=== PATIENT | male | born 1930 | race Caucasian/White ===

== ENCOUNTER 2018-03-06 18:15 | Inpatient (IN) ==
[2018-03-06] MEDS ORDERED: 0.9 % SODIUM CHLORIDE 1,000 ML IV ONE (18:25)
[2018-03-06 19:32] LABS: Basophils # (Auto) 0 K/mcL (0.0-0.3); Basophils % (Auto) 0.2 % (0.0-2.0); Eosinophils # (Auto) 0 K/mcL (0.0-0.7); Eosinophils % (Auto) 0.5 % (0.0-7.0); Granulocytes % (Auto) 76.8 % (38.0-78.0); Lymphocytes # (Auto) 1.1 K/mcL (1.5-4.8); Lymphocytes % (Auto) 12.4 % (15.5-49.0); Mean Cell Volume 98.8 fL (80.0-100.0); Mean Corpuscular HGB Conc 33.2 g/dL (31.0-36.0); Mean Corpuscular Hemoglobin 32.8 pg (26.0-34.0); Monocytes # (Auto) 0.9 K/mcL (0.1-0.9); Monocytes % (Auto) 10.1 % (1.0-12.0); Platelet Count 193 K/mcL (140-440); Red Cell Distribution Width 13.8 % (11.5-14.5)
[2018-03-06 19:42] LABS: Appearance,Urine CLOUDY; Bacteria,Urine 0 /hpf (0); Bilirubin,Urine NEG (NEG); Calcium Oxalate Crystals,Urine FEW /hpf (0); Color,Urine YELLOW; Glucose,Urine (UA) NEGATIVE (NEG); Leukocyte Esterase,Urine 25 /uL (NEG); Mucus,Urine MANY /hpf (0); Protein,Urine NEG (NEG); Specific Gravity,Urine 1.017 (1.000-1.035); Urine Blood NEG mg/dL (<0.03); Urine Hyaline Cast 3 /lpf (0-2); Urine RBC 2 /hpf (0-1); Urine Squamous Epithelial Cell 0 /hpf (0-4); Urine WBC 5 /hpf (0-4); Urobilinogen,Urine NEG (NEG)
[2018-03-06 19:55] LABS: ALT/SGPT 28 U/l (0-40); Albumin 3.9 gm/dL (3.2-5.2); Albumin/Globulin Ratio 1.6 (1.0-2.3); Alkaline Phosphatase 143 U/L (39-117); Blood Urea Nitrogen 27 mg/dl (8-23)
--- NOTE | 2018-03-06 20:25 | Emergency Department Note ---
Abdominal Pain HPI - General Chief Complaint: Abdominal Pain Stated Complaint: left lower abd pain Time Seen by Provider: 03/06/18 18:20 Source: patient Mode of arrival: ambulatory Limitations: no limitations - History of Present Illness HPI Narrative: 87-year-old male presents with abdominal pain for last week or so. states he just has generally decreased energy and weakness over the last week as well. States he constantly goes poop, a peanut butter consistency a little bit and can go a lot at one time. She also believes he is retaining urine. He is only gone once about 50 mL today. She has been checking his vital signs at home and they have been stable. Patient can give very little history and is poor historian with dementia. The is giving most of the history. She is concerned because this bowel movement issue is not normal for him. He is also been complaining of abdominal pain. No fever chills. No nausea or vomiting. Decreased appetite over the last week. He also has a history of kidney stones and obstruction. - Related Data Home Medications Medication Instructions Recorded Confirmed Ferrous Sulfate [Slow Release Iron] 45 mg PO DAILY 05/25/16 01/09/18 Multivitamin With [place] 3 1 cap PO DAILY 05/25/16 01/09/18 tamsulosin 0.4 mg capsule 0.4 mg PO QDAY 07/06/17 01/09/18 Previous Rx's Medication Instructions Recorded albuterol sulfate HFA 90 1 inh INHALATION Q6HP PRN #18 g 03/21/17 mcg/actuation aerosol inhaler ipratropium-albuterol 0.5 mg-3 3 ml INHALATION Q6H PRN #360 ml 04/10/17 mg(2.5 mg base)/3 mL nebulization soln testosterone cream See Label Instructions TOPICAL 09/21/17 .apply 2 clicks #30 MDD 5mg /0.25mg DC Oxygen #1 12/27/17 sildenafil (antihypertensive) 20 20 mg PO ONCE PRN #20 tab 01/23/18 mg tablet Allergies Allergy/AdvReac Type Severity Reaction Status Date / Time No Known Drug Allergies Allergy Verified 03/06/18 18:19 Review of Systems All systems ED: reviewed and negative except as stated. Abdominal Pain PMH - Past Medical History [facility] Narrative: Medical History (Last Reviewed 01/11/18 @ 11:18 by Kemal Crenshaw DO) Upper respiratory infection (Acute) Asthma exacerbation (Acute) COPD (chronic obstructive pulmonary disease) (Chronic) Hypoxemia (Chronic) Dysphagia (Chronic) Cough (Acute) Osteopenia determined by x-ray (Chronic) Kidney stones (Chronic) Community acquired bacterial pneumonia (Acute) Rib pain on right side (Acute) History of COPD (Acute) Aspiration pneumonia (Acute 05/27/16) Past Surgical History (Last Reviewed 01/11/18 @ 11:18 by Kemal Crenshaw DO) History of hernia surgery (Chronic) Medical history: Reports: asthma, COPD, kidney stones, renal disease, other ( pneumonia. Gallstones. Esophageal stricture. BPH.) Psychiatric history: Reports: no psych history - Social History Smoking status: Never smoker Alcohol use: Reports: None Drug use: Reports: none Physical Exam Limitations: no limitations General appearance: alert (Alert, pleasant, and cooperative but often confused at times an extremely poor historian) Head: atraumatic, normocephalic, normal inspection Eye: Present: normal appearance. Absent: conjunctival injection ENT: mucous membranes moist Chest: Present: normal inspection, symmetric chest wall rise Respiratory: Present: normal lung sounds bilaterally. Absent: respiratory distress, wheezes, accessory muscle use Cardiovascular: Present: regular rate, normal heart sounds Abdominal: Present: soft, tenderness (Diffuse abdominal tenderness, seems to be worse in the left lower quadrant), normal bowel sounds. Absent: distention, mass Back: Absent: CVA tenderness (R), CVA tenderness (L) Psychiatric: Present: normal affect, normal mood Skin: Present: warm, dry, intact, normal color. Absent: rash, cyanosis, diaphoresis, erythema Course Vital Signs Temperature 97.7 F 03/06/18 18:16 Pulse Rate 81 03/06/18 18:16 Respiratory Rate 18 03/06/18 18:16 Blood Pressure 117/72 03/06/18 18:16 Pulse Oximetry (%) 96 03/06/18 18:16 Temperature 97.7 F 03/06/18 18:16 Pulse Rate 81 03/06/18 18:16 Respiratory Rate 18 03/06/18 18:16 Blood Pressure 117/72 03/06/18 18:16 Pulse Oximetry (%) 96 03/06/18 18:16 Abdominal Pain - Lab Data Lab results reviewed: Yes I reviewed the patient's lab results. Result diagrams: 03/06/18 18:45 03/06/18 18:45 Lab Results 03/06/18 03/06/18 03/06/18 Range/Units 18:38 18:45 18:45 WBC 9.2 (4.5-11.0) K/mcL RBC 4.20 L (4.50-5.90) M/mcL Hgb 13.8 (13.5-16.5) g/dL Hct 41.5 (41.0-55.0) % POC Hct (41.0-55.0) % MCV 98.8 (80.0-100.0) fL MCH 32.8 (26.0-34.0) pg MCHC 33.2 (31.0-36.0) g/dL RDW 13.8 (11.5-14.5) % Plt Count 193 (140-440) K/mcL MPV 8.3 (7.4-10.4) fL Gran % 76.8 (38.0-78.0) % Lymph % (Auto) 12.4 L (15.5-49.0) % [place] % (Auto) 10.1 (1.0-12.0) % Eos % (Auto) 0.5 (0.0-7.0) % Baso % (Auto) 0.2 (0.0-2.0) % Gran # 7.1 (1.8-8.0) K/mcL Lymph # (Auto) 1.1 L (1.5-4.8) K/mcL [place] # (Auto) 0.9 (0.1-0.9) K/mcL Eos # (Auto) 0 (0.0-0.7) K/mcL Baso # (Auto) 0 (0.0-0.3) K/mcL VBG Lactic Acid (0.5-2.2) mmol/L POC Sodium (133-145) mmol/L Sodium 137 (133-145) mmol/L POC Potassium (3.3-5.1) mmol/L Potassium 4.2 (3.3-5.1) mmol/L POC Chloride (96-108) mmol/L Chloride 100 (96-108) mmol/L Carbon Dioxide 25 (22-30) mmol/L POC Total CO2 (22-30) mmol/L Anion Gap 12.0 (8-16) POC BUN (8-23) mg/dl BUN 27 H (8-23) mg/dl Creatinine 1.1 (0.7-1.2) mg/dl POC Creatinine (0.7-1.2) mg/dl GFR Calculation 60 Glucose 111 H (70-105) mg/dL POC Glucose (70-105) mg/dL Calcium 8.8 (8.6-10.4) mg/dl POC WB Ioniz Calcium (1.16-1.32) mmol/L Total Bilirubin 0.6 (0.0-1.0) mg/dL AST 25 (0-37) U/l ALT 28 (0-40) U/l Alkaline Phosphatase 143 H (39-117) U/L Total Protein 6.4 (5.9-8.4) gm/dL Albumin 3.9 (3.2-5.2) gm/dL Globulin 2.5 (2.2-3.7) gm/dL Albumin/Globulin Ratio 1.6 (1.0-2.3) Urine Color Yellow Urine Appearance Cloudy Urine pH 5.0 (5.0-9.0) Ur Specific [place] 1.017 (1.000-1.035) Urine Protein Neg (NEG) mg/dL Urine Glucose (UA) Negative (NEG) mg/dL Urine Ketones Neg (NEG) mg/dL Urine Occult Blood Neg (<0.03) mg/dL Urine Nitrate Neg (NEG) Urine Bilirubin Neg (NEG) mg/dL Urine Urobilinogen Neg (NEG) mg/dL Ur Leukocyte Esterase 25 A (NEG) /uL Urine RBC 2 H (0-1) /hpf Urine WBC 5 H (0-4) /hpf Ur Squamous Epith Cells 0 (0-4) /hpf Calcium Oxalate Crystal Few A (0) /hpf Urine Bacteria 0 (0) /hpf Hyaline Casts 3 H (0-2) /lpf Urine Mucus Many A (0) /hpf Ur Culture Indicated? Yes 03/06/18 03/06/18 Range/Units 18:45 19:17 WBC (4.5-11.0) K/mcL RBC (4.50-5.90) M/mcL Hgb (13.5-16.5) g/dL Hct (41.0-55.0) % POC Hct 40.0 L (41.0-55.0) % MCV (80.0-100.0) fL MCH (26.0-34.0) pg MCHC (31.0-36.0) g/dL RDW (11.5-14.5) % Plt Count (140-440) K/mcL MPV (7.4-10.4) fL Gran % (38.0-78.0) % Lymph % (Auto) (15.5-49.0) % [place] % (Auto) (1.0-12.0) % Eos % (Auto) (0.0-7.0) % Baso % (Auto) (0.0-2.0) % Gran # (1.8-8.0) K/mcL Lymph # (Auto) (1.5-4.8) K/mcL [place] # (Auto) (0.1-0.9) K/mcL Eos # (Auto) (0.0-0.7) K/mcL Baso # (Auto) (0.0-0.3) K/mcL VBG Lactic Acid 1.2 (0.5-2.2) mmol/L POC Sodium 136 (133-145) mmol/L Sodium (133-145) mmol/L POC Potassium 4.0 (3.3-5.1) mmol/L Potassium (3.3-5.1) mmol/L POC Chloride 101 (96-108) mmol/L Chloride (96-108) mmol/L Carbon Dioxide (22-30) mmol/L POC Total CO2 26 (22-30) mmol/L Anion Gap (8-16) POC BUN 31 H (8-23) mg/dl BUN (8-23) mg/dl Creatinine (0.7-1.2) mg/dl POC Creatinine 1.1 (0.7-1.2) mg/dl GFR Calculation Glucose (70-105) mg/dL POC Glucose 113 H (70-105) mg/dL Calcium (8.6-10.4) mg/dl POC WB Ioniz Calcium 1.06 L (1.16-1.32) mmol/L Total Bilirubin (0.0-1.0) mg/dL AST (0-37) U/l ALT (0-40) U/l Alkaline Phosphatase (39-117) U/L Total Protein (5.9-8.4) gm/dL Albumin (3.2-5.2) gm/dL Globulin (2.2-3.7) gm/dL Albumin/Globulin Ratio (1.0-2.3) Urine Color Urine Appearance Urine pH (5.0-9.0) Ur Specific [place] (1.000-1.035) Urine Protein (NEG) mg/dL Urine Glucose (UA) (NEG) mg/dL Urine Ketones (NEG) mg/dL Urine Occult Blood (<0.03) mg/dL Urine Nitrate (NEG) Urine Bilirubin (NEG) mg/dL Urine Urobilinogen (NEG) mg/dL Ur Leukocyte Esterase (NEG) /uL Urine RBC (0-1) /hpf Urine WBC (0-4) /hpf Ur Squamous Epith Cells (0-4) /hpf Calcium Oxalate Crystal (0) /hpf Urine Bacteria (0) /hpf Hyaline Casts (0-2) /lpf Urine Mucus (0) /hpf Ur Culture Indicated? - Radiology Data Radiology results reviewed: Yes I reviewed the patient's radiology results. Disposition Pt seen by [facility]/PA only: Yes Clinical Impression: Fecal impaction, Urinary retention Disposition: Home, Self-Care Condition: Fair Instructions: Fecal Impaction (ED), Urinary Retention in Men (ED) Additional Instructions: Increase oral fluids and rest. Follow-up with primary care provider within the next 1-2 days for recheck and to help get established with home health Referrals: Kemal Crenshaw DO [Physician] -
[2018-03-06] MEDS ORDERED: LIDOCAINE JEL 2% 1 TUBE 30GM TOPICAL ONE (21:14)
[2018-03-06] MEDS ORDERED: FLEETS ADULT ENEMA PR ONE (21:57)
[2018-03-06] MEDS ORDERED: PEG 3350/NA SULF,BICARB,CL/KCL 4,000 ML ORAL.SOL PO ONE (23:22)
[2018-03-07] MEDS ORDERED: ONDANSETRON ODT 4 MG TABLET SL ONE (01:08)
--- NOTE | 2018-03-07 05:00 | Cat Scan Report ---
CLINICAL INFORMATION: Urinary retention and pelvic pain COMPARISON: 12/01/2017 chest abdomen and pelvic CT TECHNIQUE: Following enteric contrast, 80 cc of Isovue-300 were injected intravenously, and 60 seconds later, 0.625 mm helical slices were obtained from the mid heart through the subtrochanteric regions. Following reconstruction, 2.5 mm sagittal, coronal and axial reformatted images were processed and reviewed at bone, lung and soft tissue windows. Five minutes later, 0.625 mm helical slices were obtained from the mid heart through the kidneys and viewed at soft tissue windows.The exam was performed using radiation dose optimization techniques including, but not limited to, automated exposure control, adjustment of the mA and/or kV according to patient size and use of iterative reconstruction technique. FINDINGS: The lung bases show minimal scarring or atelectasis in the lower lobes and lingula. There are no effusions. The visualized heart is grossly normal. Images through the abdomen show a 5 mm simple cyst in the subdiaphragmatic right hepatic lobe - no significant hepatic abnormality. The gallbladder and bile ducts are normal: CBD is 5 mm. There are scattered calcifications within the pancreatic neck, body and tail - as previously seen. Findings compatible with chronic inactive pancreatitis. Pancreatic duct is slightly dilated - 3 mm also stable. A few nonobstructing stones the calyces of both kidneys ranging up to three mm mid calyx of the left kidney. This is unchanged. Bilateral simple renal cysts also stable. Both adrenal glands, spleen and aorta are normal in contour and caliber without focal lesion. 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 There is mild poststenotic dilatation. The SMA shows atherosclerotic plaque, but no stenosis. Both renal arteries, RONALDO and iliac arteries contain calcified atherosclerotic plaque, but no stenoses . Images through the pelvis show urinary bladder is mildly distended. The prostate is surgically absent resulting in mild dilatation of the posterior urethra. A very large amount of stool is present within the rectosigmoid region. The remainder of the colon contains only moderate stool. Small bowel and stomach are unremarkable. Small hiatal hernia is again noted. There is no free air, free fluid or adenopathy. Bone windows show acute refracture left lateral 11th rib and old fracture of the left 10th rib. IMPRESSION: 1. Massive stool in the rectosigmoid region which extrinsically compresses the posterior urinary bladder wall - possibly affecting urination function. 2. Small nonobstructing stones in the calyces of both kidneys ranging up to 3 mm. No evidence of obstructing stone. Bilateral renal cysts - stable 3. Scattered calcifications within the pancreatic body and tail compatible with chronic inactive pancreatitis. Mild dilatation of the pancreatic duct also stable 4. 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 Please correlate with post prandial pain 5. Small hiatal hernia stable 6. Acute refracture left lateral 11th rib Interpreted and Authenticated by: Kemal Ornelas 03/07/18
--- NOTE | 2018-03-07 08:53 | Emergency Department Note ---
ED Note Addendum Note Addendum: Nurses worked on this patient through the night with some disimpaction and had a drinker jugular GoLYTELY and still have not completed his passage of stool. He has been here now 14 and half hours and will be admitted to the hospital observation for continued attempts at relieving his impaction and constipation. The patient was doing well this morning is actually hungry and a little bit of breakfast.
--- NOTE | 2018-03-07 10:19 | XRay Report ---
CLINICAL INFORMATION: Cough, COMPARISON: 12/29/2017 FINDINGS: Heart size, mediastinum and pulmonary vessels are normal. Mild patchy left basilar infiltrate is developed. Right diaphragm is mildly elevated. COPD changes noted. IMPRESSION: Mild patchy left basilar infiltrate. COPD Mild elevation right diaphragm Interpreted and Authenticated by: Kemal Ornelas 03/07/18
--- NOTE | 2018-03-07 10:50 | Internal Med History&Physical ---
Medical - H&P: HPI Patient information: Note initiated : 03/07/18 at 10:48 am Service Date, if different from initiated Date: [] Patient: Reginald Gonzales 87 y/o M admitted on 03/07/18 for left lower abd pain. Chief Complaint: [] History of present illness: Mr. Gonzales is a 87 year old Male with multiple medical issues, presents to the ER yesterday evening with complaints of abdominal pain, difficulty in urination and not feeling well. The patient ntoes that he has not been having regular bowel movements, last decent BM was 2 weeks ago, on and off little stool has since come but not the usual amount. He did not endorse any stool incontinence however ED note mentions that the patient has had some stool incontinence. The patient is a very poor history provider. This at bedside help getting some answers. The patient notes abdominal pain has been going on since yesterday, lower abdomen moderate to severe in nature, it is also intermittent. Spasmodic. No aggravating or relieving factors. The patient has history of COPD, chronic aspirations, dysphagia. He denies any history of bowel issues in the past. He has never had any colonoscopy done. The patient in the ED had stable vital signs, unremarkable labs, CT abdomen and pelvis showed very large stool burden in the in the rectosigmoid region, compressing the posterior part of the bladder possibly causing urinary symptoms. The ED physician yesterday started the patient on GoLYTELY and also did manual evacuation. The patient was in the ED for 14 hours, patient did not have a decent bowel movement. The plan was to continue aggressive bowel regimen and see if he is able to pass the stools. He also received fleets enema in the ED. Given that the patient was 50 was done in the ED and had not responded to treatment he was therefore admitted to the hospital for observation The patient denies any headache, has diplopia has been seen by [employer] who has referred him to a neurologist. Intermittent difficulty in swallowing, denies any chest pain or shortness of breath no acute cough but did have cough few days ago. He was treated with antibiotics for same. The patient has no nausea no vomiting, lower abdominal pain as reported urinary symptoms as reported. He denies any acute joint pain skin rashes. The patient visits to be full code Review of systems: Denies headache, dizziness, diplopia present chronic as outpatient follow-up Denies chest pain, palpitations Denies cough or shortness of breath Abdominal pain present, no nausea vomiting.. Medical - H&P: [facility] Medical history: Medical History (Last Reviewed 01/11/18 @ 11:18 by Kemal Crenshaw DO) Upper respiratory infection (Acute) Asthma exacerbation (Acute) COPD (chronic obstructive pulmonary disease) (Chronic) Hypoxemia (Chronic) Dysphagia (Chronic) Cough (Acute) Osteopenia determined by x-ray (Chronic) Kidney stones (Chronic) Community acquired bacterial pneumonia (Acute) Rib pain on right side (Acute) History of COPD (Acute) Aspiration pneumonia (Acute 05/27/16) Surgical history: Past Surgical History (Last Reviewed 01/11/18 @ 11:18 by Kemal Crenshaw DO) History of hernia surgery (Chronic) Family history: reviewed and not pertinent Medical - H&P: Meds Home Medications Medication Instructions Recorded Confirmed Type Ferrous Sulfate [Slow Release Iron] 45 mg PO DAILY 05/25/16 03/07/18 History Multivitamin With [place] 3 1 cap PO DAILY 05/25/16 03/07/18 History albuterol sulfate HFA 90 1 inh INHALATION Q6HP PRN #18 g 03/21/17 03/07/18 Rx mcg/actuation aerosol inhaler ipratropium-albuterol 0.5 mg-3 3 ml INHALATION Q6H PRN #360 ml 04/10/17 Rx mg(2.5 mg base)/3 mL nebulization soln tamsulosin 0.4 mg capsule 0.4 mg PO QDAY 07/06/17 03/07/18 History testosterone cream See Label Instructions TOPICAL 09/21/17 01/09/18 Rx .apply 2 clicks #30 MDD 5mg /0.25mg DC Oxygen #1 12/27/17 01/09/18 Rx sildenafil (antihypertensive) 20 20 mg PO ONCE PRN #20 tab 01/23/18 Rx mg tablet Allergies Allergy/AdvReac Type Severity Reaction Status Date / Time No Known Drug Allergies Allergy Verified 03/06/18 18:19 Medical - H&P: Exam - Constitutional Vitals: Temp Pulse Resp BP Pulse Ox 97.7 F 67 18 152/84 94 03/07/18 09:38 03/07/18 09:38 03/07/18 09:38 03/07/18 09:38 03/07/18 09:38 Exam: Constitutional; Afebrile, cooperative, alert, not in distress. but slow in responding to questions and movements Eyes- No icterus, , No periorbital swelling Ears- Ext ear normal, hearing normal to conversation. Neck- Midline trachea, supple Respiratory system: Air Entry equal on both sides, No crackles or wheezing, no rhonchi. CVS- Rate rhythm regular, S1,S2 heard, no gallop, no rub. Abdomen- Soft nontender abdomen, he is a bit tender to palpation on the lower abdomen, but no guarding or rigidity noted. INFORMATION SYSTEMS CONSULTANT- AOOx3, moving all extremities, no gross focal deficit noted. Medical - H&P: Reslt - Labs CBC & Chem 7: 03/06/18 18:45 03/06/18 18:45 Labs: Short CBC 03/06/18 Range/Units 18:45 WBC 9.2 (4.5-11.0) K/mcL Hgb 13.8 (13.5-16.5) g/dL Hct 41.5 (41.0-55.0) % Plt Count 193 (140-440) K/mcL BMP 03/06/18 18:45 Sodium 137 Potassium 4.2 Chloride 100 Carbon Dioxide 25 BUN 27 H Creatinine 1.1 Glucose 111 H Calcium 8.8 Liver Function 03/06/18 Range/Units 18:45 Total Bilirubin 0.6 (0.0-1.0) mg/dL AST 25 (0-37) U/l ALT 28 (0-40) U/l Alkaline Phosphatase 143 H (39-117) U/L Albumin 3.9 (3.2-5.2) gm/dL Urine 03/06/18 Range/Units 18:38 Urine Color Yellow Urine Appearance Cloudy Urine pH 5.0 (5.0-9.0) Ur Specific [place] 1.017 (1.000-1.035) Urine Protein Neg (NEG) mg/dL Urine Glucose (UA) Negative (NEG) mg/dL Medical - H&P: A/P - Narrative A/P Narrative: A/P Acute constipation Abdominal pain COPD h/o recurrent Aspiration pna Plan Admit as obs Pt had nearly finished his golyotely, enema and digital evacuation done in the ER plan to give milk of molases enema to helf soften the stools cxr shows left lower lobe new possible infiltrate, no clincal symptms, check procalcitonin. resume home meds Gen surgery consult if pt does not respond DVT hep sc Diet NPO for now/ meds ok Full code. Social History - Social History marital status: - Tobacco smoking status: Never smoker - Alcohol alcohol intake frequency: holiday/special occasion only - Substance use substance use type: does not use
[2018-03-07] MEDS ORDERED: ACETAMINOPHEN 650 MG/65 ML BOTTLE IV PRN ×3 (10:54→11:31)
[2018-03-07] MEDS ORDERED: ACETAMINOPHEN 325 MG TABLET PO PRN (11:25)
[2018-03-07] MEDS ORDERED: oxyCODONE HCL 5 MG TABLET PO PRN (11:25)
[2018-03-07] MEDS ORDERED: ONDANSETRON ODT 4 MG TABLET SL PRN (11:25)
[2018-03-07] MEDS: FAMOTIDINE/PF 20 MG/2 ML VIAL IV SCH ×2 (12:02→22:18)
[2018-03-07] MEDS: HEPARIN 5,000 UNIT/ML VIAL SQ SCH ×2 (12:02→22:18)
[2018-03-07] MEDS: IPRATROPIUM/ALBUTEROL 3 ML AMPUL.NEB NEB SCH ×2 (13:38→19:18)
[2018-03-07 15:31] LABS: Basophils # (Auto) 0 K/mcL (0.0-0.3); Basophils % (Auto) 0.1 % (0.0-2.0); Eosinophils # (Auto) 0 K/mcL (0.0-0.7); Eosinophils % (Auto) 0.1 % (0.0-7.0); Granulocytes % (Auto) 81.9 % (38.0-78.0); Lymphocytes # (Auto) 0.7 K/mcL (1.5-4.8); Lymphocytes % (Auto) 7.4 % (15.5-49.0); Mean Cell Volume 99.3 fL (80.0-100.0); Mean Corpuscular Hemoglobin 32.7 pg (26.0-34.0); Monocytes % (Auto) 10.5 % (1.0-12.0); Platelet Count 176 K/mcL (140-440); RBC 4.24 M/mcL (4.50-5.90); Red Cell Distribution Width 13.6 % (11.5-14.5)
[2018-03-07 15:41] LABS: ALT/SGPT 22 U/l (0-40); Albumin 3.6 gm/dL (3.2-5.2); Albumin/Globulin Ratio 1.5 (1.0-2.3); Alkaline Phosphatase 147 U/L (39-117); Bilirubin,Direct < 0.2 mg/dL (0.0-0.3); Blood Urea Nitrogen 21 mg/dl (8-23); Gamma Glutamyl Transpeptidase 28 U/L (8-61)
[2018-03-07] MEDS ORDERED: DEXTROSE 5%-1/2NS W/20MEQ KCL 1,000 ML IV SCH (18:30)
[2018-03-07] MEDS: 0.9 % SODIUM CHLORIDE 10 ML SYRINGE IV SCH ×2 (19:23→22:11)
[2018-03-08] MEDS: IPRATROPIUM/ALBUTEROL 3 ML AMPUL.NEB NEB SCH ×4 (03:37→19:12)
[2018-03-08] MEDS: 0.9 % SODIUM CHLORIDE 10 ML SYRINGE IV SCH ×3 (05:10→20:45)
--- NOTE | 2018-03-08 07:46 | XRay Report ---
CLINICAL INFORMATION: Abdominal pain COMPARISON: Abdomen and pelvic CT 03/06/2018 FINDINGS: The amount of stool in the distal sigmoid mass or rectal region has decreased since CT two days prior. There is moderate residual. The colon and small bowel remain mildly dilated with scattered air-fluid levels on the upright compatible with mild ileus.. No free air, soft tissue mass or organomegaly. IMPRESSION: Mild ileus with a moderate stool in the rectosigmoid region. Stool volume has decreased since the CT two days ago Interpreted and Authenticated by: Kemal Ornelas 03/08/18
[2018-03-08] MEDS: PIPERACILLIN SODIUM/TAZOBACTAM 3.375 GM in DEXTROSE 5% IN WATER 50 ML IV SCH ×3 (09:31→18:26)
[2018-03-08] MEDS: HEPARIN 5,000 UNIT/ML VIAL SQ SCH ×2 (09:37→20:46)
[2018-03-08] MEDS: FAMOTIDINE/PF 20 MG/2 ML VIAL IV SCH ×2 (09:38→20:46)
[2018-03-08] MEDS ORDERED: MAGNESIUM CITRATE 300 ML ORAL.SOL PO ONE (09:48)
--- NOTE | 2018-03-08 11:25 | Internal Med Progress Note ---
Medical - PN: Subj Patient information: Note initiated : 03/08/18 at 11:23 am Service Date, if different from initiated Date: [] Patient: Reginald Gonzales 87 y/o M admitted on 03/08/18 for Left Lower Abd Pain/ Constipation. Chief Complaint: [] Interval history: Mr. Gonzales is a 87 year old Male with multiple medical issues, presents to the ER yesterday evening with complaints of abdominal pain, difficulty in urination and not feeling well. The patient ntoes that he has not been having regular bowel movements, last decent BM was 2 weeks ago, on and off little stool has since come but not the usual amount. He did not endorse any stool incontinence however ED note mentions that the patient has had some stool incontinence. The patient is a very poor history provider. This at bedside help getting some answers. The patient notes abdominal pain has been going on since yesterday, lower abdomen moderate to severe in nature, it is also intermittent. Spasmodic. No aggravating or relieving factors. The patient has history of COPD, chronic aspirations, dysphagia. He denies any history of bowel issues in the past. He has never had any colonoscopy done. The patient in the ED had stable vital signs, unremarkable labs, CT abdomen and pelvis showed very large stool burden in the in the rectosigmoid region, compressing the posterior part of the bladder possibly causing urinary symptoms. The ED physician yesterday started the patient on GoLYTELY and also did manual evacuation. The patient was in the ED for 14 hours, patient did not have a decent bowel movement. The plan was to continue aggressive bowel regimen and see if he is able to pass the stools. He also received fleets enema in the ED. Given that the patient was 50 was done in the ED and had not responded to treatment he was therefore admitted to the hospital for observation The patient denies any headache, has diplopia has been seen by fish butcher who has referred him to a neurologist. Intermittent difficulty in swallowing, denies any chest pain or shortness of breath no acute cough but did have cough few days ago. He was treated with antibiotics for same. The patient has no nausea no vomiting, lower abdominal pain as reported urinary symptoms as reported. He denies any acute joint pain skin rashes. The patient visits to be full code 6/7 Patient seen and examined, overnight has had few liquid bowel movements but no major solid bowel movement. Patient was confused agitated last night I believe he also ripped his IV out. Chest x-ray shows possible pneumonia on the left side, although the pro-calcitonin is negative given his mental status changes we will start him on Zosyn. The patient underwent digital rectal evacuation for stools in the rectal vault today, I believe there is still some stool left in the upper part which was not accessible to digital evacuation. Change the status of the patient from observation to inpatient given possibility of a pneumonia as well as unresolved GI issues which would take more than 48 hours. Keep the patient n.p.o. Plan of care reviewed with the patient's . Patient overall has poor prognosis however the patient's notes that patient has had multiple infections bumped his back from every infection. The patient also has been experiencing some neurological issues like neuropathy, according to the that has some paranoid features. The patient has been referred to a neurologist. Pertinent ROS: Denies headache, dizziness Denies chest pain, palpitations Denies cough or shortness of breath abdominal pain not as severe, no nausea / vomiting. - Constitutional Vitals: Vital Signs Temp Pulse Resp BP Pulse Ox 98.9 F 64 18 121/74 94 03/08/18 08:00 03/08/18 04:00 03/08/18 08:00 03/08/18 08:00 03/08/18 08:00 Period Temp Pulse Resp BP Sys/Eduardo Pulse Ox Last 24 Hr 97.6 F-98.9 F 64-73 14-18 121-167/73-89 94-96 Intake and Output 03/07/18 03/08/18 03/08/18 21:59 05:59 13:59 Intake Total 793 / 793 50 / 50 Output Total 450 / 450 1075 / 1075 Balance -450 / -450 -282 / -282 50 / 50 Intake & Output: Intake & Output 03/07/18 03/08/18 03/08/18 21:59 05:59 13:59 Intake Total 793 / 793 50 / 50 Output Total 450 / 450 1075 / 1075 Balance -450 / -450 -282 / -282 50 / 50 Intake: IV 773 / 773 50 / 50 Dextrose 5%-1/2Ns W/20Meq KCl 1 773 / 773 ,000 ml @ 75 mls/hr IV .[id number] [facility] Rx#:[id number] Zosyn 3.375 gm In Dextrose 5% 50 / 50 in Water 50 ml @ 100 mls/hr IV Q6H [facility] Rx#:[id number] Oral 20 / 20 Output: Urine Catheter Amount 450 / 450 1075 / 1075 Other: Stool Size Copious Copious Moderate Stool Color Black Brown Brown Stool Consistency Loose Liquid Loose # Bowel Movements 1 1 # of times incontinent of 1 1 1 Bowels Exam: Constitutional; Afebrile, cooperative, alert, not in distress. keeps his eyes closed, does not talk much Eyes- No icterus, , No periorbital swelling Ears- Ext ear normal, hearing normal to conversation. Neck- Midline trachea, supple Respiratory system: Air Entry equal on both sides, No crackles or wheezing, no rhonchi. CVS- Rate rhythm regular, S1,S2 heard, no gallop, no rub. Abdomen- Soft nontender abdomen, no organomegaly, no tenderness, no guarding or rigidity, WHEEL PRESSER- AOOx2, moving all extremities, no gross focal deficit noted. Medical - PN: Obj Da - Labs CBC & Chem 7: 03/07/18 13:18 03/07/18 13:18 Labs: Abnormal Lab Results 03/07/18 03/07/18 03/06/18 13:18 13:18 18:45 RBC 4.24 L POC Hct 40.0 L Gran % 81.9 H Lymph % (Auto) 7.4 L Lymph # (Auto) 0.7 L [place] # (Auto) 1.0 H POC BUN 31 H BUN Glucose 107 H POC Glucose 113 H Calcium 8.3 L POC WB Ioniz Calcium 1.06 L Alkaline Phosphatase 147 H Ur Leukocyte Esterase Urine RBC Urine WBC Calcium Oxalate Crystal Hyaline Casts Urine Mucus 03/06/18 03/06/18 03/06/18 18:45 18:45 18:38 RBC 4.20 L POC Hct Gran % Lymph % (Auto) 12.4 L Lymph # (Auto) 1.1 L [place] # (Auto) POC BUN BUN 27 H Glucose 111 H POC Glucose Calcium POC WB Ioniz Calcium Alkaline Phosphatase 143 H Ur Leukocyte Esterase 25 A Urine RBC 2 H Urine WBC 5 H Calcium Oxalate Crystal Few A Hyaline Casts 3 H Urine Mucus Many A Meds: Medications Acetaminophen (Tylenol) 650 mg PO Q6HP PRN PRN Reason: PAIN/FEVER > 101 Albuterol/Ipratropium (Duoneb) 3 ml NEB Q6HRT [facility] Last Admin: 03/08/18 08:58 Dose: Not Given Famotidine (Pepcid) 20 mg IV Q12 [facility] Last Admin: 03/08/18 09:38 Dose: 20 mg Heparin Sodium (Porcine) (Heparin) 5,000 unit SQ Q12 [facility] Last Admin: 03/08/18 09:37 Dose: 5,000 unit Acetaminophen (Ofirmev) 650 mg in 65 mls @ 130 mls/hr IV Q6HP PRN PRN Reason: PAIN/FEVER > 101 Last Admin: 03/07/18 19:36 Dose: 130 mls/hr Piperacillin Sod/Tazobactam (Sod 3.375 gm/ Dextrose) 50 mls @ 100 mls/hr IV Q6H [facility] Last Infusion: 03/08/18 10:01 Dose: Infused Ondansetron HCl (Zofran Odt) 4 mg SL Q6HP PRN PRN Reason: Nausea And Vomiting Oxycodone HCl (Roxicodone) 5 mg PO Q4HP PRN PRN Reason: PAIN LEVEL 3-6 Last Admin: 03/07/18 11:41 Dose: 5 mg Polyethylene Glycol (Miralax) 17 gm PO TID [facility] Sodium Chloride (Saline Flush) 10 ml IV Q8 [facility] Last Admin: 03/08/18 05:10 Dose: Not Given Tamsulosin HCl (Flomax) 0.4 mg PO QDAY [facility] Medical - PN: A/P - Time Spent With Patient Total time spent is greater than 50% in coordination of care (as documented) at patient's floor/unit and/or counseling patient: - Narrative A/P Narrative: A/P Acute constipation Abdominal pain COPD possible aspiration pneumonia Plan change to inpt status Digital rectal evacuation done, today, start on miralax tid 17gms start on iv zosyn for aspiration pneumonitis, no wheezing on exam, duonebs q6hrs for copd. DVT hep sc Diet NPO for now/ meds ok Full code. Medical - PN: Qual - Stroke Symptom Onset Unknown: No - VTE Deep Vein Thrombosis/Pulmonary Embolism Present on Admission: No
[2018-03-08] MEDS: POLYETHYLENE GLYCOL 3350 17 GM PACKET PO SCH ×3 (11:45→20:46)
[2018-03-08] MEDS: TAMSULOSIN 0.4 MG CAPSULE PO SCH (11:45)
[2018-03-09] MEDS: PIPERACILLIN SODIUM/TAZOBACTAM 3.375 GM in DEXTROSE 5% IN WATER 50 ML IV SCH ×3 (00:18→13:06)
[2018-03-09] MEDS: IPRATROPIUM/ALBUTEROL 3 ML AMPUL.NEB NEB SCH ×4 (00:47→18:54)
[2018-03-09] MEDS: 0.9 % SODIUM CHLORIDE 10 ML SYRINGE IV SCH ×3 (06:00→21:14)
--- NOTE | 2018-03-09 07:51 | XRay Report ---
CLINICAL INFORMATION: Constipation COMPARISON: 03/08/2018 FINDINGS: Mild ileus pattern featuring symmetric dilatation of the small and large bowel again noted. Most of the dual has been cleared in the distal sigmoid and rectal region. No free air or soft tissue mass. IMPRESSION: Mild ileus. Near complete interval clearance in rectosigmoid stool Interpreted and Authenticated by: Kemal Ornelas 03/09/18
[2018-03-09] MEDS: TAMSULOSIN 0.4 MG CAPSULE PO SCH (09:58)
[2018-03-09] MEDS: FAMOTIDINE/PF 20 MG/2 ML VIAL IV SCH (09:58)
[2018-03-09] MEDS: HEPARIN 5,000 UNIT/ML VIAL SQ SCH ×2 (09:58→21:14)
[2018-03-09] MEDS: POLYETHYLENE GLYCOL 3350 17 GM PACKET PO SCH ×4 (09:58→21:14)
--- NOTE | 2018-03-09 15:26 | Internal Med Progress Note ---
Medical - PN: Subj Patient information: Note initiated : 03/09/18 at 3:18 pm Service Date, if different from initiated Date: [] Patient: Reginald Gonzales 87 y/o M admitted on 03/08/18 for Left Lower Abd Pain/ Constipation. Chief Complaint: [] Interval history: Mr. Gonzales is a 87 year old Male with multiple medical issues, presents to the ER yesterday evening with complaints of abdominal pain, difficulty in urination and not feeling well. The patient ntoes that he has not been having regular bowel movements, last decent BM was 2 weeks ago, on and off little stool has since come but not the usual amount. He did not endorse any stool incontinence however ED note mentions that the patient has had some stool incontinence. The patient is a very poor history provider. This at bedside help getting some answers. The patient notes abdominal pain has been going on since yesterday, lower abdomen moderate to severe in nature, it is also intermittent. Spasmodic. No aggravating or relieving factors. The patient has history of COPD, chronic aspirations, dysphagia. He denies any history of bowel issues in the past. He has never had any colonoscopy done. The patient in the ED had stable vital signs, unremarkable labs, CT abdomen and pelvis showed very large stool burden in the in the rectosigmoid region, compressing the posterior part of the bladder possibly causing urinary symptoms. The ED physician yesterday started the patient on GoLYTELY and also did manual evacuation. The patient was in the ED for 14 hours, patient did not have a decent bowel movement. The plan was to continue aggressive bowel regimen and see if he is able to pass the stools. He also received fleets enema in the ED. Given that the patient was 50 was done in the ED and had not responded to treatment he was therefore admitted to the hospital for observation The patient denies any headache, has diplopia has been seen by outdoor pursuits instructor who has referred him to a neurologist. Intermittent difficulty in swallowing, denies any chest pain or shortness of breath no acute cough but did have cough few days ago. He was treated with antibiotics for same. The patient has no nausea no vomiting, lower abdominal pain as reported urinary symptoms as reported. He denies any acute joint pain skin rashes. The patient visits to be full code 6/7 Patient seen and examined, overnight has had few liquid bowel movements but no major solid bowel movement. Patient was confused agitated last night I believe he also ripped his IV out. Chest x-ray shows possible pneumonia on the left side, although the pro-calcitonin is negative given his mental status changes we will start him on Zosyn. The patient underwent digital rectal evacuation for stools in the rectal vault today, I believe there is still some stool left in the upper part which was not accessible to digital evacuation. Change the status of the patient from observation to inpatient given possibility of a pneumonia as well as unresolved GI issues which would take more than 48 hours. Keep the patient n.p.o. Plan of care reviewed with the patient's . Patient overall has poor prognosis however the patient's notes that patient has had multiple infections bumped his back from every infection. The patient also has been experiencing some neurological issues like neuropathy, according to the that has some paranoid features. The patient has been referred to a neurologist. 03/09 Pt seen examined doing much better today, awake, and feels better X ray shows improved stool burden and improved ileus Resume oral diet d/c ABX no e/o infection d/c nirmal Continue to work with rehab to see if this helps patient improve his overall condition. Can be d/c home over the weekend or may go to SNF on monday recheck X ray abdo in AM on miralax tid for constipation. Pertinent ROS: Denies headache, dizziness Denies chest pain, palpitations Denies cough or shortness of breath Denies abdominal pain, nausea or vomiting. - Constitutional Vitals: Vital Signs Temp Pulse Resp BP Pulse Ox 97.9 F 88 18 125/79 98 03/09/18 12:00 03/09/18 13:36 03/09/18 13:36 03/09/18 12:00 03/09/18 12:00 Period Temp Pulse Resp BP Sys/Eduardo Pulse Ox Last 24 Hr 97.3 F-98.0 F 66-88 14-18 107-146/65-79 94-98 Intake and Output 03/09/18 03/09/18 03/09/18 05:59 13:59 21:59 Intake Total 50 / 50 50 / 50 Output Total 800 / 800 Balance -750 / -750 50 / 50 Weight 149 lb Patient Weight 03/10/18 05:59 Weight 149 lb Intake & Output: Intake & Output 03/09/18 03/09/18 03/09/18 05:59 13:59 21:59 Intake Total 50 / 50 50 / 50 Output Total 800 / 800 Balance -750 / -750 50 / 50 Weight 149 lb Intake: IV 50 / 50 50 / 50 Zosyn 3.375 gm In Dextrose 5% 50 / 50 50 / 50 in Water 50 ml @ 100 mls/hr IV Q6H [facility] Rx#:[id number] Output: Urine Catheter Amount 800 / 800 Other: Stool Size Small Moderate Stool Color Brown Brown Stool Consistency Liquid Loose # Bowel Movements 1 # of times incontinent of 1 Bowels Exam: Constitutional; Afebrile, cooperative, alert, not in distress. Eyes- No icterus, , No periorbital swelling Ears- Ext ear normal, hearing normal to conversation. Neck- Midline trachea, supple Respiratory system: Air Entry equal on both sides, No crackles or wheezing, no rhonchi. CVS- Rate rhythm regular, S1,S2 heard, no gallop, no rub. Abdomen- Soft nontender abdomen, no organomegaly, no tenderness, no guarding or rigidity, DOCTOR ASSISTANT- AOOx3, moving all extremities, no gross focal deficit noted. Medical - PN: Obj Da - Labs CBC & Chem 7: 03/07/18 13:18 03/07/18 13:18 Labs: Abnormal Lab Results 03/07/18 03/07/18 03/06/18 13:18 13:18 18:45 RBC 4.24 L POC Hct 40.0 L Gran % 81.9 H Lymph % (Auto) 7.4 L Lymph # (Auto) 0.7 L [place] # (Auto) 1.0 H POC BUN 31 H BUN Glucose 107 H POC Glucose 113 H Calcium 8.3 L POC WB Ioniz Calcium 1.06 L Alkaline Phosphatase 147 H Ur Leukocyte Esterase Urine RBC Urine WBC Calcium Oxalate Crystal Hyaline Casts Urine Mucus 03/06/18 03/06/18 03/06/18 18:45 18:45 18:38 RBC 4.20 L POC Hct Gran % Lymph % (Auto) 12.4 L Lymph # (Auto) 1.1 L [place] # (Auto) POC BUN BUN 27 H Glucose 111 H POC Glucose Calcium POC WB Ioniz Calcium Alkaline Phosphatase 143 H Ur Leukocyte Esterase 25 A Urine RBC 2 H Urine WBC 5 H Calcium Oxalate Crystal Few A Hyaline Casts 3 H Urine Mucus Many A Meds: Medications Acetaminophen (Tylenol) 650 mg PO Q6HP PRN PRN Reason: PAIN/FEVER > 101 Albuterol/Ipratropium (Duoneb) 3 ml NEB Q6HRT [facility] Last Admin: 03/09/18 13:35 Dose: 3 ml Famotidine (Pepcid) 20 mg IV Q12 [facility] Last Admin: 03/09/18 09:58 Dose: 20 mg Heparin Sodium (Porcine) (Heparin) 5,000 unit SQ Q12 [facility] Last Admin: 03/09/18 09:58 Dose: 5,000 unit Acetaminophen (Ofirmev) 650 mg in 65 mls @ 130 mls/hr IV Q6HP PRN PRN Reason: PAIN/FEVER > 101 Last Admin: 03/07/18 19:36 Dose: 130 mls/hr Ondansetron HCl (Zofran Odt) 4 mg SL Q6HP PRN PRN Reason: Nausea And Vomiting Oxycodone HCl (Roxicodone) 5 mg PO Q4HP PRN PRN Reason: PAIN LEVEL 3-6 Last Admin: 03/07/18 11:41 Dose: 5 mg Polyethylene Glycol (Miralax) 17 gm PO TID [facility] Last Admin: 03/09/18 10:01 Dose: Not Given Sodium Chloride (Saline Flush) 10 ml IV Q8 [facility] Last Admin: 03/09/18 06:00 Dose: 10 ml Tamsulosin HCl (Flomax) 0.4 mg PO QDAY [facility] Last Admin: 03/09/18 09:58 Dose: 0.4 mg Medical - PN: A/P - Time Spent With Patient Total time spent is greater than 50% in coordination of care (as documented) at patient's floor/unit and/or counseling patient: - Narrative A/P Narrative: A/P Acute constipation Abdominal pain COPD Plan continue to monitor, repeat x ray in AM make sure pt is able to tolerate po diet well, and having good BM no e/o infection, d/c abx X ray shows improvement continue miralax TID continue duonebs q6hr continue rehab. anticipate d/c over weekend to home or DVT hep sc regular diet Full code. Medical - PN: Qual - Stroke Symptom Onset Unknown: No - VTE Deep Vein Thrombosis/Pulmonary Embolism Present on Admission: No
[2018-03-09] MEDS: FAMOTIDINE 20 MG TABLET PO SCH (21:14)
[2018-03-10] MEDS: IPRATROPIUM/ALBUTEROL 3 ML AMPUL.NEB NEB SCH ×4 (02:17→19:21)
[2018-03-10] MEDS: 0.9 % SODIUM CHLORIDE 10 ML SYRINGE IV SCH ×3 (06:09→20:19)
[2018-03-10] MEDS: HEPARIN 5,000 UNIT/ML VIAL SQ SCH ×2 (09:05→20:18)
[2018-03-10] MEDS: TAMSULOSIN 0.4 MG CAPSULE PO SCH (09:05)
[2018-03-10] MEDS: POLYETHYLENE GLYCOL 3350 17 GM PACKET PO SCH ×3 (09:05→20:18)
[2018-03-10] MEDS: FAMOTIDINE 20 MG TABLET PO SCH ×2 (09:05→20:19)
--- NOTE | 2018-03-10 09:35 | XRay Report ---
CLINICAL INFORMATION: Constipation COMPARISON: 03/09/2018 FINDINGS: Mild ileus pattern again noted. Normal amount of stool present within the colon. No free air, soft tissue mass or organomegaly. IMPRESSION: Persistent mild ileus pattern. Normal amount stool in the colon. Interpreted and Authenticated by: Kemal Ornelas 03/10/18
--- NOTE | 2018-03-10 12:00 | Internal Med Progress Note ---
Medical - PN: Subj Patient information: Note initiated : 03/10/18 at 11:59 am Service Date, if different from initiated Date: [] Patient: Reginald Gonzales 87 y/o M admitted on 03/08/18 for Left Lower Abd Pain/ Constipation. Chief Complaint: [] Interval history: Mr. Gonzales is a 87 year old Male with multiple medical issues, presents to the ER yesterday 03/07/18 evening with complaints of abdominal pain, difficulty in urination and not feeling well. The patient denied having regular bowel movements, last decent BM was 2 weeks ago, on and off little stool has since come but not the usual amount. He did not endorse any stool incontinence however ED note mentions that the patient has had some stool incontinence. Also had urinary retention. CT showed massive amounts of obstipated stool and patient underwent manual disimpaction by Dr. Andrew on 03/08/18. Pt feels much better and denies abd pain now. States has voided several time urine today. RN says 3 voids and 1 soft small stool today. Says he can walk without walker. RN says he is getting stronger and ate 100% meal today. - Constitutional Vitals: Vital Signs Temp Pulse Resp BP Pulse Ox 98.6 F 62 16 155/86 95 03/10/18 11:28 03/10/18 07:32 03/10/18 11:28 03/10/18 11:28 03/10/18 11:28 Period Temp Pulse Resp BP Sys/Eduardo Pulse Ox Last 24 Hr 97.7 F-98.6 F 62-88 16-18 96-160/63-92 94-98 Intake and Output 03/09/18 03/10/18 03/10/18 21:59 05:59 13:59 Intake Total 600 / 600 150 / 150 Output Total 1275 / 1275 201 / 201 Balance 599 / 599 -1125 / -1125 -201 / -201 Weight 148 lb Intake & Output: Intake & Output 03/09/18 03/10/18 03/10/18 21:59 05:59 13:59 Intake Total 600 / 600 150 / 150 Output Total 1275 / 1275 201 / 201 Balance 599 / 599 -1125 / -1125 -201 / -201 Weight 148 lb Intake: Oral 600 / 600 150 / 150 Output: Void Amount 1275 / 1275 200 / 200 # of times incontinent of urine Other: Meal Dinner Percent of Meal Consumed 100% Stool Size Small Stool Color Brown Stool Consistency Loose # Voids 1 # Bowel Movements 1 - Respiratory Respiratory exam: Present: normal respiratory exam, CTAB. Absent: rales, wheezes - Cardiovascular Cardiovascular exam: Present: normal rate and rhythm - GI/Abdominal GI/Abdominal exam: Present: normal bowel sounds, soft. Absent: distended, rebound, rigid, tenderness - Extremities Exam Extremities exam: Absent: calf tenderness, pedal edema - Psychiatric Psychiatric exam: Present: normal affect, normal mood Medical - PN: Obj Da - Labs CBC & Chem 7: 03/07/18 13:18 03/07/18 13:18 Labs: Abnormal Lab Results 03/07/18 03/07/18 13:18 13:18 RBC 4.24 L Gran % 81.9 H Lymph % (Auto) 7.4 L Lymph # (Auto) 0.7 L [place] # (Auto) 1.0 H Glucose 107 H Calcium 8.3 L Alkaline Phosphatase 147 H Meds: Medications Acetaminophen (Tylenol) 650 mg PO Q6HP PRN PRN Reason: PAIN/FEVER > 101 Albuterol/Ipratropium (Duoneb) 3 ml NEB Q6HRT [facility] Last Admin: 03/10/18 07:26 Dose: 3 ml Docusate Sodium (Colace) 200 mg PO DAILY [facility] Famotidine (Pepcid) 20 mg PO Q12 [facility] Last Admin: 03/10/18 09:05 Dose: 20 mg Heparin Sodium (Porcine) (Heparin) 5,000 unit SQ Q12 [facility] Last Admin: 03/10/18 09:05 Dose: 5,000 unit Ondansetron HCl (Zofran Odt) 4 mg SL Q6HP PRN PRN Reason: Nausea And Vomiting Polyethylene Glycol (Miralax) 17 gm PO TID [facility] Last Admin: 03/10/18 09:05 Dose: 17 gm Sodium Chloride (Saline Flush) 10 ml IV Q8 [facility] Last Admin: 03/10/18 06:09 Dose: Not Given Tamsulosin HCl (Flomax) 0.4 mg PO QDAY [facility] Last Admin: 03/10/18 09:05 Dose: 0.4 mg Medical - PN: A/P - Time Spent With Patient Total time spent is greater than 50% in coordination of care (as documented) at patient's floor/unit and/or counseling patient: 25 - 35 minutes (1) Fecal impaction Status: Acute Assessment and plan: pt with fecal impaction now cleared cont stool softners and miralax. Once back to baseline ambulatory function will discharge likely tomorrow. Current Visit: Yes (2) Urinary retention Status: Acute Assessment and plan: resolved after stool impaction resolved. Current Visit: Yes - Narrative A/P Narrative: I reviewed initial CXR showing poor inspiratory volume. CT showed no pneumonia. looks like atelectasis as the cause. no further antibiotics as they were stopped yesterday. Medical - PN: Qual - Stroke Symptom Onset Unknown: No - VTE Deep Vein Thrombosis/Pulmonary Embolism Present on Admission: No
[2018-03-11] MEDS: IPRATROPIUM/ALBUTEROL 3 ML AMPUL.NEB NEB SCH ×4 (03:22→18:30)
[2018-03-11] MEDS: 0.9 % SODIUM CHLORIDE 10 ML SYRINGE IV SCH ×3 (06:00→20:25)
[2018-03-11] MEDS: DOCUSATE SODIUM 100 MG CAPSULE PO SCH (10:30)
[2018-03-11] MEDS: TAMSULOSIN 0.4 MG CAPSULE PO SCH (10:31)
[2018-03-11] MEDS: HEPARIN 5,000 UNIT/ML VIAL SQ SCH ×2 (10:31→20:24)
[2018-03-11] MEDS: POLYETHYLENE GLYCOL 3350 17 GM PACKET PO SCH ×3 (10:31→20:24)
[2018-03-11] MEDS: FAMOTIDINE 20 MG TABLET PO SCH ×2 (10:31→20:25)
--- NOTE | 2018-03-11 17:06 | Internal Med Progress Note ---
Medical - PN: Subj Patient information: Note initiated : 03/11/18 at 5:03 pm Service Date, if different from initiated Date: [] Patient: Reginald Gonzales 87 y/o M admitted on 03/08/18 for Left Lower Abd Pain/ Constipation. Chief Complaint: [] Interval history: today pt is accompanied by and another couple friends. He is eating well. Pt had modest stool today. has never had a colonoscopy and is reluctant due to history of epiglottis dysfunction and some concerns a surgeon expressed to him in past. Abdomen no longer hurts. Planning home with home health tomorrow. Pt is eating fruits and vegetables brought in by . They tell me he had diarrhea and treated with meds prior to the ensuing constipation. - Constitutional Vitals: Vital Signs Temp Pulse Resp BP Pulse Ox 97.3 F 67 14 149/88 95 03/11/18 15:29 03/11/18 07:15 03/11/18 15:29 03/11/18 15:29 03/11/18 15:29 Period Temp Pulse Resp BP Sys/Eduardo Pulse Ox Last 24 Hr 97.3 F-98.2 F 67-101 14-20 115-171/48-88 95-96 Intake and Output 03/11/18 03/11/18 03/11/18 05:59 13:59 21:59 Intake Total 400 / 400 370 / 370 590 / 590 Output Total 1650 / 1650 600 / 600 451 / 451 Balance -1250 / -1250 -230 / -230 139 / 139 Intake & Output: Intake & Output 03/11/18 03/11/18 03/11/18 05:59 13:59 21:59 Intake Total 400 / 400 370 / 370 590 / 590 Output Total 1650 / 1650 600 / 600 451 / 451 Balance -1250 / -1250 -230 / -230 139 / 139 Intake: Oral 400 / 400 370 / 370 590 / 590 Output: Void Amount 1650 / 1650 600 / 600 450 / 450 # of times incontinent of urine Other: Meal Breakfast Lunch Percent of Meal Consumed 100% 75% Feeding Ability Assist with Tray Set Up Stool Size Smear Moderate Moderate Stool Color Brown Brown Stool Consistency Loose Soft Soft # Voids 1 # Bowel Movements 1 General appearance: average body habitus, cooperative, no acute distress - Respiratory Respiratory exam: Present: normal respiratory exam, CTAB - Cardiovascular Cardiovascular exam: Present: normal rate and rhythm - GI/Abdominal GI/Abdominal exam: Present: normal bowel sounds, soft. Absent: rigid, tenderness - Extremities Exam Extremities exam: Absent: pedal edema - Psychiatric Psychiatric exam: Present: normal affect, normal mood - Skin Skin exam: Present: dry, warm Medical - PN: Obj Da - Labs CBC & Chem 7: 03/07/18 13:18 03/07/18 13:18 Meds: Medications Acetaminophen (Tylenol) 650 mg PO Q6HP PRN PRN Reason: PAIN/FEVER > 101 Albuterol/Ipratropium (Duoneb) 3 ml NEB Q6HRT [facility] Last Admin: 03/11/18 14:08 Dose: Not Given Docusate Sodium (Colace) 200 mg PO DAILY [facility] Last Admin: 03/11/18 10:30 Dose: 200 mg Famotidine (Pepcid) 20 mg PO Q12 [facility] Last Admin: 03/11/18 10:31 Dose: 20 mg Heparin Sodium (Porcine) (Heparin) 5,000 unit SQ Q12 [facility] Last Admin: 03/11/18 10:31 Dose: 5,000 unit Ondansetron HCl (Zofran Odt) 4 mg SL Q6HP PRN PRN Reason: Nausea And Vomiting Polyethylene Glycol (Miralax) 17 gm PO TID [facility] Last Admin: 03/11/18 16:03 Dose: 17 gm Sodium Chloride (Saline Flush) 10 ml IV Q8 [facility] Last Admin: 03/11/18 16:03 Dose: Not Given Tamsulosin HCl (Flomax) 0.4 mg PO QDAY [facility] Last Admin: 03/11/18 10:31 Dose: 0.4 mg Medical - PN: A/P - Time Spent With Patient Total time spent is greater than 50% in coordination of care (as documented) at patient's floor/unit and/or counseling patient: 25 - 35 minutes (1) Fecal impaction Status: Acute Assessment and plan: pt with fecal impaction now cleared cont stool softners and miralax. Once back to baseline ambulatory function will discharge likely tomorrow. still with some stool fullness on abdomen R side on film yesterday. Passing stool today. Current Visit: Yes (2) Urinary retention Status: Acute Assessment and plan: resolved after stool impaction resolved. Current Visit: Yes Medical - PN: Qual - Stroke Symptom Onset Unknown: No - VTE Deep Vein Thrombosis/Pulmonary Embolism Present on Admission: No
[2018-03-12] MEDS: IPRATROPIUM/ALBUTEROL 3 ML AMPUL.NEB NEB SCH ×2 (01:49→07:19)
[2018-03-12] MEDS: 0.9 % SODIUM CHLORIDE 10 ML SYRINGE IV SCH ×2 (04:51→13:43)
[2018-03-12] MEDS ORDERED: POLYETHYLENE GLYCOL 3350 17 GM PACKET PO PRN (09:26)
[2018-03-12] MEDS: TAMSULOSIN 0.4 MG CAPSULE PO SCH (09:40)
[2018-03-12] MEDS: FAMOTIDINE 20 MG TABLET PO SCH (09:40)
[2018-03-12] MEDS: DOCUSATE SODIUM 100 MG CAPSULE PO SCH (09:41)
[2018-03-12] MEDS: HEPARIN 5,000 UNIT/ML VIAL SQ SCH (09:41)
[2018-03-12] MEDS: POLYETHYLENE GLYCOL 3350 17 GM PACKET PO SCH (09:44)
[2018-03-12] MEDS ORDERED: IPRATROPIUM/ALBUTEROL 3 ML AMPUL.NEB NEB PRN (10:26)
--- NOTE | 2018-03-12 16:50 | Discharge Summary ---
Medical - DS: Prov Patient information: Note initiated : 03/12/18 at 4:45 pm Service Date, if different from initiated Date: [] Patient: Reginald Gonzales 87 y/o M admitted on 03/08/18 for Left Lower Abd Pain/ Constipation. Chief Complaint: [] Date of admission: 03/08/18 07:09 Discharge date: 03/12/18 Primary care physician: Noemi Fuller Admitting clinician: Charlee Andrew Attending physician on admission: Charlee Andrew Consults: 03/07/18 08:50 Consult to Physician [CONS] Stat Comment: Consulting Provider: Charlee Andrew Reason For Exam: Physician to Consult Attending physician on discharge: Claudy Clay Discharging clinician: Claudy Clay Medical - DS: Meds - Discharge Medications Prescriptions: Docusate Sodium [Colace] 200 mg PO DAILY #100 cap Lactobacillus [Culturelle] 1 cap PO BID #100 cap Polyethylene Glycol 3350 [Miralax] 17 gm PO DAILYP PRN #30 packet PRN Reason: Constipation Active and Home Medications: Home Medications Ferrous Sulfate [Slow Release Iron] 45 mg PO DAILY 05/25/16 [History Confirmed 03/07/18 Last Taken Unknown] Multivitamin With Nelson 3 1 cap PO DAILY 05/25/16 [History Confirmed 03/07/18 Last Taken Unknown] albuterol sulfate HFA 90 mcg/actuation aerosol inhaler 1 inh INHALATION Q6HP PRN #18 g 03/21/17 [Rx Confirmed 03/07/18 Last Taken Unknown] ipratropium-albuterol 0.5 mg-3 mg(2.5 mg base)/3 mL nebulization soln 3 ml INHALATION Q6H PRN #360 ml 04/10/17 [Rx Confirmed 03/07/18 Last Taken Unknown] tamsulosin 0.4 mg capsule 0.4 mg PO QDAY 07/06/17 [History Confirmed 03/07/18 Last Taken Unknown] testosterone cream See Label Instructions TOPICAL .apply 2 clicks #30 MDD 5mg / 0.25mg 09/21/17 [Rx Confirmed 01/09/18 Last Taken Unknown] sildenafil (antihypertensive) 20 mg tablet 20 mg PO ONCE PRN #20 tab 01/23/18 [ Rx Last Taken Unknown] Medical - DS: Hosp Hospital course: Mr. Day is a 87 year old M Discharge diagnosis: fecal impaction Secondary discharge diagnosis: obstipation urine retention due to fecal impaction Chronic dysphagia COPD Reason for admission: Fecal Impaction and Urinary Retention Pertinent studies/significant findings: huge stool amount in rectosigmoid colon Complications: none - Time Spent with Patient Total time spent providing and/or coordinating discharge services: Greater than 30 minutes Specific discharge activities: ambulate as much as possible. Increase activity and get stronger. Considier exercises in the swimming pool with life jacket initially for safety Medical - DS: Exam - Constitutional Vitals: Vital Signs Temp Pulse Pulse Pulse Resp BP BP 03/12/18 15:40 98.2 F 16 105/67 03/12/18 12:21 98.3 F 82 18 106/68 03/12/18 08:18 67 16 03/12/18 06:23 98.4 F 16 159/88 03/12/18 04:00 98.1 F 60 16 166/83 03/11/18 23:47 97.8 F 68 16 150/79 03/11/18 20:00 97.4 F 78 18 112/71 03/11/18 18:30 82 18 Pulse Ox 03/12/18 15:40 95 03/12/18 12:21 94 03/12/18 08:18 96 03/12/18 06:23 96 03/12/18 04:00 97 03/11/18 23:47 96 03/11/18 20:00 95 03/11/18 18:30 Intake and Output 03/12/18 03/12/18 03/12/18 05:59 13:59 21:59 Intake Total 425 / 425 600 / 600 240 / 240 Output Total 2099 / 2099 400 / 400 Balance -1675 / -1675 200 / 200 240 / 240 Intake: Oral 425 / 425 600 / 600 240 / 240 Output: Void Amount 2099 / 2100 400 / 400 Other: Stool Size Small Small Stool Color Brown Brown Stool Consistency Soft Loose # Voids 1 1 # Bowel Movements 1 1 General appearance: average body habitus, cooperative, no acute distress - Respiratory Respiratory exam: Present: rhonchi (few scattered rhonchi) - Cardiovascular Cardiovascular exam: Present: normal rate and rhythm - GI/Abdominal GI/Abdominal exam: Present: normal bowel sounds, soft. Absent: rebound, rigid - Extremities Exam Extremities exam: Present: pedal edema (1+) Medical - DS: Data Labs on day of discharge: Labs from last 24 hours 03/06/18 20:20 Stool Norovirus Ag Not detected - Imaging and Cardiology CT scan - abdomen Additional comments: fecal impaction on admission and bladder outlet obstruction due to fecal impaction Medical - DS: A/P - Patient/Caregiver Discharge Instructions Activity: increase activity as tolerated, resume usual activities as tolerated Diet: Regular Diet Additional Instructions: Increase oral fluids and increase activity Follow-up with primary care provider within the next 1-2 days for recheck and get established with home health You have been set up with [facility]. They will be contacting you within a few days. If they haven't contacted you in 48-72 hours, You can give them a call at [phone]. Other Amb Orders: Physical Therapy at Discharge - General Location: Determined By Patient - Problem Maintenance (1) Fecal impaction Status: Suspected Comment: continue docusate stool softner and miralax increase activity. Talk to your physician about referral for colonoscopy (2) Urinary retention Status: Resolved Comment: cont flomax. avoid constipation - Follow up Plan Follow up with: Kemal Crenshaw DO [Physician] - Disposition: Home Health Service Prognosis: Good Rehab Potential: Good Overall status at discharge: patient is progressing back to baseline Medical - DS: Qual - VTE Deep Vein Thrombosis/Pulmonary Embolism Present on Admission: No
[2018-03-12] MEDS ORDERED: LACTOBACILLUS 1 CAPSULE PO SCH (21:00)
== END 2018-03-12 19:46 | disposition home health service (06) | DRG 390 ==
LOC: MEDSUR 18:15 → ED 18:15 → MEDSUR 03-07 09:42
PROVIDERS: ADMIT Internal Medicine; ATTEND Internal Medicine

== ENCOUNTER 2019-10-13 16:32 | Observation (INO) ==
[2019-10-13] MEDS ORDERED: ONDANSETRON 4 MG/2 ML VIAL IV ONE (17:09)
[2019-10-13 17:19] LABS: POC Blood Urea Nitrogen 41 mg/dl (8-23); POC CO2 27 mmol/L (22-30); POC Calcium, Ionized 1.07 mmol/L (1.16-1.32); POC Chloride 104 mmol/L (96-108); POC Glucose, Random 103 mg/dL (70-105); POC Potassium 4.4 mmol/L (3.3-5.1); POC Sodium 138 mmol/L (133-145)
[2019-10-13] MEDS: HYDROmorphone 2 MG/ML VIAL IV PRN ×2 (17:29→17:53)
[2019-10-13 18:10] LABS: Basophils # (Auto) 0.03 K/mcL (0.00-0.30); Basophils % (Auto) 0.2 % (0.0-2.0); Eosinophils # (Auto) 0.01 K/mcL (0.00-0.70); Eosinophils % (Auto) 0.1 % (0.0-7.0); Granulocytes % (Auto) 75.8 % (38.0-78.0); Hematocrit 42.9 % (40.1-51.0); Hemoglobin 13.8 g/dL (13.7-17.5); Lymphocytes # (Auto) 1.08 K/mcL (1.50-4.80); Lymphocytes % (Auto) 8.8 % (15.5-49.0); Mean Cell Volume 102.4 fL (80.0-100.0); Mean Corpuscular HGB Conc 32.2 g/dL (31.0-36.0); Mean Platelet Volume 9.7 fL (7.4-10.4); Monocytes # (Auto) 1.85 K/mcL (0.10-0.90); Monocytes % (Auto) 15.1 % (1.0-12.0); RBC 4.19 M/mcL (4.63-6.08); Red Cell Distribution Width 13.2 % (11.5-14.5); WBC 12.3 K/mcL (4.50-11.00)
[2019-10-13 18:14] LABS: Platelet Count 251 K/mcL (140-440)
[2019-10-13 18:31] LABS: Chloride 102 mmol/L (96-108)
[2019-10-13 18:33] LABS: ALT/SGPT 78 U/l (0-40); AST/SGOT 38 U/l (0-37); Albumin 3.4 gm/dL (3.2-5.2); Alkaline Phosphatase 250 U/L (39-117); Bilirubin,Total 0.4 mg/dL (0.0-1.0); Blood Urea Nitrogen 37 mg/dl (8-23); Calcium 8.9 mg/dl (8.6-10.4); Carbon Dioxide 21 mmol/L (22-30); Globulin 3.3 gm/dL (2.2-3.7); Glomerular Filtration Rate 60; Glucose 99 mg/dL (70-105)
--- NOTE | 2019-10-13 20:14 | Emergency Department Note ---
Neuro HPI - General Chief Complaint: Neuro Symptoms/Deficit Stated Complaint: Back pain Time Seen by Provider: 10/13/19 16:46 Source: patient, EMS Mode of arrival: ambulatory Limitations: no limitations - History of Present Illness HPI Narrative: 89-year-old male presents with back pain. states he is altered LOC. States he has not been diagnosed with dementia however he does have hydrocephalus and a shunt that was placed back in August by Dr. Medina. States that he is technically has not been diagnosed with dementia but she thinks he continues to get worse. She then states that he is worse due to pain medication that they gave him for his back recently and the only thing that appears to be new is Celebrex. She states any kind admit pain medication makes him a little crazy. She then goes on to state that they were here on Monday for an MRI of his back and it did not get done because according to her there was no lifting help an MRI. She states he took his medication that was prescribed prior to the MRI and that because there was not a low enough lifting help to put him on a slider board and move them over they did not do the MRI. Unfortunately MRI is not here and this cannot be confirmed at this time. According to notes he needed further sedation which was not possible and so had to be rescheduled. She is extremely frustrated with this. She states he fell again this morning not all the way to the ground but can hit his back and has an abrasion to his T- spine area from pain is back on the toilet. States she just absolutely cannot care for him at home even with home health. The patient himself does complain of back pain on arrival but has no other complaints. After his stay here on Monday the did mention she wanted him to be admitted back to the alf at [facility]. She was told to discuss this with her primary care provider. She has not been able to get into the [facility] clinic which is her new primary care provider. States her primary care provider who is here, Dr. Crenshaw fired her and she is still very upset about that and does not want to talk about it "because they are very nice people but were told they are too difficult". He has also been in other nursing homes and has been discharged and cannot go back for the same reasons. States she wants him to go back to procedure if they will take him but she doubts they will. She did not elaborate. - Related Data Home Medications: Home Medications Medication Instructions Recorded Confirmed Ferrous Sulfate [Slow Release Iron] 45 mg PO DAILY 05/25/16 07/15/19 Multivitamin With Welsh 3 1 cap PO DAILY 05/25/16 07/15/19 Previous Rx's Medication Instructions Recorded albuterol sulfate 90 mcg/actuation 1 inh INHALATION Q6HP PRN #18 g 03/21/17 aerosol inhaler sildenafil (pulm.hypertension) 20 20 mg PO ONCE PRN #20 tab 01/23/18 mg tablet Acetaminophen [Tylenol] 650 mg PO Q6HP PRN tab 03/12/18 Docusate Sodium [Colace] 200 mg PO DAILY #100 cap 03/12/18 Lactobacillus [Culturelle] 1 cap PO BID #100 cap 03/12/18 Ondansetron [Zofran ODT] 4 mg SL Q6HP PRN tab 03/12/18 Polyethylene Glycol 3350 [Miralax] 17 gm PO DAILYP PRN #30 packet 03/12/18 Tamsulosin [Flomax] 0.4 mg PO QDAY #0 cap 03/12/18 testosterone cream See Rx Instructions TOPICAL .apply 07/25/18 2 clicks #30 MDD 5mg /0.25mg rwxzjqeisefhwzu-ltwttmwergdyfue-AM 10 ml PO Q6H PRN #120 ml 03/01/19 2 mg-30 mg-10 mg/5 mL oral syrup fluticasone propionate 50 2 spray INTRANASAL QDAY #16 g 03/01/19 mcg/actuation nasal spray,suspension prednisone 20 mg tablet 20 mg PO BID #10 tab 03/01/19 Toilet Safety Frame #1 ea 05/03/19 walker See Dose Instructions .ROUTE 05/03/19 .MEDSUPPLY #1 each 4 Wheeled Walker #1 ea 05/09/19 CPAP & Supplies #1 ea 06/18/19 budesonide-formoterol HFA 160 2 puff INHALATION BID #10.2 g 07/15/19 mcg-4.5 mcg/actuation aerosol inhaler tiotropium bromide 1.25 2 puff INHALATION QDAY #4 g 07/15/19 mcg/actuation mist for inhalation Allergies/Adverse Reactions: Allergies Allergy/AdvReac Type Severity Reaction Status Date / Time No Known Drug Allergies Allergy Verified 10/13/19 16:41 Review of Systems All systems ED: reviewed and negative except as stated. Past Medical History - Past Medical History [facility] Narrative: Medical History (Last Reviewed 06/05/19 @ 16:38 by Kemal Crenshaw DO) Solitary lung nodule (Chronic) Dyspnea on exertion (Chronic) Diplopia (Chronic) Upper respiratory infection (Acute) Asthma exacerbation (Acute) COPD (chronic obstructive pulmonary disease) (Chronic) Hypoxemia (Chronic) Dysphagia (Chronic) Cough (Acute) Osteopenia determined by x-ray (Chronic) Kidney stones (Chronic) Community acquired bacterial pneumonia (Acute) Rib pain on right side (Acute) History of COPD (Acute) Aspiration pneumonia (Acute 05/27/16) Past Surgical History (Last Reviewed 06/05/19 @ 16:38 by Kemal Crenshaw DO) History of hernia surgery (Chronic) Medical history: Reports: asthma, COPD, kidney stones, renal disease, other Surgical history ED: Reports: other - Social History smoking status: Never smoker Alcohol use: Reports: None Drug use: Reports: none Physical Exam Limitations: no limitations General appearance: alert (Alert and talkative however obviously confused at times. He does know his in response to her better than anybody.) Head: atraumatic, normocephalic, normal inspection Eye: Present: normal appearance. Absent: conjunctival injection ENT: Present: mucous membranes moist Chest: Present: symmetric chest wall rise Respiratory: Present: other (Diminished in the bases bilaterally otherwise clear throughout). Absent: respiratory distress, rales/crackles, accessory muscle use Cardiovascular: Present: regular rate, normal heart sounds Extremities: Present: normal inspection Back: Present: other (T7-T9 area with a 1 inch x 3 inch very superficial abrasion with no active bleeding. No swelling or ecchymosis. Mildly tender. Cannot reproduce tenderness otherwise with palpation but has significant pain with any movement of T-spine.) Neurological: Present: alert. Absent: oriented X3, motor sensory deficit Skin: Present: warm, dry, normal color Course Course Narrative: After 0.5 mg of Dilaudid patient was very sleepy but still hurting. He did get a second dose. After this he did not seem to have much pain and was very sleepy although arousable. We are able to roll him and examine him better after some pain medication. His labs are unremarkable, head CT is unremarkable with no acute changes. He does have moderate stable hydrocephalus which is normal for him and the shunt as well according to the report that was called to us. Vital signs have remained stable throughout. She states she is absolutely not taking him home and that he will be staying here or we will be placing him somewhere because she cannot care for him. supervisor word processing did come down to speak with the patient to sign an ABN form for possible financial Responsibility due to the fact that he does not meet admission criteria. At 2014 I did speak with the hospitalist, Dr. Hamilton who agrees to accept this patient and asked me to put in some holding orders for this patient. Vital Signs Temperature 97.7 F 10/13/19 16:34 Pulse Rate 79 10/13/19 16:34 Respiratory Rate 20 10/13/19 16:34 Blood Pressure 131/86 10/13/19 16:34 Pulse Oximetry (%) 99 10/13/19 16:34 Temperature 97.7 F 10/13/19 16:34 Pulse Rate 78 10/13/19 19:31 Respiratory Rate 16 10/13/19 20:01 Blood Pressure 142/80 10/13/19 20:01 Pulse Oximetry (%) 94 10/13/19 19:31 Neuro Symptoms/Deficit - Lab Data Lab results reviewed: Yes I reviewed the patient's lab results. Result diagrams: 10/13/19 17:08 10/13/19 17:08 Lab Results 10/13/19 10/13/19 10/13/19 Range/Units 17:08 17:08 17:08 WBC 12.3 H (4.50-11.00) K/mcL RBC 4.19 L (4.63-6.08) M/mcL Hgb 13.8 (13.7-17.5) g/dL Hct 42.9 (40.1-51.0) % POC Hct 40.0 L (41.0-55.0) % MCV 102.4 H (80.0-100.0) fL MCH 32.9 (26.0-34.0) pg MCHC 32.2 (31.0-36.0) g/dL RDW 13.2 (11.5-14.5) % Plt Count 251 (140-440) K/mcL MPV 9.7 (7.4-10.4) fL Gran % 75.8 (38.0-78.0) % Lymph % (Auto) 8.8 L (15.5-49.0) % [place] % (Auto) 15.1 H (1.0-12.0) % Eos % (Auto) 0.1 (0.0-7.0) % Baso % (Auto) 0.2 (0.0-2.0) % Gran # 9.29 H (1.80-8.00) K/mcL Lymph # (Auto) 1.08 L (1.50-4.80) K/mcL [place] # (Auto) 1.85 H (0.10-0.90) K/mcL Eos # (Auto) 0.01 (0.00-0.70) K/mcL Baso # (Auto) 0.03 (0.00-0.30) K/mcL POC Sodium 138 (133-145) mmol/L Sodium 137 (133-145) mmol/L POC Potassium 4.4 (3.3-5.1) mmol/L Potassium 4.4 (3.3-5.1) mmol/L POC Chloride 104 (96-108) mmol/L Chloride 102 (96-108) mmol/L Carbon Dioxide 21 L (22-30) mmol/L POC Total CO2 27 (22-30) mmol/L Anion Gap 14.0 (8-16) POC BUN 41 H (8-23) mg/dl BUN 37 H (8-23) mg/dl Creatinine 1.1 (0.7-1.2) mg/dl POC Creatinine 1.0 (0.7-1.2) mg/dl GFR Calculation 60 Glucose 99 (70-105) mg/dL POC Glucose 103 (70-105) mg/dL Calcium 8.9 (8.6-10.4) mg/dl POC WB Ioniz Calcium 1.07 L (1.16-1.32) mmol/L Total Bilirubin 0.4 (0.0-1.0) mg/dL AST 38 H (0-37) U/l ALT 78 H (0-40) U/l Alkaline Phosphatase 250 H (39-117) U/L Troponin T < 0.01 (0-0.03) ng/ml Total Protein 6.7 (5.9-8.4) gm/dL Albumin 3.4 (3.2-5.2) gm/dL Globulin 3.3 (2.2-3.7) gm/dL Albumin/Globulin Ratio 1.0 (1.0-2.3) - Radiology Data Radiology results reviewed: Yes I reviewed the patient's radiology results. Disposition Pt seen by PEDIATRIC ALLERGIST/PA only: Yes Clinical Impression: Recurrent falls, Back pain, Confusion Disposition: Xfer As Outpt/Obs ([facility]) Condition: Fair Referrals: Regina King ARNP [Primary Care Provider] - Time of Disposition: 20:24
[2019-10-13] MEDS ORDERED: ACETAMINOPHEN 325 MG TABLET PO PRN (20:28)
[2019-10-13] MEDS ORDERED: HYDROmorphone 2 MG/ML VIAL IV PRN (20:28)
[2019-10-13] MEDS ORDERED: ONDANSETRON 4 MG/2 ML VIAL IV PRN (20:28)
--- NOTE | 2019-10-13 20:30 | XRay Report ---
HISTORY: Fell with left rib and back injury FINDINGS: There are contour deformities due to old healed fractures posteriorly in the left sixth seventh and eighth ribs. These are unchanged from 07/16/19. Acute fracture is present laterally in the right seventh rib. Adjacent to this there is a very small pleural effusion and a new band of discoid atelectasis at the right lung base. No pneumothorax is present. The right diaphragm is mild to moderately elevated. This is a chronic finding. The heart size is normal. The aorta is tortuous. The shunt catheter extending across right chest wall from the neck to the abdomen. IMPRESSION: New fracture laterally in the right seventh rib possibly the sixth rib is well Interpreted and Authenticated by: Ramon Mendosa 10/13/19
--- NOTE | 2019-10-13 20:33 | Cat Scan Report ---
History: Altered mental status TECHNIQUE: The brain was imaged without contrast at 2.5 mm intervals. Radiation exposure was limited using dose reduction technology. FINDINGS: There is moderate dilatation of the lateral ventricles with mild dilatation of third and fourth ventricles. A ventricular peritoneal shunt catheter has been inserted through a magdiel hole in the right frontal bone. The catheter extends across the frontal horn right lateral ventricle to the left lateral ventricle. The tip is near the left foramen of Escalante. The catheter is new since a prior brain CT done on 04/11/19. The hydrocephalus has remained stable. There is a small zone of gliosis forming in the brain parenchyma surrounding the catheter is in the frontal lobe. No transependymal reabsorption of CSF is present. Patient has underlying mild to moderate generalized atrophy. There is no evidence of an infarct or hemorrhage. No abnormal extra-axial fluid collection is present. Mild generalized white matter disease is present above the tentorium consistent with ischemia or degeneration. Bone windows show no skull fracture. There is a mucous retention cyst laterally in the left maxillary sinus and mild mucosal thickening along the [place] of a few ethmoid air cells. IMPRESSION: Stable hydrocephalus and well-positioned shunt catheter. No acute abnormality Sunshine Durán was called with the results Interpreted and Authenticated by: Ramon Mendosa 10/13/19
[2019-10-14] MEDS ORDERED: ACETAMINOPHEN 1,000 MG/100 ML BOTTLE IV ONE (02:09)
[2019-10-14] MEDS ORDERED: IPRATROPIUM/ALBUTEROL 3 ML AMPUL.NEB NEB ONE (02:11)
[2019-10-14] MEDS: ACETAMINOPHEN 650 MG/65 ML BOTTLE IV PRN ×3 (02:14→19:01)
[2019-10-14] MEDS: IPRATROPIUM/ALBUTEROL 3 ML AMPUL.NEB NEB PRN ×3 (02:23→18:17)
[2019-10-14] MEDS: HYDROmorphone 2 MG/ML VIAL IV PRN ×3 (07:17→19:48)
--- NOTE | 2019-10-14 07:54 | Internal Med History&Physical ---
Medical - H&P: HPI Patient information: Note initiated : 10/14/19 at 7:53 am Service Date, if different from initiated Date: [] Patient: Reginald Gonzales 89 y/o M admitted on 10/13/19 for Back pain. Chief Complaint: [] Chief complaint: Intractable back pain/falls History of present illness: Mr. Gonzales is a 89 year old M with a history of obstructive hydrocephalus/dementia and COPD who presents to the ER along with his with worsening weakness along with recurrent falls. Patient symptoms are associated with increasing lower back pain which is progressed over the last 2 months. Patient has been evaluated at the pain clinic and has not responded to treatment. He was recommended MRI for evaluation of vertebroplasty which is scheduled at [place] on . However patient is sustained additional couple of falls in the last 48 hours and his is extremely frustrated being unable to take care of him due to advanced age and physical limitation. She brings him to the ER for evaluation and management of pain. Initial work-up was essentially unremarkable except for white count 12.3 and sixth and seventh rib fracture without evidence of pneumo or hemothorax. Due to profoundly debilitated state and inability of family to take care of patient hospital service was consulted for admission. At evaluation patient is unable to provide any history. He suffers from baseline dementia. He is under the effect of 2 doses of Dilaudid and was barely able to open his eyes. Most of the history was obtained from review of medical records/ER physician. Per records no recent fever, headache, nausea, diarrhea or abdominal pain. Review of systems A 10 point review system was performed and is negative except for ones cussed above Medical - H&P: PMH Medical history: Solitary lung nodule (Chronic) Dyspnea on exertion (Chronic) Diplopia (Chronic) Upper respiratory infection (Acute) Asthma exacerbation (Acute) COPD (chronic obstructive pulmonary disease) (Chronic) Hypoxemia (Chronic) Dysphagia (Chronic) Cough (Acute) Osteopenia determined by x-ray (Chronic) Kidney stones (Chronic) Community acquired bacterial pneumonia (Acute) Rib pain on right side (Acute) History of COPD (Acute) Aspiration pneumonia (Acute 05/27/16) Past Surgical History (Last Reviewed 06/05/19 @ 16:38 by Kemal Crenshaw DO) History of hernia surgery (Chronic) Medical history: Reports: asthma, COPD, kidney stones, renal disease, other Surgical history ED: Reports: other - Social History smoking status: Never smoker Alcohol use: Reports: None Drug use: Reports: none Medical - H&P: Meds Home Medications Medication Instructions Recorded Confirmed Type Ferrous Sulfate [Slow Release Iron] 45 mg PO DAILY 05/25/16 10/13/19 History Multivitamin With [place] 3 1 cap PO DAILY 05/25/16 10/13/19 History albuterol sulfate 90 mcg/actuation 1 inh INHALATION Q6HP PRN #18 g 03/21/17 10/13/19 Rx aerosol inhaler Acetaminophen [Tylenol] 650 mg PO Q6HP PRN tab 03/12/18 10/13/19 Rx Docusate Sodium [Colace] 200 mg PO DAILY #100 cap 03/12/18 10/13/19 Rx Lactobacillus [Culturelle] 1 cap PO BID #100 cap 03/12/18 10/13/19 Rx Ondansetron [Zofran ODT] 4 mg SL Q6HP PRN tab 03/12/18 10/13/19 Rx Polyethylene Glycol 3350 [Miralax] 17 gm PO DAILYP PRN #30 packet 03/12/18 10/13/19 Rx Tamsulosin [Flomax] 0.4 mg PO QDAY #0 cap 03/12/18 10/13/19 Rx testosterone cream See Rx Instructions TOPICAL .apply 07/25/18 10/13/19 Rx 2 clicks #30 MDD 5mg /0.25mg fluticasone propionate 50 2 spray INTRANASAL QDAY #16 g 03/01/19 10/13/19 Rx mcg/actuation nasal spray,suspension Toilet Safety Frame #1 ea 05/03/19 07/15/19 Rx walker See Dose Instructions .ROUTE 05/03/19 07/15/19 Rx .MEDSUPPLY #1 each 4 Wheeled Walker #1 ea 05/09/19 07/15/19 Rx CPAP & Supplies #1 ea 06/18/19 07/15/19 Rx budesonide-formoterol HFA 160 2 puff INHALATION BID #10.2 g 07/15/19 10/13/19 Rx mcg-4.5 mcg/actuation aerosol inhaler tiotropium bromide 1.25 2 puff INHALATION QDAY #4 g 07/15/19 10/13/19 Rx mcg/actuation mist for inhalation Allergies Allergy/AdvReac Type Severity Reaction Status Date / Time No Known Drug Allergies Allergy Verified 10/13/19 16:41 Medical - H&P: Exam - Constitutional Vitals: Temp Pulse Resp BP Pulse Ox 98.2 F 76 16 131/68 98 10/14/19 07:40 10/14/19 07:40 10/14/19 07:40 10/14/19 07:40 10/14/19 07:40 Exam: Resting and sedated Nonlabored breathing Head normocephalic Oral cavity dry No ear nose discharge Neck lymphadenopathy S1-S2 regular rhythm ESM grade 1 Diminished breath sounds bases Abdomen soft nontender nondistended Lower extremity rojas bruising bilaterally noted No like cyanosis clubbing or joint swelling or lymphedema Psych sedated but no anxiety agitation Neuro could not performed Medical - H&P: Reslt - Labs CBC & Chem 7: 10/13/19 17:08 10/13/19 17:08 Labs: Short CBC 10/13/19 Range/Units 17:08 WBC 12.3 H (4.50-11.00) K/mcL Hgb 13.8 (13.7-17.5) g/dL Hct 42.9 (40.1-51.0) % Plt Count 251 (140-440) K/mcL BMP 10/13/19 17:08 Sodium 137 Potassium 4.4 Chloride 102 Carbon Dioxide 21 L BUN 37 H Creatinine 1.1 Glucose 99 Calcium 8.9 Cardiac Enzymes 10/13/19 Range/Units 17:08 Troponin T < 0.01 (0-0.03) ng/ml Liver Function 10/13/19 Range/Units 17:08 Total Bilirubin 0.4 (0.0-1.0) mg/dL AST 38 H (0-37) U/l ALT 78 H (0-40) U/l Alkaline Phosphatase 250 H (39-117) U/L Albumin 3.4 (3.2-5.2) gm/dL Medical - H&P: A/P (1) Recurrent falls Current visit: Yes Status: Acute * Recurrent falls due to weakness PT OT/fall precautions * Intractable back pain responded well to opioids. Spine imaging * Advanced dementia/self-care deficits-Case management coordinate transfer to care facility * History of obstructive hydrocephalus status post shunting by Dr. Medina neurosurgery * Sixth and seventh rib fractures no evidence of hemopneumothorax. Continue pain management * History of COPD continue bronchodilators * CHIP * BPH continue tamsulosin * Full code * Prophylaxis heparin Plan * Observation admit * Pain management * Spine imaging * Aggressive PT OT * Case management coordinate transfer to facility * Prior medical condition management as above Medical - H&P: Qual - Stroke Symptom Onset Unknown: No - VTE Deep Vein Thrombosis/Pulmonary Embolism Present on Admission: No
[2019-10-14] MEDS ORDERED: traMADol 50 MG TABLET PO PRN (08:28)
[2019-10-14] MEDS ORDERED: POTASSIUM CHLORIDE 20 MEQ PACKET PO PRN (08:28)
[2019-10-14] MEDS ORDERED: BISACODYL 10 MG SUPP.RECT PR PRN (08:28)
[2019-10-14] MEDS ORDERED: MELATONIN 3 MG TABLET PO PRN (08:28)
[2019-10-14] MEDS ORDERED: HYDROcodone/APAP 5/325MG TABLET PO PRN (08:28)
[2019-10-14] MEDS ORDERED: MAGNESIUM SULFATE 2 GM/50 ML BAG IV PRN (08:28)
[2019-10-14] MEDS ORDERED: POLYETHYLENE GLYCOL 3350 17 GM PACKET PO PRN (08:28)
[2019-10-14] MEDS ORDERED: ACETAMINOPHEN 325 MG TABLET PO PRN (08:28)
[2019-10-14] MEDS ORDERED: ONDANSETRON 4 MG ODT TABLET SL PRN ×2 (08:28→08:29)
[2019-10-14] MEDS ORDERED: ALBUTEROL SULFATE 1 PUFF INHALER INH PRN (08:29)
[2019-10-14] MEDS ORDERED: DOCUSATE SODIUM 100 MG CAPSULE PO SCH (09:00)
[2019-10-14] MEDS ORDERED: LORazepam 2 MG/ML VIAL IV ONE (09:01)
[2019-10-14] MEDS: LACTOBACILLUS 1 CAPSULE PO SCH ×2 (09:24→22:51)
[2019-10-14] MEDS: FOLIC ACID 1 MG TABLET PO SCH (09:24)
[2019-10-14] MEDS: DOCUSATE SODIUM 100 MG CAPSULE PO SCH ×2 (09:24→22:51)
[2019-10-14] MEDS: FLUTICASONE PROPIONATE SPRAY.NAS NS SCH (09:24)
[2019-10-14] MEDS: TAMSULOSIN 0.4 MG CAPSULE PO SCH (09:24)
[2019-10-14] MEDS: Budesonide/Formoterol Fumarate [Symbicort] 160-4.5 mcg Inhaler INH SCH ×2 (09:25→22:51)
[2019-10-14] MEDS: MULTIVIT,THER IRON,CA,FA & MIN 1 TABLET PO SCH (09:25)
[2019-10-14] MEDS: CYANOCOBALAMIN (VITAMIN B-12) 500 MCG TABLET PO SCH ×2 (09:25→22:51)
[2019-10-14] MEDS: HEPARIN 5,000 UNIT/ML VIAL SQ SCH ×2 (09:25→22:51)
[2019-10-14] MEDS: THIAMINE 100 MG TABLET PO SCH (09:26)
[2019-10-14] MEDS ORDERED: 0.9 % SODIUM CHLORIDE 1,000 ML IV SCH (12:15)
[2019-10-14] MEDS: 0.9 % SODIUM CHLORIDE 10 ML SYRINGE IV SCH ×2 (13:28→22:51)
--- NOTE | 2019-10-14 15:37 | Internal Med Progress Note ---
Medical - PN: Subj Patient information: Note initiated : 10/14/19 at 3:35 pm Service Date, if different from initiated Date: [] Patient: Reginald Gonzales 89 y/o M admitted on 10/13/19 for Back pain. Chief Complaint: [] Interval history: Mr. Gonzales is a 89 year old M with a history of obstructive hydrocephalus/dementia and COPD who presents to the ER along with his with worsening weakness along with recurrent falls. Patient symptoms are associated with increasing lower back pain which is progressed over the last 2 months. Patient has been evaluated at the pain clinic and has not responded to treatment. He was recommended MRI for evaluation of vertebroplasty which is scheduled at [place] on . However patient is sustained additional couple of falls in the last 48 hours and his is extremely frustrated being unable to take care of him due to advanced age and physical limitation. She brings him to the ER for evaluation and management of pain. Initial work-up was essentially unremarkable except for white count 12.3 and sixth and seventh rib fracture without evidence of pneumo or hemothorax. Due to profoundly debilitated state and inability of family to take care of patient hospital service was consulted for admission. At evaluation patient is unable to provide any history. He suffers from baseline dementia. He is under the effect of 2 doses of Dilaudid and was barely able to open his eyes. Most of the history was obtained from review of medical records/ER physician. Per records no recent fever, headache, nausea, diarrhea or abdominal pain. 10/14-patient currently on opioids. extremely concerned about persistent pain however patient does not seem to be in discomfort and received only 2 doses of opioids since last night. Transitioning to oral opioids. ST [facility] today. MRI scheduled at [facility] on . Attempt physical therapy today. - Constitutional Vitals: Vital Signs Temp Pulse Resp BP Pulse Ox 98.2 F 78 18 117/58 94 10/14/19 12:00 10/14/19 12:00 10/14/19 12:00 10/14/19 12:10/14/19 12:00 Period Temp Pulse Resp BP Sys/Eduardo Pulse Ox Last 24 Hr 97.7 F-98.8 F 74-88 11-20 117-159/58-108 89-99 Intake and Output 10/14/19 10/14/19 10/14/19 05:59 13:59 21:59 Intake Total 65 Output Total 201 Balance -136 Weight 150 lb Intake & Output: Intake & Output 10/14/19 10/14/19 10/14/19 05:59 13:59 21:59 Intake Total 65 Output Total 201 Balance -136 Weight 150 lb Intake: IV 65 Oral 0 Output: Urine Catheter Amount 75 Void Amount 125 # of times incontinent of urine 1 Other: Urine Appearance Clear Clear Straight Clear Urine Color Pale Straw Straight Straw Urine Odor Normal Straight Normal # Voids 1 General appearance: no acute distress Exam: Resting comfortably Nonlabored breathing No anxiety Intermittently awake Medical - PN: Obj Da - Labs CBC & Chem 7: 10/13/19 17:08 10/13/19 17:08 Labs: Abnormal Lab Results 10/13/19 10/13/19 17:08 17:08 WBC 12.3 H RBC 4.19 L POC Hct 40.0 L MCV 102.4 H Lymph % (Auto) 8.8 L Sharkey % (Auto) 15.1 H Gran # 9.29 H Lymph # (Auto) 1.08 L Sharkey # (Auto) 1.85 H Carbon Dioxide 21 L POC BUN 41 H BUN 37 H POC WB Ioniz Calcium 1.07 L AST 38 H ALT 78 H Alkaline Phosphatase 250 H Meds: Medications Acetaminophen (Tylenol) 650 mg PO Q4-6HP PRN; Protocol PRN Reason: Per Pain Protocol/Fever > 101 Hydrocodone Bitart/Acetaminophen ([place] 5/325mg) 0 tab PO Q4HP PRN; Protocol PRN Reason: Per Pain Protocol Albuterol Sulfate (Ventolin) 1 puff INH Q6HP PRN PRN Reason: Dyspnea Albuterol/Ipratropium (Duoneb) 3 ml NEB Q4HP PRN PRN Reason: Shortness Of Breath Last Admin: 10/14/19 10:28 Dose: 3 ml Documented by: Bisacodyl (Dulcolax) 10 mg TN Q2-3DAYS PRN PRN Reason: Constipation Cyanocobalamin (Vitamin B-12) 1,000 mcg PO BID [facility] Stop: 10/18/19 21:01 Last Admin: 10/14/19 09:25 Dose: Not Given Documented by: Docusate Sodium (Colace) 100 mg PO BID [facility] Last Admin: 10/14/19 09:24 Dose: Not Given Documented by: Ferrous Sulfate (Ferrous Sulfate) 325 mg PO QAC [facility] Fluticasone Propionate (Flonase) 2 spray NS QDAY [facility] Last Admin: 10/14/19 09:24 Dose: Not Given Documented by: Folic Acid (Folic Acid) 1 mg PO DAILY [facility] Last Admin: 10/14/19 09:24 Dose: Not Given Documented by: Heparin Sodium (Porcine) (Heparin) 5,000 unit SQ Q12 [facility] Last Admin: 10/14/19 09:25 Dose: 5,000 unit Documented by: Hydromorphone HCl (Dilaudid) 0 mg IV Q4HP PRN; Protocol PRN Reason: Per Pain Protocol Last Admin: 10/14/19 12:32 Dose: 0.5 ml Documented by: Acetaminophen (Ofirmev) 650 mg in 65 mls @ 130 mls/hr IV Q6HP PRN; Protocol PRN Reason: PAIN/FEVER > 101 Last Admin: 10/14/19 09:19 Dose: 130 mls/hr Documented by: Magnesium Sulfate (Magnesium Sulfate) 2 gm in 50 mls @ 50 mls/hr IV UD PRN PRN Reason: MG = or < 1.7 Sodium Chloride (Sodium Chloride 0.9%) 1,000 mls @ 75 mls/hr IV .[id number] [facility] Stop: 10/15/19 01:34 Last Admin: 10/14/19 12:33 Dose: 75 mls/hr Documented by: Iron Carb/Multivit/[place]/Folic Acid (Multivitamin W/Minerals) 1 tab PO DAILY [facility] Last Admin: 10/14/19 09:25 Dose: Not Given Documented by: Lactobacillus Rhamnosus (Culturelle) 1 cap PO BID [facility] Last Admin: 10/14/19 09:24 Dose: Not Given Documented by: Melatonin (Melatonin 3mg Tablet) 3 mg PO HSP PRN PRN Reason: Insomnia Ondansetron HCl (Zofran) 4 mg IV Q4-6HP PRN PRN Reason: Nausea And Vomiting Ondansetron HCl (Zofran Odt) 4 mg SL Q4-6HP PRN; Protocol PRN Reason: Nausea And Vomiting Budesonide/Formoterol Fumarate [Symbicort] 160-4.5 Mcg Inhaler 2 dose INH BID [facility] Last Admin: 10/14/19 09:25 Dose: Not Given Documented by: Tiotropium [place] [ Spiriva Respimat] Inhaler 2 dose INH QDAY [facility] Last Admin: 10/14/19 09:25 Dose: Not Given Documented by: Polyethylene Glycol (Miralax) 17 gm PO DAILYP PRN PRN Reason: Constipation Potassium Chloride (Klor-Con) 40 meq PO DAILYP PRN PRN Reason: K+ < 3.5 Senna/Docusate Sodium (Senna Plus Tablet) 1 tab PO [facility] Sodium Chloride (Saline Flush) 10 ml IV Q8 [facility] Last Admin: 10/14/19 13:28 Dose: Not Given Documented by: Tamsulosin HCl (Flomax) 0.4 mg PO QDAY [facility] Last Admin: 10/14/19 09:24 Dose: Not Given Documented by: Thiamine HCl (Vitamin B1) 100 mg PO DAILY [facility] Last Admin: 10/14/19 09:26 Dose: Not Given Documented by: Tramadol HCl (Ultram) 50 mg PO Q4-6HP PRN; Protocol PRN Reason: Per Pain Protocol Medical - PN: A/P - Time Spent With Patient Total time spent is greater than 50% in coordination of care (as documented) at patient's floor/unit and/or counseling patient: 25 - 35 minutes (Time spent on care coordination/discussion with physicians and goals of care in excess of 65 minutes) (1) Recurrent falls Status: Acute Assessment and plan: * Recurrent falls due to weakness PT OT/fall precautions * Intractable back pain responded well to opioids. Not amenable to MRI due to [employer]ACH[employer] shunt requiring turned off . Will undergo MRI at [place] on . CT spine today * Advanced dementia/self-care deficits-Case management coordinating SNF transfer * History of obstructive hydrocephalus status post [employer]ACH[employer] shunting by Dr. Medina neurosurgery * Sixth and seventh rib fractures no evidence of hemopneumothorax. Ongoing pain management * History of COPD continue bronchodilators * CHIP * BPH continue tamsulosin * Full code * Prophylaxis heparin Plan * Transition to oral pain medications * CT spine * Continue PT OT/nutrition support * Case management coordinate transfer to facility * Prior medical condition management as above Current Visit: Yes Medical - PN: Qual - Stroke Symptom Onset Unknown: No - VTE Deep Vein Thrombosis/Pulmonary Embolism Present on Admission: No
--- NOTE | 2019-10-14 18:26 | Cat Scan Report ---
CLINICAL INFORMATION: Back pain COMPARISON: Axial, sagittal and coronal reformatted images of lumbar spine from abdomen and pelvic CT 1.5 years ago 03/06/2018 TECHNIQUE: 0.625 mm helical slices were obtained from the mid T12 through mid S2 vertebral bodies. Following reconstruction, 2.5 mm coronal, sagittal, and axial reformations (angle to the disc spaces) were processed. Exam was reviewed at bone and soft tissue windows.The exam was performed using radiation dose optimization techniques including, but not limited to, automated exposure control, adjustment of the mA and/or kV according to patient size and use of iterative reconstruction technique. FINDINGS: Mild chronic leftward curve of lower thoracic and upper lumbar spine with mild chronic right lateral T11-T12 and minimal chronic left L1, L2 and L3 compression fracture unchanged. There is no acute fracture. Soft tissues are normal. At T11-T12, mild broad calcified disc spur complex results in mild thecal sac effacement and mild right IV foraminal narrowing. At T12-L1, mild broad disc spur complex with left-sided asymmetry results in moderate bilateral IV foraminal narrowing At L1-2, moderate broad disc protrusion and facet arthropathy result in mild bilateral IV foraminal narrowing. At L2-3, moderate broad disc protrusion facet arthropathy ligament flavum hypertrophy results in moderate central canal, moderate left and moderate right IV foraminal narrowing. At L3-4, large broad disc protrusion ligamenta flavum hypertrophy results in severe central canal and left lateral recess IV foraminal narrowing. At L4-5, moderate broad disc protrusion with left-sided asymmetry facet arthropathy result in moderate left and mild right IV foraminal narrowing. Mild central canal stenosis At L5-S1 mild broad disc spur complex results in mild bilateral IV foraminal narrowing IMPRESSION: 1. Minimal chronic compression fractures of the T11-L3 vertebral bodies are unchanged. No acute fracture. 2. Multilevel degenerative change Interpreted and Authenticated by: Kemal Ornelas 10/14/19
[2019-10-14] MEDS: SENNOSIDES/DOCUSATE SODIUM 1 TAB TABLET PO SCH (22:51)
[2019-10-14] MEDS ORDERED: OLANZapine 10 MG VIAL IM SCH (23:15)
[2019-10-14] MEDS ORDERED: OLANZapine 10 MG VIAL IM ONE (23:20)
[2019-10-15] MEDS: HYDROmorphone 2 MG/ML VIAL IV PRN ×2 (00:03→07:50)
--- NOTE | 2019-10-15 04:36 | Cat Scan Report ---
CLINICAL INFORMATION: Trauma back pain evaluate for fracture COMPARISON: Thoracic plain films 09/27/2019 and 07/16/2019. TECHNIQUE: 0.625 mm helical slices were obtained from the mid T7 through the L2 vertebral bodies. Following reconstruction, 2.5 mm coronal, sagittal, and axial reformations (angle to the disc spaces) were processed. Exam was reviewed at bone and soft tissue windows.The exam was performed using radiation dose optimization techniques including, but not limited to, automated exposure control, adjustment of the mA and/or kV according to patient size and use of iterative reconstruction technique. FINDINGS: Multiple osteoporotic compression fractures again noted: Mild and, moderate T4 and T5, mild T6, T7 and T8, severe T9, minimal T10, mild T11 and T12. The T9 compression fracture has lost additional vertebral height since the comparison plain films suggesting acute on chronic fracture. There is approximately 80% loss of disc height. A 9 mm island in the anterior T2 vertebral body is chronic. All the fractures are anatomically aligned and there is no fracture extension to the posterior elements to suggest instability. The thoracic cord is normal in contour and homogeneous without focal lesion. Paraspinous soft tissues are significant for small bilateral pleural effusion and mild patchy airspace disease in both posterior lower lobes likely atelectasis. At T8-9 and T9-10 mild broad disc protrusion minimally impinging the thecal sac. At T9-10, there is moderate IV foraminal narrowing with mild impingement of the exiting T9 nerve roots. At T10-11 mild broad disc protrusion results in moderate right IV foraminal narrowing possibly exiting right T10 nerve root. At T11-T12 moderate broad disc spur complex results in mild central canal and moderate right IV foraminal narrowing. IMPRESSION: 1. Multiple chronic osteoporotic compression fracture - most severe at T9 . All fractures are anatomically aligned without posterior element extension to suggest instability. If precise acuity information is required because the patient is a vertebroplasty candidate, suggest thoracic MRI 2. Multilevel degenerative disc disease Interpreted and Authenticated by: Kemal Ornelas 10/15/19
[2019-10-15] MEDS: 0.9 % SODIUM CHLORIDE 10 ML SYRINGE IV SCH ×3 (05:21→23:07)
[2019-10-15 07:11] LABS: ALT/SGPT 53 U/l (0-40); AST/SGOT 25 U/l (0-37); Albumin 3.3 gm/dL (3.2-5.2); Albumin/Globulin Ratio 1.2 (1.0-2.3); Alkaline Phosphatase 247 U/L (39-117); Bilirubin,Direct < 0.2 mg/dL (0.0-0.3); Bilirubin,Total 0.5 mg/dL (0.0-1.0); Blood Urea Nitrogen 28 mg/dl (8-23); Calcium 8.3 mg/dl (8.6-10.4); Carbon Dioxide 28 mmol/L (22-30); Chloride 101 mmol/L (96-108); Globulin 2.7 gm/dL (2.2-3.7); Glomerular Filtration Rate 80; Glucose 72 mg/dL (70-105); Lactate Dehydrogenase 241 U/L (94-250); Phosphorous 3.1 mg/dL (2.7-4.5); Triglycerides 48 mg/dl (<150); Uric Acid 3.8 mg/dL (2.5-8.0)
[2019-10-15 07:14] LABS: Hematocrit 38.8 % (40.1-51.0); Hemoglobin 12.3 g/dL (13.7-17.5); Mean Cell Volume 103.2 fL (80.0-100.0); Mean Corpuscular HGB Conc 31.7 g/dL (31.0-36.0); Mean Platelet Volume 9.7 fL (7.4-10.4); Platelet Count 245 K/mcL (140-440); RBC 3.76 M/mcL (4.63-6.08); WBC 9.3 K/mcL (4.50-11.00)
[2019-10-15] MEDS: FOLIC ACID 1 MG TABLET PO SCH (09:16)
[2019-10-15] MEDS: LACTOBACILLUS 1 CAPSULE PO SCH ×2 (09:16→23:06)
[2019-10-15] MEDS: TAMSULOSIN 0.4 MG CAPSULE PO SCH (09:16)
[2019-10-15] MEDS: MULTIVIT,THER IRON,CA,FA & MIN 1 TABLET PO SCH (09:16)
[2019-10-15] MEDS: DOCUSATE SODIUM 100 MG CAPSULE PO SCH ×2 (09:16→23:07)
[2019-10-15] MEDS: FERROUS SULFATE 325 MG TABLET PO SCH (09:16)
[2019-10-15] MEDS: HEPARIN 5,000 UNIT/ML VIAL SQ SCH ×2 (09:16→23:05)
[2019-10-15] MEDS: FLUTICASONE PROPIONATE SPRAY.NAS NS SCH (09:16)
[2019-10-15] MEDS: Budesonide/Formoterol Fumarate [Symbicort] 160-4.5 mcg Inhaler INH SCH ×2 (09:17→23:07)
[2019-10-15 09:28] LABS: Anisocytosis 1+ (NONE SEEN); Eosinophils % (Manual) 1 % (0-7); Lymphocytes % 17 % (15-49); Macrocytosis 1+ (NONE SEEN); Monocytes % (Manual) 9 % (1-12); Platelet Estimate NORMAL (NORMAL); RBC Morphology ABNORM (NORMAL); Segmented Neutrophils % 73 % (38-78)
[2019-10-15] MEDS: CYANOCOBALAMIN (VITAMIN B-12) 500 MCG TABLET PO SCH ×2 (10:33→23:06)
[2019-10-15] MEDS: THIAMINE 100 MG TABLET PO SCH (10:33)
[2019-10-15] MEDS: ACETAMINOPHEN 650 MG/65 ML BOTTLE IV PRN (11:04)
--- NOTE | 2019-10-15 12:05 | XRay Report ---
CLINICAL INFORMATION: sob COMPARISON: 10/13/2019 FINDINGS: Mild cardiomegaly is unchanged. Thoracic aorta is mildly tortuous. Mediastinum and pulmonary vessels are otherwise normal. There is minor bibasilar atelectasis. No effusion. The SPIRITUAL MINISTER shunt catheter overlies the right neck and chest. IMPRESSION: Mild cardiomegaly and minor bibasilar atelectasis Interpreted and Authenticated by: Kemal Ornelas 10/15/19
--- NOTE | 2019-10-15 14:59 | Internal Med Progress Note ---
Medical - PN: Subj Patient information: Note initiated : 10/15/19 at 2:54 pm Service Date, if different from initiated Date: [] Patient: Reginald Gonzales 89 y/o M admitted on 10/13/19 for Back pain. Chief Complaint: [] Interval history: Mr. Gonzales is a 89 year old M with a history of obstructive hydrocephalus/dementia and COPD who presents to the ER along with his with worsening weakness along with recurrent falls. Patient symptoms are associated with increasing lower back pain which is progressed over the last 2 months. Patient has been evaluated at the pain clinic and has not responded to treatment. He was recommended MRI for evaluation of vertebroplasty which is scheduled at [facility] on . However patient is sustained additional couple of falls in the last 48 hours and his is extremely frustrated being unable to take care of him due to advanced age and physical limitation. She brings him to the ER for evaluation and management of pain. Initial work-up was essentially unremarkable except for white count 12.3 and sixth and seventh rib fracture without evidence of pneumo or hemothorax. Due to profoundly debilitated state and inability of family to take care of patient hospital service was consulted for admission. At evaluation patient is unable to provide any history. He suffers from baseline dementia. He is under the effect of 2 doses of Dilaudid and was barely able to open his eyes. Most of the history was obtained from review of medical records/ER physician. Per records no recent fever, headache, nausea, diarrhea or abdominal pain. 10/14-patient currently on opioids. extremely concerned about persistent pain however patient does not seem to be in discomfort and received only 2 doses of opioids since last night. Transitioning to oral opioids. ST eval today. MRI scheduled at [facility] on . Attempt physical therapy today. 10/15-patient remains intermittently confused, on oral and IV Tylenol/opioids as needed. Case discussed with neurosurgeon about changing mental status and 's concerns about BP shunt failure. However neurosurgeon of the opinion that mental status change is not secondary to shunt issue. CT no evidence of worsening hydrocephalus. Neurosurgery recommended outpatient clinic follow-up on . CT spine no evidence of acute fractures except for chronic vertebral fracture. Ongoing nutrition support/PT OT. worried about fecal impaction. Start enemas. Discussed in depth about deteriorating status and progression of dementia and future goals of care. considering options of comfort care and indicated her wish to transfer Reginald to advanced care alf. Caregiver at bedside. - Constitutional Vitals: Vital Signs Temp Pulse Resp BP Pulse Ox 98.8 F 103 H 22 132/78 91 10/15/19 12:00 10/15/19 12:00 10/15/19 12:00 10/15/19 12:00 10/15/19 12:00 Period Temp Pulse Resp BP Sys/Eduardo Pulse Ox Last 24 Hr 97.8 F-98.8 F 70-103 18-24 126-182/69-91 91-99 Intake and Output 10/15/19 10/15/19 10/15/19 05:59 13:59 21:59 Intake Total 0 Output Total 1 Balance 0 -1 Intake & Output: Intake & Output 10/15/19 10/15/19 10/15/19 05:59 13:59 21:59 Intake Total 0 Output Total 1 Balance 0 -1 Intake: Oral 0 Output: # of times incontinent of urine 1 Other: Meal Breakfast Percent of Meal Consumed 0% Feeding Ability Total Assistance # Voids 1 # Bowel Movements 0 General appearance: no acute distress Exam: Occasionally opens eyes to verbal commands Resting comfortably Nonlabored breathing No anxiety no lymphedema Medical - PN: Obj Da - Labs CBC & Chem 7: 10/15/19 05:28 10/15/19 05:28 Labs: Abnormal Lab Results 10/15/19 10/15/19 10/13/19 05:28 05:28 17:08 WBC RBC 3.76 L Hgb 12.3 L Hct 38.8 L POC Hct 40.0 L MCV 103.2 H Lymph % (Auto) Bureau % (Auto) Gran # Lymph # (Auto) Bureau # (Auto) RBC Morphology Abnorm A Anisocytosis 1+ A Macrocytosis 1+ A Carbon Dioxide 21 L POC BUN 41 H BUN 28 H 37 H Calcium 8.3 L POC WB Ioniz Calcium 1.07 L AST 38 H ALT 53 H 78 H Alkaline Phosphatase 247 H 250 H 10/13/19 17:08 WBC 12.3 H RBC 4.19 L Hgb Hct POC Hct MCV 102.4 H Lymph % (Auto) 8.8 L Bureau % (Auto) 15.1 H Gran # 9.29 H Lymph # (Auto) 1.08 L Bureau # (Auto) 1.85 H RBC Morphology Anisocytosis Macrocytosis Carbon Dioxide POC BUN BUN Calcium POC WB Ioniz Calcium AST ALT Alkaline Phosphatase Meds: Medications Acetaminophen (Tylenol) 650 mg PO Q4-6HP PRN; Protocol PRN Reason: Per Pain Protocol/Fever > 101 Hydrocodone Bitart/Acetaminophen ([place] 5/325mg) 0 tab PO Q4HP PRN; Protocol PRN Reason: Per Pain Protocol Albuterol Sulfate (Ventolin) 1 puff INH Q6HP PRN PRN Reason: Dyspnea Albuterol/Ipratropium (Duoneb) 3 ml NEB Q4HP PRN PRN Reason: Shortness Of Breath Last Admin: 10/14/19 18:17 Dose: 3 ml Documented by: Bisacodyl (Dulcolax) 10 mg [place] Q2-3DAYS PRN PRN Reason: Constipation Last Admin: 10/15/19 11:04 Dose: 10 mg Documented by: Cyanocobalamin (Vitamin B-12) 1,000 mcg PO BID [facility] Stop: 10/18/19 21:01 Last Admin: 10/15/19 10:33 Dose: Not Given Documented by: Docusate Sodium (Colace) 100 mg PO BID [facility] Last Admin: 10/15/19 09:16 Dose: Not Given Documented by: Ferrous Sulfate (Ferrous Sulfate) 325 mg PO [facility] Last Admin: 10/15/19 09:16 Dose: Not Given Documented by: Fluticasone Propionate (Flonase) 2 spray NS QDAY [facility] Last Admin: 10/15/19 09:16 Dose: Not Given Documented by: Folic Acid (Folic Acid) 1 mg PO DAILY [facility] Last Admin: 10/15/19 09:16 Dose: Not Given Documented by: Heparin Sodium (Porcine) (Heparin) 5,000 unit SQ Q12 [facility] Last Admin: 10/15/19 09:16 Dose: 5,000 unit Documented by: Acetaminophen (Ofirmev) 650 mg in 65 mls @ 130 mls/hr IV Q6HP PRN; Protocol PRN Reason: PAIN/FEVER > 101 Last Admin: 10/15/19 11:04 Dose: 130 mls/hr Documented by: Magnesium Sulfate (Magnesium Sulfate) 2 gm in 50 mls @ 50 mls/hr IV UD PRN PRN Reason: MG = or < 1.7 Iron Carb/Multivit/[place]/Folic Acid (Multivitamin W/Minerals) 1 tab PO DAILY [facility] Last Admin: 10/15/19 09:16 Dose: Not Given Documented by: Lactobacillus Rhamnosus (Culturelle) 1 cap PO BID [facility] Last Admin: 10/15/19 09:16 Dose: Not Given Documented by: Melatonin (Melatonin 3mg Tablet) 3 mg PO HSP PRN PRN Reason: Insomnia Ondansetron HCl (Zofran) 4 mg IV Q4-6HP PRN PRN Reason: Nausea And Vomiting Ondansetron HCl (Zofran Odt) 4 mg SL Q4-6HP PRN; Protocol PRN Reason: Nausea And Vomiting Budesonide/Formoterol Fumarate [Symbicort] 160-4.5 Mcg Inhaler 2 dose INH BID [facility] Last Admin: 10/15/19 09:17 Dose: Not Given Documented by: Tiotropium [place] [ Spiriva Respimat] Inhaler 2 dose INH QDAY [facility] Last Admin: 10/15/19 09:17 Dose: Not Given Documented by: Polyethylene Glycol (Miralax) 17 gm PO DAILYP PRN PRN Reason: Constipation Potassium Chloride (Klor-Con) 40 meq PO DAILYP PRN PRN Reason: K+ < 3.5 Senna/Docusate Sodium (Senna Plus Tablet) 1 tab PO HS [facility] Last Admin: 10/14/19 22:51 Dose: Not Given Documented by: Sodium Chloride (Saline Flush) 10 ml IV Q8 [facility] Last Admin: 10/15/19 05:21 Dose: 10 ml Documented by: Tamsulosin HCl (Flomax) 0.4 mg PO QDAY [facility] Last Admin: 10/15/19 09:16 Dose: Not Given Documented by: Thiamine HCl (Vitamin B1) 100 mg PO DAILY [facility] Last Admin: 10/15/19 10:33 Dose: Not Given Documented by: Tramadol HCl (Ultram) 50 mg PO Q4-6HP PRN; Protocol PRN Reason: Per Pain Protocol Medical - PN: A/P - Time Spent With Patient Total time spent is greater than 50% in coordination of care (as documented) at patient's floor/unit and/or counseling patient: 25 - 35 minutes (1) Recurrent falls Status: Acute Assessment and plan: * Change in mental status, normal head CT/biochemical profile. No evidence of infection. Avoid sedative-hypnotics/opioids. Continue monitoring. Per neurosurgery not a DISCHARGE DOOR OPERATOR shunt issue and would like to follow-up with patient in his clinic on * Recurrent falls due to weakness , continue fall precautions, patient remains lethargic and hence not amenable to physical therapy at this time * Intractable back pain responded well to opioids. CT spine no evidence of acute fracture except for chronic multiple vertebral fractures. * Advanced dementia/self-care deficits-Case management exploring options for transfer to SNF * History of obstructive hydrocephalus status post DISCHARGE DOOR OPERATOR shunting by Dr. Medina neurosurgery. No evidence of recurrent hydrocephalus on head CT * Sixth and seventh rib fractures no evidence of hemopneumothorax. Ongoing pain management * History of COPD continue bronchodilators * CHIP * BPH continue tamsulosin * Full code * Prophylaxis heparin Plan * Continue oral pain medications * Enema/fecal disimpaction * Continue PT OT/nutrition support * Discharge planning per case management * Prior medical condition management as above * Nutrition support Current Visit: Yes Medical - PN: Qual - Stroke Symptom Onset Unknown: No - VTE Deep Vein Thrombosis/Pulmonary Embolism Present on Admission: No
[2019-10-15 16:14] LABS: Appearance,Urine CLEAR; Bilirubin,Urine NEG (NEG); Color,Urine YELLOW; Culture Indicated,Urine NO; Glucose,Urine (UA) NEGATIVE (NEG); Ketones,Urine 20 mg/dL (NEG); Leukocyte Esterase,Urine NEG /uL (NEG); Nitrate,Urine NEG (NEG); Protein,Urine NEG (NEG); Urine Blood NEG mg/dL (<0.03); Urobilinogen,Urine NEG (NEG)
[2019-10-15] MEDS: 0.9 % SODIUM CHLORIDE 1,000 ML IV SCH (16:43)
[2019-10-15] MEDS: IPRATROPIUM/ALBUTEROL 3 ML AMPUL.NEB NEB PRN (19:34)
[2019-10-15] MEDS: LACTULOSE 20 GM/30 ML ORAL.SOL PO SCH (23:05)
[2019-10-15] MEDS: POLYETHYLENE GLYCOL 3350 17 GM PACKET PO PRN (23:05)
[2019-10-15] MEDS: SENNOSIDES/DOCUSATE SODIUM 1 TAB TABLET PO SCH (23:07)
--- NOTE | 2019-10-16 02:48 | XRay Report ---
CLINICAL INFORMATION: No bm for 5 days COMPARISON: 05/26/2019 FINDINGS: There is large amount of stool impacted within the distal sigmoid and rectum. There is only moderate stool seen in the descending colon. Stomach and small/ large bowel remain normal caliber. No free air, soft tissue mass or organomegaly. The MANAGER PATIENT shunt catheter overlies the right upper quadrant IMPRESSION: Moderate impacted rectal stool Interpreted and Authenticated by: Kemal Ornelas 10/16/19
[2019-10-16] MEDS: ACETAMINOPHEN 650 MG/65 ML BOTTLE IV PRN ×2 (03:26→15:30)
[2019-10-16] MEDS: 0.9 % SODIUM CHLORIDE 10 ML SYRINGE IV SCH ×3 (04:45→21:02)
[2019-10-16] MEDS: FERROUS SULFATE 325 MG TABLET PO SCH (07:31)
[2019-10-16 07:49] LABS: Hemoglobin 13.6 g/dL (13.7-17.5); Mean Corpuscular HGB Conc 32.4 g/dL (31.0-36.0); Mean Platelet Volume 9.8 fL (7.4-10.4); Platelet Count 244 K/mcL (140-440); RBC 4.16 M/mcL (4.63-6.08); Red Cell Distribution Width 12.8 % (11.5-14.5); WBC 13.4 K/mcL (4.50-11.00)
[2019-10-16 08:22] LABS: Lymphocytes % 7 % (15-49); Macrocytosis 1+ (NONE SEEN); Monocytes % (Manual) 14 % (1-12); Platelet Estimate NORMAL (NORMAL); RBC Morphology ABNORM (NORMAL); Segmented Neutrophils % 79 % (38-78)
[2019-10-16 08:26] LABS: ALT/SGPT 45 U/l (0-40); AST/SGOT 27 U/l (0-37); Albumin 2.8 gm/dL (3.2-5.2); Albumin/Globulin Ratio 0.9 (1.0-2.3); Alkaline Phosphatase 253 U/L (39-117); Bilirubin,Direct 0.2 mg/dL (0.0-0.3); Bilirubin,Total 0.7 mg/dL (0.0-1.0); Calcium 8.5 mg/dl (8.6-10.4); Carbon Dioxide 24 mmol/L (22-30); Chloride 102 mmol/L (96-108); Globulin 3.2 gm/dL (2.2-3.7); Glomerular Filtration Rate 80; Glucose 107 mg/dL (70-105); Lactate Dehydrogenase 346 U/L (94-250); Phosphorous 3.1 mg/dL (2.7-4.5); Triglycerides 43 mg/dl (<150); Uric Acid 4.2 mg/dL (2.5-8.0)
[2019-10-16 08:27] LABS: Blood Urea Nitrogen 34 mg/dl (8-23)
[2019-10-16] MEDS: HEPARIN 5,000 UNIT/ML VIAL SQ SCH ×3 (08:47→21:01)
[2019-10-16] MEDS: CYANOCOBALAMIN (VITAMIN B-12) 500 MCG TABLET PO SCH ×3 (08:47→21:02)
[2019-10-16] MEDS: LACTULOSE 20 GM/30 ML ORAL.SOL PO SCH ×6 (08:47→21:00)
[2019-10-16] MEDS: MULTIVIT,THER IRON,CA,FA & MIN 1 TABLET PO SCH (08:48)
[2019-10-16] MEDS: THIAMINE 100 MG TABLET PO SCH (08:48)
[2019-10-16] MEDS: FOLIC ACID 1 MG TABLET PO SCH (08:48)
[2019-10-16] MEDS: FLUTICASONE PROPIONATE SPRAY.NAS NS SCH (08:48)
[2019-10-16] MEDS: TAMSULOSIN 0.4 MG CAPSULE PO SCH (08:48)
[2019-10-16] MEDS: Budesonide/Formoterol Fumarate [Symbicort] 160-4.5 mcg Inhaler INH SCH ×2 (08:48→21:01)
[2019-10-16] MEDS: LACTOBACILLUS 1 CAPSULE PO SCH ×4 (08:48→21:01)
[2019-10-16] MEDS: DOCUSATE SODIUM 100 MG CAPSULE PO SCH ×3 (08:48→21:01)
[2019-10-16] MEDS: IPRATROPIUM/ALBUTEROL 3 ML AMPUL.NEB NEB PRN ×2 (09:49→19:51)
[2019-10-16] MEDS: 0.9 % SODIUM CHLORIDE 1,000 ML IV SCH (14:43)
[2019-10-16] MEDS: SENNOSIDES/DOCUSATE SODIUM 1 TAB TABLET PO SCH ×2 (18:50→21:02)
[2019-10-16] MEDS: POLYETHYLENE GLYCOL 3350 17 GM PACKET PO PRN (18:50)
--- NOTE | 2019-10-16 19:27 | Internal Med Progress Note ---
Medical - PN: Subj Patient information: Note initiated : 10/16/19 at 7:25 pm Service Date, if different from initiated Date: [] Patient: Reginald Gonzales 89 y/o M admitted on 10/13/19 for Back pain. Chief Complaint: [] Interval history: Mr. Gonzales is a 89 year old M with a history of obstructive hydrocephalus/dementia and COPD who presents to the ER along with his with worsening weakness along with recurrent falls. Patient symptoms are associated with increasing lower back pain which is progressed over the last 2 months. Patient has been evaluated at the pain clinic and has not responded to treatment. He was recommended MRI for evaluation of vertebroplasty which is scheduled at [facility] on . However patient is sustained additional couple of falls in the last 48 hours and his is extremely frustrated being unable to take care of him due to advanced age and physical limitation. She brings him to the ER for evaluation and management of pain. Initial work-up was essentially unremarkable except for white count 12.3 and sixth and seventh rib fracture without evidence of pneumo or hemothorax. Due to profoundly debilitated state and inability of family to take care of patient hospital service was consulted for admission. At evaluation patient is unable to provide any history. He suffers from baseline dementia. He is under the effect of 2 doses of Dilaudid and was barely able to open his eyes. Most of the history was obtained from review of medical records/ER physician. Per records no recent fever, headache, nausea, diarrhea or abdominal pain. 10/14-patient currently on opioids. extremely concerned about persistent pain however patient does not seem to be in discomfort and received only 2 doses of opioids since last night. Transitioning to oral opioids. ST eval today. MRI scheduled at [facility] on . Attempt physical therapy today. 10/15-patient remains intermittently confused, on oral and IV Tylenol/opioids as needed. Case discussed with neurosurgeon about changing mental status and 's concerns about BP shunt failure. However neurosurgeon of the opinion that mental status change is not secondary to shunt issue. CT no evidence of worsening hydrocephalus. Neurosurgery recommended outpatient clinic follow-up on . CT spine no evidence of acute fractures except for chronic vertebral fracture. Ongoing nutrition support/PT OT. worried about fecal impaction. Start enemas. Discussed in depth about deteriorating status and progression of dementia and future goals of care. considering options of comfort care and indicated her wish to transfer Reginald to advanced care long-term. Caregiver at bedside. 10/16-white count 13.4, more lucid alert responding to commands and tolerating diet. Ongoing PT OT. Possible discharge in 24 hours. at bedside. Discussed treatment plan and along with discharge plan in 24 hours with home health - Constitutional Vitals: Vital Signs Temp Pulse Resp BP Pulse Ox 98.3 F 78 18 109/61 98 10/16/19 15:46 10/16/19 15:46 10/16/19 15:46 10/16/19 15:46 10/16/19 15:46 Period Temp Pulse Resp BP Sys/Eduardo Pulse Ox Last 24 Hr 97.9 F-98.6 F 78-115 16-24 108-133/61-80 94-100 Intake and Output 10/16/19 10/16/19 10/16/19 05:59 13:59 21:59 Intake Total 0 165 165 Output Total 201 Balance 0 165 -36 Weight 146 lb 14.4 oz 146 lb 14.4 oz Patient Weight 10/17/19 05:59 Weight 146 lb 14.4 oz Intake & Output: Intake & Output 10/16/19 10/16/19 10/16/19 05:59 13:59 21:59 Intake Total 0 165 165 Output Total 201 Balance 0 165 -36 Weight 146 lb 14.4 oz 146 lb 14.4 oz Intake: IV 65 65 Oral 0 100 100 Output: Urine Catheter Amount 200 # of times incontinent of urine 1 Other: Percent of Meal Consumed 25% Feeding Ability Needs Supervision Needs Supervision Urine Color Dark Yellow Urine Odor Normal # Voids 1 General appearance: no acute distress Exam: Alert and respond to commands Nonlabored breathing No lymphedema No anxiety Medical - PN: Obj Da - Labs CBC & Chem 7: 10/16/19 06:38 10/16/19 06:38 Labs: Abnormal Lab Results 10/16/19 10/16/19 10/15/19 06:38 06:38 15:15 WBC 13.4 H RBC 4.16 L Hgb 13.6 L Hct MCV 101.0 H Seg Neutrophils % 79 H Lymphocytes % 7 L Monocytes % (Manual) 14 H RBC Morphology Abnorm A Anisocytosis Macrocytosis 1+ A BUN 34 H Glucose 107 H Calcium 8.5 L ALT 45 H Alkaline Phosphatase 253 H Lactate Dehydrogenase 346 H Albumin 2.8 L Albumin/Globulin Ratio 0.9 L Urine Ketones 20 A 10/15/19 10/15/19 05:28 05:28 WBC RBC 3.76 L Hgb 12.3 L Hct 38.8 L MCV 103.2 H Seg Neutrophils % Lymphocytes % Monocytes % (Manual) RBC Morphology Abnorm A Anisocytosis 1+ A Macrocytosis 1+ A BUN 28 H Glucose Calcium 8.3 L ALT 53 H Alkaline Phosphatase 247 H Lactate Dehydrogenase Albumin Albumin/Globulin Ratio Urine Ketones Meds: Medications Acetaminophen (Tylenol) 650 mg PO Q4-6HP PRN; Protocol PRN Reason: Per Pain Protocol/Fever > 101 Hydrocodone Bitart/Acetaminophen ([place] 5/325mg) 0 tab PO Q4HP PRN; Protocol PRN Reason: Per Pain Protocol Albuterol Sulfate (Ventolin) 1 puff INH Q6HP PRN PRN Reason: Dyspnea Albuterol/Ipratropium (Duoneb) 3 ml NEB Q4HP PRN PRN Reason: Shortness Of Breath Last Admin: 10/16/19 09:49 Dose: 3 ml Documented by: Bisacodyl (Dulcolax) 10 mg [place] Q2-3DAYS PRN PRN Reason: Constipation Last Admin: 10/15/19 11:04 Dose: 10 mg Documented by: Cyanocobalamin (Vitamin B-12) 1,000 mcg PO BID [facility] Stop: 10/18/19 21:01 Last Admin: 10/16/19 18:50 Dose: 1,000 mcg Documented by: Docusate Sodium (Colace) 100 mg PO BID [facility] Last Admin: 10/16/19 18:51 Dose: 100 mg Documented by: Ferrous Sulfate (Ferrous Sulfate) 325 mg PO [facility] Last Admin: 10/16/19 07:31 Dose: Not Given Documented by: Fluticasone Propionate (Flonase) 2 spray NS QDAY [facility] Last Admin: 10/16/19 08:48 Dose: Not Given Documented by: Folic Acid (Folic Acid) 1 mg PO DAILY [facility] Last Admin: 10/16/19 08:48 Dose: 1 mg Documented by: Heparin Sodium (Porcine) (Heparin) 5,000 unit SQ Q12 [facility] Last Admin: 10/16/19 18:49 Dose: 5,000 unit Documented by: Acetaminophen (Ofirmev) 650 mg in 65 mls @ 130 mls/hr IV Q6HP PRN; Protocol PRN Reason: PAIN/FEVER > 101 Last Infusion: 10/16/19 16:34 Dose: Infused Documented by: Magnesium Sulfate (Magnesium Sulfate) 2 gm in 50 mls @ 50 mls/hr IV UD PRN PRN Reason: MG = or < 1.7 Sodium Chloride (Sodium Chloride 0.9%) 1,000 mls @ 35 mls/hr IV .Q24H [facility] Last Admin: 10/16/19 14:43 Dose: Not Given Documented by: Iron Carb/Multivit/[place]/Folic Acid (Multivitamin W/Minerals) 1 tab PO DAILY [facility] Last Admin: 10/16/19 08:48 Dose: 1 tab Documented by: Lactobacillus Rhamnosus (Culturelle) 1 cap PO BID [facility] Last Admin: 10/16/19 18:51 Dose: 1 cap Documented by: Lactulose (Cephulac) 30 gm PO QID [facility] Last Admin: 10/16/19 17:10 Dose: 30 gm Documented by: Melatonin (Melatonin 3mg Tablet) 3 mg PO HSP PRN PRN Reason: Insomnia Ondansetron HCl (Zofran) 4 mg IV Q4-6HP PRN PRN Reason: Nausea And Vomiting Ondansetron HCl (Zofran Odt) 4 mg SL Q4-6HP PRN; Protocol PRN Reason: Nausea And Vomiting Budesonide/Formoterol Fumarate [Symbicort] 160-4.5 Mcg Inhaler 2 dose INH BID [facility] Last Admin: 10/16/19 08:48 Dose: Not Given Documented by: Tiotropium [place] [ Spiriva Respimat] Inhaler 2 dose INH QDAY [facility] Last Admin: 10/16/19 08:48 Dose: Not Given Documented by: Polyethylene Glycol (Miralax) 17 gm PO DAILYP PRN PRN Reason: Constipation Last Admin: 10/16/19 18:50 Dose: 17 gm Documented by: Potassium Chloride (Klor-Con) 40 meq PO DAILYP PRN PRN Reason: K+ < 3.5 Senna/Docusate Sodium (Senna Plus Tablet) 1 tab PO HS [facility] Last Admin: 10/16/19 18:50 Dose: 1 tab Documented by: Sodium Chloride (Saline Flush) 10 ml IV Q8 [facility] Last Admin: 10/16/19 13:19 Dose: Not Given Documented by: Tamsulosin HCl (Flomax) 0.4 mg PO QDAY [facility] Last Admin: 10/16/19 08:48 Dose: 0.4 mg Documented by: Thiamine HCl (Vitamin B1) 100 mg PO DAILY [facility] Last Admin: 10/16/19 08:48 Dose: 100 mg Documented by: Tramadol HCl (Ultram) 50 mg PO Q4-6HP PRN; Protocol PRN Reason: Per Pain Protocol Last Admin: 10/15/19 16:42 Dose: 50 mg Documented by: Medical - PN: A/P - Time Spent With Patient Total time spent is greater than 50% in coordination of care (as documented) at patient's floor/unit and/or counseling patient: 25 - 35 minutes (1) Recurrent falls Status: Acute Assessment and plan: * Acute change in mental status, clinically improving and close to baseline normal head CT/biochemical profile. No evidence of infection. Avoid sedative-hypnotics/opioids. Plan to discharge tomorrow with outpatient follow-up with neurosurgery clinic on * Recurrent falls due to weakness , continue fall precautions, plan to discharge home with home health services. * Intractable back pain responded well to opioids. CT spine no evidence of acute fracture except for chronic multiple vertebral fractures. Continue as needed Tylenol/tramadol * Advanced dementia/self-care deficits-will discharge home with home health services * History of obstructive hydrocephalus status post MASTER CONTROL SUPERVISOR shunting by Dr. Medina neurosurgery. No evidence of recurrent hydrocephalus on head CT. Follow-up outpatient * Sixth and seventh rib fractures no evidence of hemopneumothorax. Ongoing pain management * History of COPD continue bronchodilators * CHIP * BPH continue tamsulosin * Full code * Prophylaxis heparin Plan * Continue oral pain medications * Possible discharge in 24 hours * Continue PT OT/nutrition support * Prior medical condition management as above Current Visit: Yes Medical - PN: Qual - Stroke Symptom Onset Unknown: No - VTE Deep Vein Thrombosis/Pulmonary Embolism Present on Admission: No
[2019-10-17] MEDS: 0.9 % SODIUM CHLORIDE 10 ML SYRINGE IV SCH (04:12)
--- NOTE | 2019-10-17 07:51 | Discharge Summary ---
Medical - DS: Prov Patient information: Note initiated : 10/17/19 at 7:48 am Service Date, if different from initiated Date: [] Patient: Reginald Gonzales 89 y/o M admitted on 10/13/19 for Back pain. Chief Complaint: [] Date of admission: 10/13/19 21:42 Discharge date: 10/17/19 Primary care physician: Regina King Consults: 10/14/19 08:15 Consult to Physician [CONS] Routine Comment: Consulting Provider: Ferdinand Hamilton Reason For Exam: Physician to Consult Medical - DS: Meds - Discharge Medications Prescriptions: traMADol [Ultram] 50 mg PO Q4-6HP PRN #20 tab PRN Reason: Per Pain Protocol Prescription Printed Active and Home Medications: Home Medications Ferrous Sulfate [Slow Release Iron] 45 mg PO DAILY 05/25/16 [History Confirmed 10/13/19 Last Taken 10/13/19 12:00] Multivitamin With [place] 3 1 cap PO DAILY 05/25/16 [History Confirmed 10/13/19 Last Taken 10/13/19 12:00] albuterol sulfate 90 mcg/actuation aerosol inhaler 1 inh INHALATION Q6HP PRN #18 g 03/21/17 [Rx Confirmed 10/13/19 Last Taken 10/13/19 04:00] Acetaminophen [Tylenol] 650 mg PO Q6HP PRN tab 03/12/18 [Rx Confirmed 10/13/19 Last Taken 10/13/19 14:00] Docusate Sodium [Colace] 200 mg PO DAILY #100 cap 03/12/18 [Rx Confirmed 10/13/19 Last Taken 10/08/19 08:00] Lactobacillus [Culturelle] 1 cap PO BID #100 cap 03/12/18 [Rx Confirmed 10/13/19 Last Taken 10/08/19 08:00] Ondansetron [Zofran ODT] 4 mg SL Q6HP PRN tab 03/12/18 [Rx Confirmed 10/13/19 Last Taken 10/08/19 08:00] Polyethylene Glycol 3350 [Miralax] 17 gm PO DAILYP PRN #30 packet 03/12/18 [Rx Confirmed 10/13/19 Last Taken 10/08/19 08:00] Tamsulosin [Flomax] 0.4 mg PO QDAY #0 cap 03/12/18 [Rx Confirmed 10/13/19 Last Taken 10/08/19 08:00] testosterone cream See Rx Instructions TOPICAL .apply 2 clicks #30 MDD 5mg /0.25mg 07/25/18 [Rx Confirmed 10/13/19 Last Taken 10/11/19 10:00] fluticasone propionate 50 mcg/actuation nasal spray,suspension 2 spray INTRANASAL QDAY #16 g 03/01/19 [Rx Confirmed 10/13/19 Last Taken 10/10/19 10:00] budesonide-formoterol HFA 160 mcg-4.5 mcg/actuation aerosol inhaler 2 puff INHALATION BID #10.2 g 07/15/19 [Rx Confirmed 10/13/19 Last Taken 10/08/19 17:00] tiotropium bromide 1.25 mcg/actuation mist for inhalation 2 puff INHALATION QDAY #4 g 07/15/19 [Rx Confirmed 10/13/19 Last Taken 10/13/19 03:00] Lactulose [Cephulac] 30 gm PO QID oral.emerald 10/17/19 [Rx Last Taken Unknown] Sennosides/Docusate Sodium [Senna Plus Tablet] 1 tab PO HS tablet 10/17/19 [Rx Last Taken Unknown] traMADol [Ultram] 50 mg PO Q4-6HP PRN #20 tablet 10/17/19 [Rx Last Taken Unknown] Medical - DS: Hosp Hospital Course: Discharge diagnosis * Acute change in mental status, clinically resolved now at baseline . Extensive evaluation unremarkable including head CT/biochemical profile. No evidence of infection. Avoid sedative-hypnotics/opioids. Discharging with advised to follow-up with neurosurgery clinic today for BP shunt evaluation * Recurrent falls due to weakness , continue fall precautions,discharge home with home health services. Neurosurgery follow-up for BP shunt evaluation * Intractable back pain responded well to opioids. CT spine no evidence of acute fracture except for chronic multiple vertebral fractures. Continue as needed Tylenol/tramadol. Follow-up outpatient with pain clinic * Advanced dementia/self-care deficits-continue home health services * History of obstructive hydrocephalus status post CHILD STUDY TEAM DIRECTOR shunting by Dr. Medina neurosurgery. No evidence of recurrent hydrocephalus on head CT. Follow-up outpatient * Sixth and seventh rib fractures no evidence of hemopneumothorax. Continue incentive spirometer use/as needed pain control * History of COPD continue bronchodilators * CHIP * BPH continue tamsulosin Brief hospital course Mr. Gonzales is a 89 year old M with a history of obstructive hydrocephalus/dementia and COPD who presents to the ER along with his with worsening weakness along with recurrent falls. Patient symptoms are associated with increasing lower back pain which is progressed over the last 2 months. Patient has been evaluated at the pain clinic and has not responded to treatment. He was recommended MRI for evaluation of vertebroplasty which is scheduled at [facility] on . However patient is sustained additional couple of falls in the last 48 hours and his is extremely frustrated being unable to take care of him due to advanced age and physical limitation. She brings him to the ER for evaluation and management of pain. Initial work-up was essentially unremarkable except for white count 12.3 and sixth and seventh rib fracture without evidence of pneumo or hemothorax. Due to profoundly debilitated state and inability of family to take care of patient hospital service was consulted for admission. At evaluation patient is unable to provide any history. He suffers from baseline dementia. He is under the effect of 2 doses of Dilaudid and was barely able to open his eyes. Most of the history was obtained from review of medical records/ER physician. Per records no recent fever, headache, nausea, diarrhea or abdominal pain. 10/14-patient currently on opioids. extremely concerned about persistent pain however patient does not seem to be in discomfort and received only 2 doses of opioids since last night. Transitioning to oral opioids. ST ev today. MRI scheduled at [facility] on . Attempt physical therapy today. 10/15-patient remains intermittently confused, on oral and IV Tylenol/opioids as needed. Case discussed with neurosurgeon about changing mental status and 's concerns about BP shunt failure. However neurosurgeon of the opinion that mental status change is not secondary to shunt issue. CT no evidence of worsening hydrocephalus. Neurosurgery recommended outpatient clinic follow-up on . CT spine no evidence of acute fractures except for chronic vertebral fracture. Ongoing nutrition support/PT OT. worried about fecal impaction. Start enemas. Discussed in depth about deteriorating status and progression of dementia and future goals of care. considering options of comfort care and indicated her wish to transfer Reginald to [facility]. Caregiver at bedside. 10/16-white count 13.4, more lucid alert responding to commands and tolerating diet. Ongoing PT OT. Possible discharge in 24 hours. at bedside. Discussed treatment plan and along with discharge plan in 24 hours with home health 10/17-patient doing well. No overnight events. No concerns per staff. Discharging with home health services. Recommend following up with pain clinic for chronic back pain from vertebral fracture/neurosurgery for CHILD STUDY TEAM DIRECTOR shunt evaluation. Discharge instructions as below Discharge diagnosis: . - Time Spent with Patient Total time spent providing and/or coordinating discharge services: Greater than 30 minutes Medical - DS: Exam - Constitutional Vitals: Vital Signs Temp Pulse Pulse Resp BP BP Pulse Ox 10/17/19 02:25 98.2 F 83 20 143/80 95 10/16/19 23:22 97.9 F 87 18 125/71 95 10/16/19 19:57 82 12 10/16/19 19:53 98.3 F 88 20 118/76 93 10/16/19 15:46 98.3 F 78 18 109/61 98 10/16/19 11:51 97.9 F 92 H 16 108/71 96 10/16/19 09:49 84 20 10/16/19 08:00 98.2 F 104 H 16 119/74 98 Intake and Output 10/16/19 10/17/19 10/17/19 21:59 05:59 13:59 Intake Total 285 120 Output Total 201 925 Balance 84 -805 Intake: IV 65 Oral 220 120 Output: Urine Catheter Amount 200 Void Amount 925 # of times incontinent of urine 1 Other: Meal Lunch Percent of Meal Consumed 75% Feeding Ability Assist with Tray Set Up Urine Color Dark Yellow Dark Yellow Urine Odor Normal Weight 152 lb Medical - DS: Data Labs on day of discharge: Labs from last 24 hours 10/17/19 10/17/19 10/16/19 06:34 06:34 06:38 WBC Pending RBC Pending Hgb Pending Hct Pending MCV Pending MCH Pending MCHC Pending RDW Pending Plt Count Pending MPV Pending Total Counted Pending Seg Neutrophils % Band Neutrophils % Not Reportable Lymphocytes % Monocytes % (Manual) Platelet Estimate Pending RBC Morphology Pending Macrocytosis Sodium Pending 138 Potassium Pending 4.2 Chloride Pending 102 Carbon Dioxide Pending 24 Anion Gap Pending 12.0 BUN Pending 34 H Creatinine Pending 0.8 GFR Calculation Pending 80 Glucose Pending 107 H Uric Acid Pending 4.2 Calcium Pending 8.5 L Phosphorus Pending 3.1 Magnesium Pending 2.1 Total Bilirubin Pending 0.7 Direct Bilirubin Pending 0.2 GGT Pending 47 AST Pending 27 ALT Pending 45 H Alkaline Phosphatase Pending 253 H Lactate Dehydrogenase Pending 346 H Total Protein Pending 6.0 Albumin Pending 2.8 L Globulin Pending 3.2 Albumin/Globulin Ratio Pending 0.9 L Triglycerides Pending 43 10/16/19 06:38 WBC 13.4 H RBC 4.16 L Hgb 13.6 L Hct 42.0 MCV 101.0 H MCH 32.7 MCHC 32.4 RDW 12.8 Plt Count 244 MPV 9.8 Total Counted 100 Seg Neutrophils % 79 H Band Neutrophils % Lymphocytes % 7 L Monocytes % (Manual) 14 H Platelet Estimate Normal RBC Morphology Abnorm A Macrocytosis 1+ A Sodium Potassium Chloride Carbon Dioxide Anion Gap BUN Creatinine GFR Calculation Glucose Uric Acid Calcium Phosphorus Magnesium Total Bilirubin Direct Bilirubin GGT AST ALT Alkaline Phosphatase Lactate Dehydrogenase Total Protein Albumin Globulin Albumin/Globulin Ratio Triglycerides Medical - DS: A/P - Patient/Caregiver Discharge Instructions Activity: as per physical therapy, increase activity as tolerated Diet: Regular Diet Prescriptions: traMADol [Ultram] 50 mg PO Q4-6HP PRN #20 tab PRN Reason: Per Pain Protocol Prescription Printed - Problem Maintenance (1) Recurrent falls Status: Acute - Follow up Plan Follow up with: Regina King ARNP [Primary Care Provider] - Disposition: Home, Self-Care Prognosis: Fair Rehab Potential: Fair I certify that the patient requires SNF services: No Overall status at discharge: patient is progressing back to baseline Medical - DS: Qual - VTE Deep Vein Thrombosis/Pulmonary Embolism Present on Admission: No
[2019-10-17] MEDS: CYANOCOBALAMIN (VITAMIN B-12) 500 MCG TABLET PO SCH (08:14)
[2019-10-17] MEDS: MULTIVIT,THER IRON,CA,FA & MIN 1 TABLET PO SCH (08:14)
[2019-10-17] MEDS: LACTOBACILLUS 1 CAPSULE PO SCH (08:14)
[2019-10-17] MEDS: THIAMINE 100 MG TABLET PO SCH (08:14)
[2019-10-17] MEDS: HEPARIN 5,000 UNIT/ML VIAL SQ SCH (08:14)
[2019-10-17] MEDS: FLUTICASONE PROPIONATE SPRAY.NAS NS SCH (08:15)
[2019-10-17] MEDS: FOLIC ACID 1 MG TABLET PO SCH (08:15)
[2019-10-17] MEDS: FERROUS SULFATE 325 MG TABLET PO SCH (08:15)
[2019-10-17] MEDS: LACTULOSE 20 GM/30 ML ORAL.SOL PO SCH (08:15)
[2019-10-17] MEDS: Budesonide/Formoterol Fumarate [Symbicort] 160-4.5 mcg Inhaler INH SCH (08:15)
[2019-10-17] MEDS: TAMSULOSIN 0.4 MG CAPSULE PO SCH (08:15)
[2019-10-17] MEDS: DOCUSATE SODIUM 100 MG CAPSULE PO SCH (08:15)
[2019-10-17 10:07] LABS: Hematocrit 40.2 % (40.1-51.0); Mean Corpuscular HGB Conc 32.3 g/dL (31.0-36.0); Mean Platelet Volume 10.1 fL (7.4-10.4); Platelet Count 234 K/mcL (140-440); RBC 3.98 M/mcL (4.63-6.08); Red Cell Distribution Width 12.7 % (11.5-14.5); WBC 11.9 K/mcL (4.50-11.00)
[2019-10-17 10:33] LABS: ALT/SGPT 48 U/l (0-40); AST/SGOT 31 U/l (0-37); Albumin 3.1 gm/dL (3.2-5.2); Alkaline Phosphatase 254 U/L (39-117); Bilirubin,Total 0.6 mg/dL (0.0-1.0); Blood Urea Nitrogen 33 mg/dl (8-23); Calcium 8.7 mg/dl (8.6-10.4); Carbon Dioxide 24 mmol/L (22-30); Chloride 104 mmol/L (96-108); Glomerular Filtration Rate 80; Glucose 105 mg/dL (70-105); Lactate Dehydrogenase 298 U/L (94-250); Triglycerides 66 mg/dl (<150); Uric Acid 3.6 mg/dL (2.5-8.0)
[2019-10-17 10:45] LABS: Bilirubin,Direct < 0.2 mg/dL (0.0-0.3); Phosphorous 2.4 mg/dL (2.7-4.5)
[2019-10-17 11:17] LABS: Anisocytosis 1+ (NONE SEEN); Lymphocytes % 11 % (15-49); Macrocytosis 1+ (NONE SEEN); Monocytes % (Manual) 11 % (1-12); Platelet Estimate NORMAL (NORMAL); RBC Morphology ABNORM (NORMAL); Segmented Neutrophils % 78 % (38-78)
== END 2019-10-17 10:55 | disposition home or self-care (01) ==
LOC: ED 16:32 → MEDSUR 16:32
PROVIDERS: ADMIT Internal Medicine; ATTEND Internal Medicine

== ENCOUNTER 2019-10-19 18:20 | Observation (INO) ==
[2019-10-19] MEDS ORDERED: 0.9 % SODIUM CHLORIDE 1,000 ML IV ONE (18:56)
--- NOTE | 2019-10-19 19:05 | Emergency Department Note ---
Weakness HPI - General Chief complaint: Weakness Stated complaint: Generalized weakness Time Seen by Provider: 10/19/19 18:40 Source: EMS, other Mode of arrival: EMS Limitations: altered mental status - History of Present Illness HPI Narrative: Patient is an 89-year-old male who comes into the emergency Department today by EMS. His reports that he has had increased generalized weakness, and she is having a hard time lifting him at home as he is requiring more assistance at home. They do have a caregiver that comes in the home currently. His provides care for him at other times. He was seen at [facility] [address] of the brain without contrast showed no acute intracranial pathology. Two-view chest x-ray was normal chest x-ray. Patient was discharged home and was set up to arrange an MRI to be done yesterday of his back. The reports that this was going to require general anesthesia , so that he could tolerate the MRI. Apparently this was not set up for the patient to have this done, and they had to reschedule this MRI for next week. He is urinating and his reports that he is able to urinate into a urinal. He has not had any loss of bowel or bladder. His reports that he has had the back pain, and is waiting for the MRI to see about possible surgery. He has had back pain and is taking hydrocodone and tramadol. His reports that he is tired and a little bit confused, but apparently he is at his baseline mental status and function. He has had a infrequent cough. She has not noticed any fevers. He reports left hip pain today. His reports that he fell several months ago. He has not had any recent falls. - Related Data Home Medications Medication Instructions Recorded Confirmed Ferrous Sulfate [Slow Release Iron] 45 mg PO DAILY 05/25/16 10/20/19 Multivitamin With [place] 3 1 cap PO DAILY 05/25/16 10/20/19 Previous Rx's Medication Instructions Recorded albuterol sulfate 90 mcg/actuation 1 inh INHALATION Q6HP PRN #18 g 03/21/17 aerosol inhaler Acetaminophen [Tylenol] 650 mg PO Q6HP PRN tab 03/12/18 Docusate Sodium [Colace] 200 mg PO DAILY #100 cap 03/12/18 Lactobacillus [Culturelle] 1 cap PO BID #100 cap 03/12/18 Ondansetron [Zofran ODT] 4 mg SL Q6HP PRN tab 03/12/18 Polyethylene Glycol 3350 [Miralax] 17 gm PO DAILYP PRN #30 packet 03/12/18 Tamsulosin [Flomax] 0.4 mg PO QDAY #0 cap 03/12/18 testosterone cream See Rx Instructions TOPICAL .apply 07/25/18 2 clicks #30 MDD 5mg /0.25mg fluticasone propionate 50 2 spray INTRANASAL QDAY #16 g 03/01/19 mcg/actuation nasal spray,suspension budesonide-formoterol HFA 160 2 puff INHALATION BID #10.2 g 07/15/19 mcg-4.5 mcg/actuation aerosol inhaler tiotropium bromide 1.25 2 puff INHALATION QDAY #4 g 07/15/19 mcg/actuation mist for inhalation Lactulose [Cephulac] 30 gm PO QID oral.emerald 10/17/19 Sennosides/Docusate Sodium [Senna 1 tab PO HS tab 10/17/19 Plus Tablet] traMADol [Ultram] 50 mg PO Q4-6HP PRN #20 tab 10/17/19 Allergies Allergy/AdvReac Type Severity Reaction Status Date / Time No Known Drug Allergies Allergy Verified 10/19/19 18:31 Review of Systems Constitutional: Denies: fever, chills Eyes: Denies: vision change ENT ED: Denies: ear pain, throat pain Cardiovascular: Denies: chest pain, palpitations, dyspnea on exertion Respiratory: Reports: as per HPI, cough. Denies: shortness of breath, wheezes, phlegm Gastrointestinal: Denies: abdominal pain, nausea, vomiting Genitourinary: Denies: dysuria, frequency Musculoskeletal: Denies: back pain, joint swelling Integumentary: Denies: rash, lesions Neurological: Reports: as per HPI, weakness. Denies: headache, numbness, paresthesias Endocrine: Denies: fatigue, heat or cold intolerance Hematological/Lymphatic: Denies: easy bleeding, easy bruising Past Medical History - Past Medical History Medical history: Reports: asthma, COPD, kidney stones, renal disease, other Surgical history ED: Reports: other - Social History smoking status: Never smoker Alcohol use: Reports: None Drug use: Reports: none Physical Exam Limitations: altered mental status General appearance: alert, in no apparent distress, sleepy Head: atraumatic, normocephalic, normal inspection Eye: Present: normal appearance, PERRL, EOMI. Absent: scleral icterus, conjunctival injection ENT: Present: mucous membranes dry Neck: Present: normal inspection, full ROM. Absent: lymphadenopathy Chest: Present: normal inspection, symmetric chest wall rise Respiratory: Present: other (Lung sounds clear to auscultate with diminished bases bilaterally.). Absent: respiratory distress, accessory muscle use Cardiovascular: Present: regular rate, normal rhythm. Absent: systolic murmur, diastolic murmur Abdominal: Present: soft, normal bowel sounds. Absent: distention, tenderness Extremities: Present: full ROM, normal capillary refill, pedal edema (1+), pretibial edema (1+). Absent: tenderness, calf tenderness Back: Present: tenderness (lumbar and thoracic spine) Patient oriented to: Present: person Speech: Present: fluid speech Cranial nerves: EOM function (II, III, IV, ): Normal, facial sensation (V): Normal, facial palsy (VII): Normal, gag reflex (IX): Normal, spinal accessory function (XI): Normal, tongue deviation (XII): Normal Motor strength - LUE: 4/5 Motor strength - RUE: 4/5 Motor strength - LLE: 4/5 Motor strength - RLE: 4/5 Sensory exam upper extremity: Normal: light touch Sensory exam lower extremity: Normal: light touch Coma Scale Eye Opening: Spontaneous Coma Scale Motor Response: Obeys Commands Coma Scale Verbal Response: Confused Coma Scale Total: 14 Skin: Present: warm, dry, normal color Course - Reevaluation(s) Time: 22:00 (malt house loader, Reyna RODAS and administration of hospital is here at the bedside discussing with the patient's that she may be liable for payment upon admission to [facility].) Time: 22:25 (Spoke with Dr. Marlow this evening who will agree to place the patient into observation at [facility]. ) Vital Signs Temperature 98.2 F 10/19/19 18:21 Pulse Rate 69 10/19/19 18:21 Respiratory Rate 16 10/19/19 18:21 Blood Pressure 152/95 10/19/19 18:21 Pulse Oximetry (%) 94 10/19/19 18:21 Temperature 99.3 F H 01/19/20 06:14 Pulse Rate 78 10/20/19 08:19 Respiratory Rate 16 10/20/19 08:19 Blood Pressure 138/85 10/20/19 06:14 Pulse Oximetry (%) 93 10/20/19 08:14 Weakness - MDM Narrative Medical decision making narrative: Left hip x-ray was taken today for further evaluation of the patient's left hip pain. This shows mild degenerative changes. Chest x-ray today shows mild bibasilar atelectasis. No sign of pneumonia. Labs are rather unremarkable. ALT mildly elevated at 49. This is not a new finding. Patient does have back pain which is chronic. He did receive 1 dose of tramadol here in the emergency department for pain. His pain has been controlled. Patient has weakness with ground-level falls home in the past. Patient's today reports that she is unable to care for him at home. She is refusing to take him home today. I did speak with malt house loader, Priya RODAS today about the situation of family unwilling to take him home as they feel are unable to care for him. supervisor water softener service did contact Hospital administration who came in [facility] and they had discussed with the patient and family about hospitalization for observation and to try to coordinate placement at a care facility. Patient will be admitted observation for case management to coordinate transfer to assisted care facility. Patient would benefit from physical therapy and occupational therapy. He also will receive pain management, and would recommend to avoid sedated/hypnotic opioids as he has a history of having medication- induced delirium. Spoke with hospitalist, Dr. Marlow and patient will be admitted for observation with plan of discharge was able to care facility. - Lab Data Lab results reviewed: Yes I reviewed the patient's lab results. Result diagrams: 10/19/19 18:48 10/19/19 18:48 Lab Results 10/19/19 10/19/19 10/19/19 Range/Units 18:48 18:48 18:48 WBC 7.8 (4.50-11.00) K/mcL RBC 4.20 L (4.63-6.08) M/mcL Hgb 13.6 L (13.7-17.5) g/dL Hct 42.9 (40.1-51.0) % MCV 102.1 H (80.0-100.0) fL MCH 32.4 (26.0-34.0) pg MCHC 31.7 (31.0-36.0) g/dL RDW 12.9 (11.5-14.5) % Plt Count 266 (140-440) K/mcL MPV 9.7 (7.4-10.4) fL Gran % 73.5 (38.0-78.0) % Lymph % (Auto) 14.5 L (15.5-49.0) % Powell % (Auto) 10.8 (1.0-12.0) % Eos % (Auto) 0.9 (0.0-7.0) % Baso % (Auto) 0.3 (0.0-2.0) % Gran # 5.75 (1.80-8.00) K/mcL Lymph # (Auto) 1.13 L (1.50-4.80) K/mcL Powell # (Auto) 0.84 (0.10-0.90) K/mcL Eos # (Auto) 0.07 (0.00-0.70) K/mcL Baso # (Auto) 0.02 (0.00-0.30) K/mcL VBG Lactic Acid 1.4 (0.5-2.0) mmol/L Sodium 139 (133-145) mmol/L Potassium 3.8 (3.3-5.1) mmol/L Chloride 100 (96-108) mmol/L Carbon Dioxide 26 (22-30) mmol/L Anion Gap 13.0 (8-16) BUN 40 H (8-23) mg/dl Creatinine 0.9 (0.7-1.2) mg/dl GFR Calculation 76 Glucose 85 (70-105) mg/dL Calcium 9.0 (8.6-10.4) mg/dl Total Bilirubin 0.3 (0.0-1.0) mg/dL AST 34 (0-37) U/l ALT 49 H (0-40) U/l Alkaline Phosphatase 288 H (39-117) U/L Total Protein 6.4 (5.9-8.4) gm/dL Albumin 3.2 (3.2-5.2) gm/dL Globulin 3.2 (2.2-3.7) gm/dL Albumin/Globulin Ratio 1.0 (1.0-2.3) Urine Color Urine Appearance Urine pH (5.0-9.0) Ur Specific [place] (1.000-1.035) Urine Protein (NEG) mg/dL Urine Glucose (UA) (NEG) mg/dL Urine Ketones (NEG) mg/dL Urine Occult Blood (<0.03) mg/dL Urine Nitrate (NEG) Urine Bilirubin (NEG) mg/dL Urine Urobilinogen (NEG) mg/dL Ur Leukocyte Esterase (NEG) /uL Ur Culture Indicated? 10/19/19 Range/Units 19:19 WBC (4.50-11.00) K/mcL RBC (4.63-6.08) M/mcL Hgb (13.7-17.5) g/dL Hct (40.1-51.0) % MCV (80.0-100.0) fL MCH (26.0-34.0) pg MCHC (31.0-36.0) g/dL RDW (11.5-14.5) % Plt Count (140-440) K/mcL MPV (7.4-10.4) fL Gran % (38.0-78.0) % Lymph % (Auto) (15.5-49.0) % [place] % (Auto) (1.0-12.0) % Eos % (Auto) (0.0-7.0) % Baso % (Auto) (0.0-2.0) % Gran # (1.80-8.00) K/mcL Lymph # (Auto) (1.50-4.80) K/mcL [place] # (Auto) (0.10-0.90) K/mcL Eos # (Auto) (0.00-0.70) K/mcL Baso # (Auto) (0.00-0.30) K/mcL VBG Lactic Acid (0.5-2.0) mmol/L Sodium (133-145) mmol/L Potassium (3.3-5.1) mmol/L Chloride (96-108) mmol/L Carbon Dioxide (22-30) mmol/L Anion Gap (8-16) BUN (8-23) mg/dl Creatinine (0.7-1.2) mg/dl GFR Calculation Glucose (70-105) mg/dL Calcium (8.6-10.4) mg/dl Total Bilirubin (0.0-1.0) mg/dL AST (0-37) U/l ALT (0-40) U/l Alkaline Phosphatase (39-117) U/L Total Protein (5.9-8.4) gm/dL Albumin (3.2-5.2) gm/dL Globulin (2.2-3.7) gm/dL Albumin/Globulin Ratio (1.0-2.3) Urine Color Yellow Urine Appearance Clear Urine pH 6.0 (5.0-9.0) Ur Specific [place] 1.019 (1.000-1.035) Urine Protein Neg (NEG) mg/dL Urine Glucose (UA) Negative (NEG) mg/dL Urine Ketones Neg (NEG) mg/dL Urine Occult Blood Neg (<0.03) mg/dL Urine Nitrate Neg (NEG) Urine Bilirubin Neg (NEG) mg/dL Urine Urobilinogen 2.0 A (NEG) mg/dL Ur Leukocyte Esterase Neg (NEG) /uL Ur Culture Indicated? No Disposition Pt seen by DIETARY AIDE TEACHER/PA only: No Clinical Impression: Back pain, Generalized weakness Disposition: Xfer As Outpt/Obs ([facility]) Condition: Fair
[2019-10-19] MEDS ORDERED: IPRATROPIUM/ALBUTEROL 3 ML AMPUL.NEB NEB ONE (19:30)
[2019-10-19 19:41] LABS: Basophils # (Auto) 0.02 K/mcL (0.00-0.30); Basophils % (Auto) 0.3 % (0.0-2.0); Eosinophils # (Auto) 0.07 K/mcL (0.00-0.70); Eosinophils % (Auto) 0.9 % (0.0-7.0); Granulocytes % (Auto) 73.5 % (38.0-78.0); Hematocrit 42.9 % (40.1-51.0); Hemoglobin 13.6 g/dL (13.7-17.5); Lymphocytes # (Auto) 1.13 K/mcL (1.50-4.80); Lymphocytes % (Auto) 14.5 % (15.5-49.0); Mean Cell Volume 102.1 fL (80.0-100.0); Mean Corpuscular HGB Conc 31.7 g/dL (31.0-36.0); Mean Platelet Volume 9.7 fL (7.4-10.4); Monocytes # (Auto) 0.84 K/mcL (0.10-0.90); Monocytes % (Auto) 10.8 % (1.0-12.0); Platelet Count 266 K/mcL (140-440); Red Cell Distribution Width 12.9 % (11.5-14.5); WBC 7.8 K/mcL (4.50-11.00)
[2019-10-19 19:58] LABS: ALT/SGPT 49 U/l (0-40); AST/SGOT 34 U/l (0-37); Albumin 3.2 gm/dL (3.2-5.2); Alkaline Phosphatase 288 U/L (39-117); Bilirubin,Total 0.3 mg/dL (0.0-1.0); Blood Urea Nitrogen 40 mg/dl (8-23); Carbon Dioxide 26 mmol/L (22-30); Chloride 100 mmol/L (96-108); Globulin 3.2 gm/dL (2.2-3.7); Glomerular Filtration Rate 76; Glucose 85 mg/dL (70-105)
[2019-10-19] MEDS ORDERED: traMADol 50 MG TABLET PO ONE (20:06)
[2019-10-19 20:08] LABS: Appearance,Urine CLEAR; Bilirubin,Urine NEG (NEG); Color,Urine YELLOW; Culture Indicated,Urine NO; Glucose,Urine (UA) NEGATIVE (NEG); Ketones,Urine NEG (NEG); Leukocyte Esterase,Urine NEG /uL (NEG); Nitrate,Urine NEG (NEG); Protein,Urine NEG (NEG); Specific Gravity,Urine 1.019 (1.000-1.035); Urine Blood NEG mg/dL (<0.03)
[2019-10-20] MEDS: IPRATROPIUM/ALBUTEROL 3 ML AMPUL.NEB NEB PRN ×4 (02:51→21:27)
[2019-10-20] MEDS: BUDESONIDE 0.5 MG/2 ML AMPUL.NEB NEB SCH ×3 (02:51→21:27)
[2019-10-20] MEDS ORDERED: IPRATROPIUM/ALBUTEROL 3 ML AMPUL.NEB NEB ONE (04:04)
[2019-10-20] MEDS ORDERED: BUDESONIDE 0.5 MG/2 ML AMPUL.NEB NEB ONE (04:04)
[2019-10-20] MEDS: ACETAMINOPHEN 325 MG TABLET PO PRN (06:12)
--- NOTE | 2019-10-20 07:38 | XRay Report ---
CLINICAL INFORMATION: cough COMPARISON: 10/15/2019 FINDINGS: Mild cardiomegaly unchanged. Mild ectasia of thoracic aorta also stable. The remaining mediastinum and pulmonary vasculature are unremarkable. There is mild bibasilar atelectasis. IMPRESSION: Mild bibasilar atelectasis Interpreted and Authenticated by: Kemal Ornelas 10/20/19
--- NOTE | 2019-10-20 07:39 | XRay Report ---
CLINICAL INFORMATION: Trauma COMPARISON: 08/21/2017 FINDINGS: Mild degenerative changes both SI and hip joints stable. There is no fracture or other osseous abnormality. Soft tissues normal. IMPRESSION: Mild degeneration. Interpreted and Authenticated by: Kemal Ornelas 10/20/19
--- NOTE | 2019-10-20 08:41 | Internal Med History&Physical ---
Medical - H&P: [facility] Patient information: Note initiated : 10/19/19 at 23:37 pm Service Date, if different from initiated Date: [] Patient: Reginald Gonzales 89 y/o M admitted on 10/19/19 for Generalized weakness. Chief Complaint: [] Chief complaint: Weakness and inability of family to take care of patient History of present illness: Mr. 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 Patient's family has not been able to take care of him however during previous hospitalization patient did not meet inpatient acuity and hence was not able to transfer to assisted or penitentiary home. Patient was discharged on the Shortly thereafter patient's brought him to the ER due to inability to provide care due to 's physical limitation and severe weakness and lack of functionality requiring need for skilled care services. Evaluation in the ER was unremarkable except for evidence of mild dehydration. Patient was also rashmi luated [place] [address] normal [address] head. also expressed concern about his worsening back pain. Following evaluation patient was due to be discharged however was not agreeable to taking him back home and subsequently hospitalist service was consulted for admission until a safe discharge plan could be available During my evaluation patient is sitting on chair. Is alert and respond to commands. Denies active distress. Eating himself. Does endorse to backache. not available for further history. Patient denies headache, fever, dysuria or diarrhea. Review of systems A 10 point review system was performed and is negative except for one discussed above Medical - H&P: PMH Medical history: Solitary lung nodule (Chronic) Dyspnea on exertion (Chronic) Diplopia (Chronic) Multilevel vertebral fracture involving T4-L3 Upper respiratory infection (Acute) Asthma exacerbation (Acute) COPD (chronic obstructive pulmonary disease) (Chronic) Hypoxemia (Chronic) Dysphagia (Chronic) Cough (Acute) Osteopenia determined by x-ray (Chronic) Kidney stones (Chronic) Community acquired bacterial pneumonia (Acute) Rib pain on right side (Acute) History of COPD (Acute) Aspiration pneumonia (Acute 05/27/16) Past Surgical History (Last Reviewed 06/05/19 @ 16:38 by Kemal Crenshaw DO) History of hernia surgery (Chronic) Medical history: Reports: asthma, COPD, kidney stones, renal disease, other Surgical history ED: Reports: other - Social History smoking status: Never smoker Alcohol use: Reports: None Drug use: Reports: none Medical - H&P: Meds Home Medications Medication Instructions Recorded Confirmed Type Ferrous Sulfate [Slow Release Iron] 45 mg PO DAILY 05/25/16 10/20/19 History Multivitamin With [place] 3 1 cap PO DAILY 05/25/16 10/20/19 History albuterol sulfate 90 mcg/actuation 1 inh INHALATION Q6HP PRN #18 g 03/21/17 10/20/19 Rx aerosol inhaler Acetaminophen [Tylenol] 650 mg PO Q6HP PRN tab 03/12/18 10/20/19 Rx Docusate Sodium [Colace] 200 mg PO DAILY #100 cap 03/12/18 10/20/19 Rx Lactobacillus [Culturelle] 1 cap PO BID #100 cap 03/12/18 10/20/19 Rx Ondansetron [Zofran ODT] 4 mg SL Q6HP PRN tab 03/12/18 10/20/19 Rx Polyethylene Glycol 3350 [Miralax] 17 gm PO DAILYP PRN #30 packet 03/12/18 10/20/19 Rx Tamsulosin [Flomax] 0.4 mg PO QDAY #0 cap 03/12/18 10/20/19 Rx testosterone cream See Rx Instructions TOPICAL .apply 07/25/18 10/20/19 Rx 2 clicks #30 MDD 5mg /0.25mg fluticasone propionate 50 2 spray INTRANASAL QDAY #16 g 03/01/19 10/20/19 Rx mcg/actuation nasal spray,suspension budesonide-formoterol HFA 160 2 puff INHALATION BID #10.2 g 07/15/19 10/20/19 Rx mcg-4.5 mcg/actuation aerosol inhaler tiotropium bromide 1.25 2 puff INHALATION QDAY #4 g 07/15/19 10/20/19 Rx mcg/actuation mist for inhalation Lactulose [Cephulac] 30 gm PO QID oral.emerald 10/17/19 10/20/19 Rx Sennosides/Docusate Sodium [Senna 1 tab PO HS tab 10/17/19 10/20/19 Rx Plus Tablet] traMADol [Ultram] 50 mg PO Q4-6HP PRN #20 tab 10/17/19 10/20/19 Rx Allergies Allergy/AdvReac Type Severity Reaction Status Date / Time No Known Drug Allergies Allergy Verified 10/19/19 18:31 Medical - H&P: Exam - Constitutional Vitals: Temp Pulse Resp BP Pulse Ox 99.3 F H 78 16 138/85 93 10/20/19 06:14 10/20/19 08:19 10/20/19 08:19 10/20/19 06:14 10/20/19 08:14 General appearance: no acute distress Exam: Head normocephalic Oral cavity dry No ear nose discharge Neck no lymphadenopathy Eye movement symmetrical Sitting on chair S1-S2 regular rhythm ESM grade 1 Diminished breath sounds bases Abdomen soft nontender nondistended Lower extremity rojas bruising but no cyanosis clubbing or joint swelling or lymphedema Psych alert and respond to commands, cooperative Neuro moving all 4 extremities Medical - H&P: Reslt - Labs CBC & Chem 7: 10/19/19 18:48 10/19/19 18:48 Labs: Short CBC 10/19/19 Range/Units 18:48 WBC 7.8 (4.50-11.00) K/mcL Hgb 13.6 L (13.7-17.5) g/dL Hct 42.9 (40.1-51.0) % Plt Count 266 (140-440) K/mcL BMP 10/19/19 18:48 Sodium 139 Potassium 3.8 Chloride 100 Carbon Dioxide 26 BUN 40 H Creatinine 0.9 Glucose 85 Calcium 9.0 Liver Function 10/19/19 Range/Units 18:48 Total Bilirubin 0.3 (0.0-1.0) mg/dL AST 34 (0-37) U/l ALT 49 H (0-40) U/l Alkaline Phosphatase 288 H (39-117) U/L Albumin 3.2 (3.2-5.2) gm/dL Urine 10/19/19 Range/Units 19:19 Urine Color Yellow Urine Appearance Clear Urine pH 6.0 (5.0-9.0) Ur Specific [place] 1.019 (1.000-1.035) Urine Protein Neg (NEG) mg/dL Urine Glucose (UA) Negative (NEG) mg/dL Medical - H&P: A/P (1) Weakness Current visit: Yes Status: Acute * Severe weakness with ground-level falls-observation admit. Initiate aggressive gait and safety training/PT OT/ care facility placement as family unable to take care of patient * History of advanced dementia with intermittent delirium. Avoid sedative- hypnotics/opioids. Case management to coordinate transfer to assisted care facility. Currently at baseline * Back pain secondary to chronic vertebral fracture T4-L3, continue Tylenol/tramadol/local analgesics. * Advanced dementia/self-care deficits-at baseline * History of obstructive hydrocephalus status post FISHING FLO[employer] ASSEMBLER shunting by Dr. Medina neurosurgery. Shunt functioning * Recent sixth and seventh rib fractures -continue pain management/incentive spirometer use * History of COPD continue bronchodilators * CHIP stable * BPH restart tamsulosin * Full code * Prophylaxis heparin Plan * Observation admit * Gait safety eval/PT OT * Pain management * Discharge coordination to facility * Nutrition support * Prior medical condition management as above Medical - H&P: Qual - Stroke Symptom Onset Unknown: No - VTE Deep Vein Thrombosis/Pulmonary Embolism Present on Admission: No
[2019-10-20] MEDS ORDERED: BISACODYL 10 MG SUPP.RECT PR PRN (08:47)
[2019-10-20] MEDS ORDERED: traMADol 50 MG TABLET PO PRN (08:47)
[2019-10-20] MEDS ORDERED: POTASSIUM CHLORIDE 20 MEQ PACKET PO PRN (08:47)
[2019-10-20] MEDS ORDERED: HYDROcodone/APAP 5/325MG TABLET PO PRN (08:47)
[2019-10-20] MEDS ORDERED: ONDANSETRON 4 MG ODT TABLET SL PRN ×2 (08:47→10:18)
[2019-10-20] MEDS ORDERED: ACETAMINOPHEN 650 MG/65 ML BOTTLE IV PRN (08:47)
[2019-10-20] MEDS ORDERED: METOPROLOL TARTRATE 5 MG/5 ML VIAL IV PRN (08:47)
[2019-10-20] MEDS ORDERED: hydrALAZINE 20 MG/ML VIAL IV PRN (08:47)
[2019-10-20] MEDS ORDERED: POLYETHYLENE GLYCOL 3350 17 GM PACKET PO PRN (08:47)
[2019-10-20] MEDS ORDERED: ONDANSETRON 4 MG/2 ML VIAL IV PRN (08:47)
[2019-10-20] MEDS ORDERED: MELATONIN 3 MG TABLET PO PRN (08:47)
[2019-10-20] MEDS ORDERED: MAGNESIUM SULFATE 2 GM/50 ML BAG IV PRN (08:47)
[2019-10-20] MEDS ORDERED: ACETAMINOPHEN 325 MG TABLET PO PRN (08:47)
[2019-10-20] MEDS ORDERED: ALBUTEROL SULFATE 1 PUFF INHALER INH PRN (10:18)
--- NOTE | 2019-10-20 10:18 | Internal Med Progress Note ---
Medical - PN: Subj Patient information: Note initiated : 10/20/19 at 10:15 am Service Date, if different from initiated Date: [] Patient: Reginald Gonzales 89 y/o M admitted on 10/19/19 for Generalized weakness. Chief Complaint: [] Interval history: Mr. 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 Patient's family has not been able to take care of him however during previous hospitalization patient did not meet inpatient acuity and hence was not able to transfer to assisted or detention home. Patient was discharged on the Shortly thereafter patient's brought him to the ER due to inability to provide care due to 's physical limitation and severe weakness and lack of functionality requiring need for skilled care services. Evaluation in the ER was unremarkable except for evidence of mild dehydration. Patient was also evaluated [place] [address] normal [address] head. also expressed concern about his worsening back pain. Following evaluation patient was due to be discharged however was not agreeable to taking him back home and subsequently hospitalist service was consulted for admission until a safe discharge plan could be available During my evaluation patient is sitting on chair. Is alert and respond to commands. Denies active distress. Eating himself. Does endorse to backache. not available for further history. Patient denies headache, fever, dysuria or diarrhea. 10/20-doing well. No overnight events. No concerns per staff. No family bedside. Await case management coordination for facility transfer. - Constitutional Vitals: Vital Signs Temp Pulse Resp BP Pulse Ox 99.3 F H 78 16 138/85 93 10/20/19 06:14 10/20/19 08:19 10/20/19 08:19 10/20/19 06:14 10/20/19 08:14 Period Temp Pulse Resp BP Sys/Eduardo Pulse Ox Last 24 Hr 98.2 F-99.3 F 67-78 14-23 122-174/71-95 91-98 Intake and Output 10/19/19 10/20/19 10/20/19 21:59 05:59 13:59 Intake Total 1000 Output Total 450 Balance 1000 -450 Weight 156 lb 154 lb 3.2 oz Intake & Output: Intake & Output 10/19/19 10/20/19 10/20/19 21:59 05:59 13:59 Intake Total 1000 Output Total 450 Balance 1000 -450 Weight 156 lb 154 lb 3.2 oz Intake: IV 1000 Sodium Chloride 0.9% 1,000 ml @ 1000 Wide Open IV [facility] Rx#: [id number] Output: Void Amount 450 Other: Urine Appearance Clear Clear Urine Color Bright Yellow Bright Yellow Urine Odor Normal Normal Stool Size Moderate # Voids 1 General appearance: no acute distress Exam: Sitting on chair eating breakfast No anxiety Nonlabored breathing Medical - PN: Obj Da - Labs CBC & Chem 7: 10/19/19 18:48 10/19/19 18:48 Labs: Abnormal Lab Results 10/19/19 10/19/19 10/19/19 19:19 18:48 18:48 RBC 4.20 L Hgb 13.6 L MCV 102.1 H Lymph % (Auto) 14.5 L Lymph # (Auto) 1.13 L BUN 40 H ALT 49 H Alkaline Phosphatase 288 H Urine Urobilinogen 2.0 A Meds: Medications Acetaminophen (Tylenol) 650 mg PO Q6HP PRN PRN Reason: PAIN/FEVER > 101 Last Admin: 10/20/19 06:12 Dose: 650 mg Documented by: Acetaminophen (Tylenol) 650 mg PO Q4-6HP PRN; Protocol PRN Reason: Per Pain Protocol/Fever > 101 Hydrocodone Bitart/Acetaminophen ([place] 5/325mg) 0 tab PO Q4HP PRN; Protocol PRN Reason: Per Pain Protocol Albuterol/Ipratropium (Duoneb) 3 ml NEB Q4HP PRN PRN Reason: Shortness Of Breath Last Admin: 10/20/19 08:12 Dose: 3 ml Documented by: Bisacodyl (Dulcolax) 10 mg MD Q2-3DAYS PRN PRN Reason: Constipation Budesonide (Pulmicort) 0.5 mg NEB Q12 [facility] Last Admin: 10/20/19 08:13 Dose: Not Given Documented by: Cyanocobalamin (Vitamin B-12) 1,000 mcg PO BID [facility] Stop: 10/24/19 21:01 Docusate Sodium (Colace) 100 mg PO BID [facility] Folic Acid (Folic Acid) 1 mg PO DAILY [facility] Heparin Sodium (Porcine) (Heparin) 5,000 unit SQ Q12 [facility] Hydralazine HCl (Apresoline) 10 mg IV Q4-6HP PRN PRN Reason: Hypertension Sodium Chloride (Sodium Chloride 0.9%) 1,000 mls @ 35 mls/hr IV .Q24H [facility] Stop: 10/23/19 22:41 Acetaminophen (Ofirmev) 650 mg in 65 mls @ 130 mls/hr IV Q6HP PRN; Protocol PRN Reason: Per Pain Protocol/Fever > 101 Magnesium Sulfate (Magnesium Sulfate) 2 gm in 50 mls @ 50 mls/hr IV UD PRN PRN Reason: MG = or < 1.7 Iron Carb/Multivit/Proof Tester/Folic Acid (Multivitamin W/Minerals) 1 tab PO DAILY [facility] Melatonin (Melatonin 3mg Tablet) 3 mg PO HSP PRN PRN Reason: Insomnia Metoprolol Tartrate (Lopressor) 5 mg IV Q5M PRN PRN Reason: Heart Rate > 140 bpm Ondansetron HCl (Zofran Odt) 4 mg SL Q4-6HP PRN; Protocol PRN Reason: Nausea And Vomiting Ondansetron HCl (Zofran) 4 mg IV Q4-6HP PRN; Protocol PRN Reason: Nausea And Vomiting Polyethylene Glycol (Miralax) 17 gm PO DAILYP PRN PRN Reason: Constipation Potassium Chloride (Klor-Con) 40 meq PO DAILYP PRN PRN Reason: K+ < 3.5 Senna/Docusate Sodium (Senna Plus Tablet) 1 tab PO HS [facility] Sodium Chloride (Saline Flush) 10 ml IV Q8 [facility] Thiamine HCl (Vitamin B1) 100 mg PO DAILY [facility] Tramadol HCl (Ultram) 50 mg PO Q4-6HP PRN; Protocol PRN Reason: Per Pain Protocol Medical - PN: A/P - Time Spent With Patient Total time spent is greater than 50% in coordination of care (as documented) at patient's floor/unit and/or counseling patient: (1) Weakness Status: Acute Assessment and plan: * Severe weakness with ground-level falls-continue gait and safety training/PT OT/ care facility placement as family unable to take care of patient * History of advanced dementia -at baseline, continue delirium watch. * Back pain secondary to chronic vertebral fracture T4-L3, continue Tylenol/tramadol/local analgesics. 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 Medina neurosurgery. Shunt functioning * Recent sixth and seventh rib fractures secondary to fall- pain management/incentive spirometer use * History of COPD continue bronchodilators * CHIP stable * BPH continue tamsulosin * Full code * Prophylaxis heparin Plan * PT OT * Pain management * Discharge coordination to facility * Nutrition support * Prior medical condition management as above Current Visit: Yes Medical - PN: Qual - Stroke Symptom Onset Unknown: No - VTE Deep Vein Thrombosis/Pulmonary Embolism Present on Admission: No
[2019-10-20] MEDS: HEPARIN 5,000 UNIT/ML VIAL SQ SCH ×2 (12:11→21:44)
[2019-10-20] MEDS: LACTULOSE 20 GM/30 ML ORAL.SOL PO SCH ×3 (12:11→21:43)
[2019-10-20] MEDS: CYANOCOBALAMIN (VITAMIN B-12) 500 MCG TABLET PO SCH ×2 (12:12→21:44)
[2019-10-20] MEDS: THIAMINE 100 MG TABLET PO SCH (12:12)
[2019-10-20] MEDS: MULTIVIT,THER IRON,CA,FA & MIN 1 TABLET PO SCH (12:12)
[2019-10-20] MEDS: FOLIC ACID 1 MG TABLET PO SCH (12:13)
[2019-10-20] MEDS: DOCUSATE SODIUM 100 MG CAPSULE PO SCH ×2 (12:46→21:44)
[2019-10-20] MEDS: 0.9 % SODIUM CHLORIDE 1,000 ML IV SCH (13:08)
[2019-10-20] MEDS: 0.9 % SODIUM CHLORIDE 10 ML SYRINGE IV SCH ×2 (14:52→21:44)
[2019-10-20] MEDS: SENNOSIDES/DOCUSATE SODIUM 1 TAB TABLET PO SCH (21:44)
[2019-10-20] MEDS: LACTOBACILLUS 1 CAPSULE PO SCH (21:44)
[2019-10-20] MEDS: Budesonide/Formoterol Fumarate [Symbicort] 160-4.5 mcg Inhaler INH SCH (21:44)
[2019-10-21] MEDS: IPRATROPIUM/ALBUTEROL 3 ML AMPUL.NEB NEB PRN ×3 (02:21→20:23)
[2019-10-21] MEDS: 0.9 % SODIUM CHLORIDE 10 ML SYRINGE IV SCH ×3 (05:13→20:31)
[2019-10-21] MEDS: ACETAMINOPHEN 325 MG TABLET PO PRN ×2 (05:53→19:40)
[2019-10-21 07:15] LABS: Hematocrit 36.2 % (40.1-51.0); Hemoglobin 11.9 g/dL (13.7-17.5); Mean Corpuscular HGB Conc 32.9 g/dL (31.0-36.0); Mean Platelet Volume 9.5 fL (7.4-10.4); Platelet Count 254 K/mcL (140-440); RBC 3.62 M/mcL (4.63-6.08); Red Cell Distribution Width 12.7 % (11.5-14.5); WBC 11.6 K/mcL (4.50-11.00)
[2019-10-21 07:44] LABS: ALT/SGPT 64 U/l (0-40); AST/SGOT 44 U/l (0-37); Albumin/Globulin Ratio 1.1 (1.0-2.3); Alkaline Phosphatase 295 U/L (39-117); Bilirubin,Direct < 0.2 mg/dL (0.0-0.3); Bilirubin,Total 0.5 mg/dL (0.0-1.0); Calcium 8.3 mg/dl (8.6-10.4); Carbon Dioxide 25 mmol/L (22-30); Chloride 100 mmol/L (96-108); Globulin 2.7 gm/dL (2.2-3.7); Glomerular Filtration Rate 76; Glucose 99 mg/dL (70-105); Lactate Dehydrogenase 253 U/L (94-250); Triglycerides 64 mg/dl (<150)
[2019-10-21 07:48] LABS: Blood Urea Nitrogen 26 mg/dl (8-23); Phosphorous 2.9 mg/dL (2.7-4.5)
[2019-10-21] MEDS: LACTOBACILLUS 1 CAPSULE PO SCH ×2 (08:24→20:19)
[2019-10-21] MEDS: FOLIC ACID 1 MG TABLET PO SCH (08:24)
[2019-10-21] MEDS: TAMSULOSIN 0.4 MG CAPSULE PO SCH (08:24)
[2019-10-21] MEDS: LACTULOSE 20 GM/30 ML ORAL.SOL PO SCH ×5 (08:24→20:20)
[2019-10-21] MEDS: CYANOCOBALAMIN (VITAMIN B-12) 500 MCG TABLET PO SCH ×2 (08:24→20:19)
[2019-10-21] MEDS: THIAMINE 100 MG TABLET PO SCH (08:24)
[2019-10-21] MEDS: DOCUSATE SODIUM 100 MG CAPSULE PO SCH ×2 (08:24→20:19)
[2019-10-21] MEDS: HEPARIN 5,000 UNIT/ML VIAL SQ SCH ×2 (08:24→20:18)
[2019-10-21] MEDS: MULTIVIT,THER IRON,CA,FA & MIN 1 TABLET PO SCH (08:24)
[2019-10-21] MEDS ORDERED: DOCUSATE SODIUM 100 MG CAPSULE PO SCH (09:00)
[2019-10-21] MEDS: BUDESONIDE 0.5 MG/2 ML AMPUL.NEB NEB SCH ×2 (09:24→20:23)
[2019-10-21] MEDS: FLUTICASONE PROPIONATE SPRAY.NAS NS SCH (09:30)
[2019-10-21] MEDS: 0.9 % SODIUM CHLORIDE 1,000 ML IV SCH ×2 (09:31→15:01)
[2019-10-21] MEDS: Budesonide/Formoterol Fumarate [Symbicort] 160-4.5 mcg Inhaler INH SCH ×2 (09:31→20:19)
[2019-10-21 11:21] LABS: Eosinophils % (Manual) 1 % (0-7); Lymphocytes % 7 % (15-49); Macrocytosis 1+ (NONE SEEN); Monocytes % (Manual) 15 % (1-12); Platelet Estimate NORMAL (NORMAL); RBC Morphology ABNORM (NORMAL); Segmented Neutrophils % 77 % (38-78)
[2019-10-21] MEDS ORDERED: METHYL SALICYLATE TOPICAL PRN (12:38)
[2019-10-21] MEDS ORDERED: MENTHOL TOPICAL PRN (12:38)
[2019-10-21] MEDS: LIDOCAINE PATCH TOPICAL SCH (12:59)
[2019-10-21] MEDS: SENNOSIDES/DOCUSATE SODIUM 1 TAB TABLET PO SCH (20:19)
[2019-10-22] MEDS: ACETAMINOPHEN 325 MG TABLET PO PRN (01:52)
[2019-10-22] MEDS: IPRATROPIUM/ALBUTEROL 3 ML AMPUL.NEB NEB PRN ×3 (02:05→15:22)
[2019-10-22] MEDS: 0.9 % SODIUM CHLORIDE 10 ML SYRINGE IV SCH ×2 (04:03→13:24)
[2019-10-22 06:47] LABS: Hematocrit 36.5 % (40.1-51.0); Hemoglobin 11.8 g/dL (13.7-17.5); Mean Corpuscular HGB Conc 32.3 g/dL (31.0-36.0); Mean Platelet Volume 9.5 fL (7.4-10.4); Platelet Count 251 K/mcL (140-440); RBC 3.65 M/mcL (4.63-6.08); Red Cell Distribution Width 12.7 % (11.5-14.5); WBC 9.4 K/mcL (4.50-11.00)
[2019-10-22 07:22] LABS: Bilirubin,Direct < 0.2 mg/dL (0.0-0.3); Chloride 105 mmol/L (96-108)
[2019-10-22 07:23] LABS: ALT/SGPT 54 U/l (0-40); AST/SGOT 32 U/l (0-37); Albumin 2.6 gm/dL (3.2-5.2); Albumin/Globulin Ratio 0.9 (1.0-2.3); Alkaline Phosphatase 291 U/L (39-117); Bilirubin,Total 0.5 mg/dL (0.0-1.0); Blood Urea Nitrogen 22 mg/dl (8-23); Calcium 8.2 mg/dl (8.6-10.4); Carbon Dioxide 24 mmol/L (22-30); Glomerular Filtration Rate 84; Glucose 100 mg/dL (70-105); Lactate Dehydrogenase 247 U/L (94-250); Phosphorous 2.8 mg/dL (2.7-4.5); Triglycerides 51 mg/dl (<150)
[2019-10-22] MEDS: LACTULOSE 20 GM/30 ML ORAL.SOL PO SCH ×2 (08:48→13:18)
[2019-10-22] MEDS: HEPARIN 5,000 UNIT/ML VIAL SQ SCH (08:48)
[2019-10-22] MEDS: CYANOCOBALAMIN (VITAMIN B-12) 500 MCG TABLET PO SCH (08:49)
[2019-10-22] MEDS: TAMSULOSIN 0.4 MG CAPSULE PO SCH (08:50)
[2019-10-22] MEDS: LACTOBACILLUS 1 CAPSULE PO SCH (08:50)
[2019-10-22] MEDS: FOLIC ACID 1 MG TABLET PO SCH (08:50)
[2019-10-22] MEDS: DOCUSATE SODIUM 100 MG CAPSULE PO SCH (08:50)
[2019-10-22] MEDS: MULTIVIT,THER IRON,CA,FA & MIN 1 TABLET PO SCH (08:50)
[2019-10-22] MEDS: 0.9 % SODIUM CHLORIDE 1,000 ML IV SCH (08:50)
[2019-10-22] MEDS: THIAMINE 100 MG TABLET PO SCH (08:50)
[2019-10-22] MEDS: LIDOCAINE PATCH TOPICAL SCH (08:50)
[2019-10-22] MEDS: FLUTICASONE PROPIONATE SPRAY.NAS NS SCH (08:51)
[2019-10-22] MEDS: Budesonide/Formoterol Fumarate [Symbicort] 160-4.5 mcg Inhaler INH SCH (08:51)
[2019-10-22 08:59] LABS: Lymphocytes % 13 % (15-49); Monocytes % (Manual) 12 % (1-12); Platelet Estimate NORMAL (NORMAL); RBC Morphology NORMAL (NORMAL); Segmented Neutrophils % 75 % (38-78)
--- NOTE | 2019-10-22 09:24 | Internal Med Progress Note ---
Medical - PN: Subj Patient information: Note initiated : 10/21/19 at 9:21 am Service Date, if different from initiated Date: [] Patient: Reginald Gonzales 89 y/o M admitted on 10/19/19 for Generalized weakness. Chief Complaint: [] Interval history: Mr. 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 Patient's family has not been able to take care of him however during previous hospitalization patient did not meet inpatient acuity and hence was not able to transfer to assisted or [facility] home. Patient was discharged on the Shortly thereafter patient's brought him to the ER due to inability to provide care due to 's physical limitation and severe weakness and lack of functionality requiring need for skilled care services. Evaluation in the ER was unremarkable except for evidence of mild dehydration. Patient was also evaluated [place] 2 days ago with normal CT head. also expressed concern about his worsening back pain. Following evaluation patient was due to be discharged however was not agreeable to taking him back home and subsequently hospitalist service was consulted for admission until a safe discharge plan could be available During my evaluation patient is sitting on chair. Is alert and respond to c ommands. Denies active distress. Eating himself. Does endorse to backache. not available for further history. Patient denies headache, fever, dysuria or diarrhea. 10/20-doing well. No overnight events. No concerns per staff. No family bedside. Await case management coordination for facility transfer. 10/21-patient doing well. Ambulating with assistance and tolerating diet. No anxiety or agitation. Intermittent back pain. Stable. No family at bedside. Anticipate SNF transfer being coordinated by case management. - Constitutional Vitals: Vital Signs Temp Pulse Resp BP Pulse Ox 98.8 F 80 18 137/78 97 10/22/19 07:28 10/22/19 07:28 10/22/19 08:00 10/22/19 07:28 10/22/19 08:00 Period Temp Pulse Resp BP Sys/Eduardo Pulse Ox Last 24 Hr 97.7 F-98.8 F 69-87 16-22 122-151/68-86 93-97 Intake and Output 10/21/19 10/22/1920 21:59 05:59 13:59 Intake Total 1306 540 Output Total 1450 450 Balance -144 90 Weight 145 lb 8 oz Intake & Output: Intake & Output 10/21/19 10/22/19 10/22/19 21:59 05:59 13:59 Intake Total 1306 540 Output Total 1450 450 Balance -144 90 Weight 145 lb 8 oz Intake: IV 906 Sodium Chloride 0.9% 1,000 ml @ 906 35 mls/hr IV .Q24H [facility] Rx#: [id number] Oral 400 540 Output: Void Amount 1450 450 Other: Meal Lunch Nourishment/Supplement Percent of Meal Consumed 50% 100% Feeding Ability Needs Supervision Independent Urine Appearance Clear Urine Color Bright Yellow Urine Odor Normal Stool Size Smear Stool Color Brown Stool Consistency Soft General appearance: no acute distress Exam: Alert and respond to commands nonlabored breathing No anxiety Sitting on chair Medical - PN: Obj Da - Labs CBC & Chem 7: 10/22/19 05:35 10/22/19 05:35 Labs: Abnormal Lab Results 10/22/19 10/22/19 10/21/19 05:35 05:35 05:28 WBC RBC 3.65 L Hgb 11.8 L Hct 36.5 L MCV Lymph % (Auto) Lymph # (Auto) Lymphocytes % 13 L Monocytes % (Manual) RBC Morphology Macrocytosis BUN 26 H Calcium 8.2 L 8.3 L AST 44 H ALT 54 H 64 H Alkaline Phosphatase 291 H 295 H Lactate Dehydrogenase 253 H Total Protein 5.6 L 5.7 L Albumin 2.6 L 3.0 L Albumin/Globulin Ratio 0.9 L Urine Urobilinogen 10/21/19 10/19/19 10/19/19 05:28 19:19 18:48 WBC 11.6 H RBC 3.62 L Hgb 11.9 L Hct 36.2 L MCV Lymph % (Auto) Lymph # (Auto) Lymphocytes % 7 L Monocytes % (Manual) 15 H RBC Morphology Abnorm A Macrocytosis 1+ A BUN 40 H Calcium AST ALT 49 H Alkaline Phosphatase 288 H Lactate Dehydrogenase Total Protein Albumin Albumin/Globulin Ratio Urine Urobilinogen 2.0 A 10/19/19 18:48 WBC RBC 4.20 L Hgb 13.6 L Hct MCV 102.1 H Lymph % (Auto) 14.5 L Lymph # (Auto) 1.13 L Lymphocytes % Monocytes % (Manual) RBC Morphology Macrocytosis BUN Calcium AST ALT Alkaline Phosphatase Lactate Dehydrogenase Total Protein Albumin Albumin/Globulin Ratio Urine Urobilinogen Meds: Medications Acetaminophen (Tylenol) 650 mg PO Q4-6HP PRN; Protocol PRN Reason: Per Pain Protocol/Fever > 101 Last Admin: 10/22/19 08:49 Dose: 650 mg Documented by: Hydrocodone Bitart/Acetaminophen ([place] 5/325mg) 0 tab PO Q4HP PRN; Protocol PRN Reason: Per Pain Protocol Albuterol Sulfate (Ventolin) 1 puff INH Q6HP PRN PRN Reason: Dyspnea Albuterol/Ipratropium (Duoneb) 3 ml NEB Q4HP PRN PRN Reason: Shortness Of Breath Last Admin: 10/22/19 02:05 Dose: 3 ml Documented by: Bisacodyl (Dulcolax) 10 mg ND Q2-3DAYS PRN PRN Reason: Constipation Budesonide (Pulmicort) 0.5 mg NEB Q12 [facility] Last Admin: 10/21/19 20:23 Dose: 0.5 mg Documented by: Cyanocobalamin (Vitamin B-12) 1,000 mcg PO BID [facility] Stop: 10/24/19 21:01 Last Admin: 10/22/19 08:49 Dose: 1,000 mcg Documented by: Docusate Sodium (Colace) 100 mg PO BID [facility] Last Admin: 10/22/19 08:50 Dose: 100 mg Documented by: Fluticasone Propionate (Flonase) 2 spray NS QDAY [facility] Last Admin: 10/22/19 08:51 Dose: Not Given Documented by: Folic Acid (Folic Acid) 1 mg PO DAILY [facility] Last Admin: 10/22/19 08:50 Dose: 1 mg Documented by: Heparin Sodium (Porcine) (Heparin) 5,000 unit SQ Q12 [facility] Last Admin: 10/22/19 08:48 Dose: 5,000 unit Documented by: Hydralazine HCl (Apresoline) 10 mg IV Q4-6HP PRN PRN Reason: Hypertension Sodium Chloride (Sodium Chloride 0.9%) 1,000 mls @ 35 mls/hr IV .Q24H [facility] Stop: 10/23/19 22:41 Last Admin: 01/21/20 08:50 Dose: Not Given Documented by: Acetaminophen (Ofirmev) 650 mg in 65 mls @ 130 mls/hr IV Q6HP PRN; Protocol PRN Reason: Per Pain Protocol/Fever > 101 Last Infusion: 10/21/19 13:15 Dose: Infused Documented by: Magnesium Sulfate (Magnesium Sulfate) 2 gm in 50 mls @ 50 mls/hr IV UD PRN PRN Reason: MG = or < 1.7 Iron Carb/Multivit/Engagement Quality Consultant/Folic Acid (Multivitamin W/Minerals) 1 tab PO DAILY [facility] Last Admin: 10/22/19 08:50 Dose: 1 tab Documented by: Lactobacillus Rhamnosus (Culturelle) 1 cap PO BID [facility] Last Admin: 10/22/19 08:50 Dose: 1 cap Documented by: Lactulose (Cephulac) 30 gm PO QID [facility] Last Admin: 10/22/19 08:48 Dose: 30 gm Documented by: Lidocaine (Lidoderm) 1 patch TOPICAL DAILY@1000 [facility] Last Admin: 10/22/19 08:50 Dose: 1 patch Documented by: Melatonin (Melatonin 3mg Tablet) 3 mg PO HSP PRN PRN Reason: Insomnia Metoprolol Tartrate (Lopressor) 5 mg IV Q5M PRN PRN Reason: Heart Rate > 140 bpm Multi-Ingredient Ointment (Bengay) 1 dose TOPICAL QIDP PRN PRN Reason: Muscle Pain Ondansetron HCl (Zofran) 4 mg IV Q4-6HP PRN; Protocol PRN Reason: Nausea And Vomiting Ondansetron HCl (Zofran Odt) 4 mg SL Q6HP PRN PRN Reason: Nausea And Vomiting Budesonide/Formoterol Fumarate [Symbicort] 160-4.5 Mcg Inhaler 2 dose INH BID [facility] Last Admin: 10/22/19 08:51 Dose: Not Given Documented by: Tiotropium [employer] [place] [ Spiriva Respimat] Inhaler 2 dose INH QDAY [facility] Last Admin: 10/22/19 08:51 Dose: Not Given Documented by: Polyethylene Glycol (Miralax) 17 gm PO DAILYP PRN PRN Reason: Constipation Last Admin: 10/21/19 20:18 Dose: 17 gm Documented by: Potassium Chloride (Klor-Con) 40 meq PO DAILYP PRN PRN Reason: K+ < 3.5 Senna/Docusate Sodium (Senna Plus Tablet) 1 tab PO HS [facility] Last Admin: 10/21/19 20:19 Dose: 1 tab Documented by: Sodium Chloride (Saline Flush) 10 ml IV Q8 [facility] Last Admin: 10/22/19 04:03 Dose: Not Given Documented by: Tamsulosin HCl (Flomax) 0.4 mg PO QDAY [facility] Last Admin: 10/22/19 08:50 Dose: 0.4 mg Documented by: Thiamine HCl (Vitamin B1) 100 mg PO DAILY [facility] Last Admin: 10/22/19 08:50 Dose: 100 mg Documented by: Tramadol HCl (Ultram) 50 mg PO Q4-6HP PRN; Protocol PRN Reason: Per Pain Protocol Medical - PN: A/P - Time Spent With Patient Total time spent is greater than 50% in coordination of care (as documented) at patient's floor/unit and/or counseling patient: 15 - 24 minutes (1) Weakness Status: Acute Assessment and plan: * Severe weakness with ground-level falls-ongoing physical therapy/assisted mobility with continued gait and safety training/. Case management coordinating care facility placement as family unable to take care of patient * History of advanced dementia -at baseline * Back pain secondary to chronic vertebral fracture T4-L3, well controlled on Tylenol/tramadol/local analgesics. 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 Medina neurosurgery. Shunt functioning * Recent sixth and seventh rib fractures secondary to fall- pain management/incentive spirometer use * History of COPD continue bronchodilators * CHIP stable * BPH continue tamsulosin * Full code * Prophylaxis heparin Plan * Continue PT OT/assist with mobility and fall precautions * Continue pain management * Nutrition support * Prior medical condition management as above * Case management to coordinate discharge to care facility Current Visit: Yes Medical - PN: Qual - Stroke Symptom Onset Unknown: No - VTE Deep Vein Thrombosis/Pulmonary Embolism Present on Admission: No
[2019-10-22] MEDS: BUDESONIDE 0.5 MG/2 ML AMPUL.NEB NEB SCH (09:35)
--- NOTE | 2019-10-22 12:00 | Discharge Summary ---
Medical - DS: Prov Patient information: Note initiated : 10/22/19 at 11:57 am Service Date, if different from initiated Date: [] Patient: Reginald Gonzales 89 y/o M admitted on 10/19/19 for Generalized weakness. Chief Complaint: [] Date of admission: 10/19/19 23:58 Discharge date: 10/22/19 Primary care physician: Kemal Barone DO Consults: 10/19/19 Consult to Physician [CONS] Stat Comment: Consulting Provider: Ferdinand Hamilton Reason For Exam: Physician to Consult Medical - DS: Meds - Discharge Medications Active and Home Medications: Home Medications Ferrous Sulfate [Slow Release Iron] 45 mg PO DAILY 05/25/16 [History Confirmed 10/20/19 Last Taken 10/13/19 12:00] Multivitamin With [place] 3 1 cap PO DAILY 05/25/16 [History Confirmed 10/20/19 Last Taken 10/19/19 1 capsule] albuterol sulfate 90 mcg/actuation aerosol inhaler 1 inh INHALATION Q6HP PRN #18 g 03/21/17 [Rx Confirmed 10/20/19 Last Taken 10/19/19 1 Inhalation] Acetaminophen [Tylenol] 650 mg PO Q6HP PRN tab 03/12/18 [Rx Confirmed 10/20/19 Last Taken 10/13/19 14:00] Docusate Sodium [Colace] 200 mg PO DAILY #100 cap 03/12/18 [Rx Confirmed 10/20/19 Last Taken 10/08/19 08:00] Lactobacillus [Culturelle] 1 cap PO BID #100 cap 03/12/18 [Rx Confirmed 10/20/19 Last Taken 10/19/19 1 capsule] Ondansetron [Zofran ODT] 4 mg SL Q6HP PRN tab 03/12/18 [Rx Confirmed 10/20/19 Last Taken 10/08/19 08:00] Polyethylene Glycol 3350 [Miralax] 17 gm PO DAILYP PRN #30 packet 03/12/18 [Rx Confirmed 10/20/19 Last Taken 10/19/19 17 grams] Tamsulosin [Flomax] 0.4 mg PO QDAY #0 cap 03/12/18 [Rx Confirmed 10/20/19 Last Taken 10/08/19 08:00] testosterone cream See Rx Instructions TOPICAL .apply 2 clicks #30 MDD 5mg /0.25mg 07/25/18 [Rx Confirmed 10/20/19 Last Taken 10/13/19 2 clicks] fluticasone propionate 50 mcg/actuation nasal spray,suspension 2 spray INTRANASAL QDAY #16 g 03/01/19 [Rx Confirmed 10/20/19 Last Taken 10/19/19 2 Sprays] budesonide-formoterol HFA 160 mcg-4.5 mcg/actuation aerosol inhaler 2 puff INHALATION BID #10.2 g 07/15/19 [Rx Confirmed 10/20/19 Last Taken 10/19/19 2 Puffs] tiotropium bromide 1.25 mcg/actuation mist for inhalation 2 puff INHALATION QDAY #4 g 07/15/19 [Rx Confirmed 10/20/19 Last Taken 10/13/19 03:00] Lactulose [Cephulac] 30 gm PO QID oral.emerald 10/17/19 [Rx Confirmed 10/20/19 Last Taken Unknown] Sennosides/Docusate Sodium [Senna Plus Tablet] 1 tab PO HS tab 10/17/19 [Rx Confirmed 10/20/19 Last Taken 10/19/19 1 tab] traMADol [Ultram] 50 mg PO Q4-6HP PRN #20 tab 10/17/19 [Rx Confirmed 10/20/19 Last Taken Unknown] Medical - DS: Hosp Hospital Course: Discharge diagnosis * Severe weakness/deconditioning with ground-level falls-continue aggressive physical therapy/assisted mobility with continued gait and safety training at SNF. Discharging to [facility]. 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 * History of obstructive hydrocephalus status post [employer] shunting by Dr. Medina neurosurgery. Shunt functioning. * Recent sixth and seventh rib fractures secondary to fall-new as needed Tylenol/tramadol/incentive spirometer use to prevent hypostatic pneumonia * History of COPD continue bronchodilators * History of advanced dementia -monitor for delirium. Continue dementia care * CHIP stable * BPH continue tamsulosin Brief hospital course Mr. Gonzales is a 89 year old M with a known history of dementia, obstructive hydrocephalus status post CYLINDER [employer] shunt/COPD who was recently hospitalized for 4 days due to profound weakness and multiple ground-level falls. Patient's family has not been able to take care of him however during previous hospitalization patient did not meet inpatient acuity and hence was not able to transfer to assisted or fci home. Patient was discharged on the Shortly thereafter patient's brought him to the ER due to inability to provide care due to 's physical limitation and severe weakness and lack of functionality requiring need for skilled care services. Evaluation in the ER was unremarkable except for evidence of mild dehydration. Patient was also evaluated [facility] [address] normal [address] head. also expressed concern about his worsening back pain. Following evaluation patient was due to be discharged however was not agreeable to taking him back home and subsequently hospitalist service was consulted for admission until a safe discharge plan could be available During my evaluation patient is sitting on chair. Is alert and respond to commands. Denies active distress. Eating himself. Does endorse to backache. not available for further history. Patient denies headache, fever, dysuria or diarrhea. 10/20-doing well. No overnight events. No concerns per staff. No family bedside. Await case management coordination for facility transfer. 10/21-patient doing well. Ambulating with assistance and tolerating diet. No anxiety or agitation. Intermittent back pain. Stable. No family at bedside. Anticipate SNF transfer being coordinated by case management. 10/22-patient doing well. Transferring to [facility] care for continued posthospitalization rehab/management deconditioning/PT OT nutrition support. Discharge structures as below Discharge diagnosis: . - Time Spent with Patient Total time spent providing and/or coordinating discharge services: Greater than 30 minutes Medical - DS: Exam - Constitutional Vitals: Vital Signs Temp Pulse Pulse Resp BP Pulse Ox 10/22/19 11:07 97.3 F 83 22 115/73 96 10/22/19 09:44 73 16 10/22/19 09:36 96 10/22/19 08:00 18 97 10/22/19 07:28 98.8 F 80 16 137/78 97 10/22/19 04:17 97.9 F 87 20 151/86 95 10/21/19 23:10 97.7 F 80 18 122/68 97 10/21/19 20:30 81 22 10/21/19 20:04 20 10/21/19 18:54 98.5 F 69 20 132/77 94 10/21/19 15:45 98.2 F 75 16 128/76 95 10/21/19 12:00 98.2 F 70 18 130/77 94 Intake and Output 10/21/19 10/22/19 10/22/19 21:59 05:59 13:59 Intake Total 1306 540 Output Total 1450 450 Balance -144 90 Intake: IV 906 Sodium Chloride 0.9% 1,000 ml @ 906 35 mls/hr IV .Q24H SUSIE Rx#: [id number] Oral 400 540 Output: Void Amount 1450 450 Other: Meal Lunch Nourishment/Supplement Percent of Meal Consumed 50% 100% Feeding Ability Needs Supervision Independent Urine Appearance Clear Urine Color Bright Yellow Urine Odor Normal Stool Size Smear Stool Color Brown Stool Consistency Soft Weight 145 lb 8 oz Medical - DS: Data Labs on day of discharge: Labs from last 24 hours 10/22/19 10/22/19 05:35 05:35 WBC 9.4 RBC 3.65 L Hgb 11.8 L Hct 36.5 L MCV 100.0 MCH 32.3 MCHC 32.3 RDW 12.7 Plt Count 251 MPV 9.5 Total Counted 100 Seg Neutrophils % 75 Band Neutrophils % Not Reportable Lymphocytes % 13 L Monocytes % (Manual) 12 Platelet Estimate Normal RBC Morphology Normal Sodium 139 Potassium 3.7 Chloride 105 Carbon Dioxide 24 Anion Gap 10.0 BUN 22 Creatinine 0.7 GFR Calculation 84 Glucose 100 Uric Acid 3.0 Calcium 8.2 L Phosphorus 2.8 Magnesium 2.0 Total Bilirubin 0.5 Direct Bilirubin < 0.2 GGT 22 AST 32 ALT 54 H Alkaline Phosphatase 291 H Lactate Dehydrogenase 247 Total Protein 5.6 L Albumin 2.6 L Globulin 3.0 Albumin/Globulin Ratio 0.9 L Triglycerides 51 Preliminary micro results at discharge 10/19/19 19:16 Blood Culture - Preliminary Blood 10/19/19 18:48 Blood Culture - Preliminary Blood Medical - DS: A/P - Patient/Caregiver Discharge Instructions Activity: as per physical therapy Diet: Regular Diet Additional Instructions: Follow-up PCP in 5 days Continue aggressive PT OT/assisted mobility and fall watch Dementia care/delirium watch ST eval and treatment if indicated Continue high protein calorie supplements All meals on chair sitting upright at 90 degrees to prevent aspiration Return to ER if fever chills shortness of breath Continue diet and activity as advised Discussed importance of medication adherence Please review medication list with patient prior to discharge Please schedule follow-up with PCP/Providers prior to discharge and provide printouts - Problem Maintenance (1) Weakness Status: Acute - Follow up Plan Follow up with: Kemal Barone DO [Primary Care Provider] - Disposition: Xfer SNF Prognosis: Fair Rehab Potential: Fair I certify that the patient requires SNF services: Yes Overall status at discharge: patient is progressing back to baseline Medical - DS: Qual - VTE Deep Vein Thrombosis/Pulmonary Embolism Present on Admission: No
== END 2019-10-22 15:27 ==
LOC: ED 18:20 → MEDSUR 18:20
PROVIDERS: ADMIT Internal Medicine; ATTEND Internal Medicine

== ENCOUNTER 2020-01-29 14:27 | Inpatient (IN) ==
--- NOTE | 2020-01-29 15:26 | XRay Report ---
CLINICAL INFORMATION: fall, left hip pain COMPARISON: 10/19/2019 FINDINGS: Comminuted, mildly displaced fractures of the left superior and inferior pubic rami appreciated. There is also a nondisplaced fracture the right superior pubic ramus at the root. Moderate diffuse osteoporosis noted. There Cam configuration of both femoral head neck junction disposing to femoral acetabular impingement. Both SI and hip joint showing mild degeneration which is table. Moderate stool seen within the rectum. IMPRESSION: Moderately comminuted, mildly displaced fractures of the left superior and inferior rami. Nondisplaced fracture of the right superior pubic ramus Cam configuration both femoral head neck junction. Diffuse osteoporosis Interpreted and Authenticated by: Kemal Ornelas 01/29/20
[2020-01-29] MEDS ORDERED: HYDROmorphone 0.5 MG/0.5 ML SYRINGE IV PRN (15:38)
--- NOTE | 2020-01-29 16:39 | Emergency Department Note ---
Lower Extremity Injury HPI - General Chief Complaint: Extremity Injury, Lower Stated Complaint: fall left hip pain Time Seen by Provider: 01/29/20 14:35 Source: patient Mode of arrival: EMS Limitations: physical limitation, other - History of Present Illness HPI Narrative: 89-year-old male presents with left hip pain. Unable to walk or bear weight. States last night he kind of tripped and fell into a chair. States he just kind of landed hard on the chair and since has had left hip pain. He arrives with his . is demanding and difficult and not following COVID restrictions in the ER on arrival however eventually she did leave. She has called here multiple times since. States she is wants him to see Dr. Batista and we explained to her that Dr. Batista is not on-call, is Dr. Key. They deny that he hit his head. No loss of consciousness. No head, neck, or back pain. No home treatments. They do note he was recently treated for a respiratory infection and is taking amoxicillin right now. - Related Data Home Medications Medication Instructions Recorded Confirmed Multivitamin With [place] 3 1 cap PO DAILY 05/25/16 01/29/20 Previous Rx's Medication Instructions Recorded Acetaminophen [Tylenol] 650 mg PO Q6HP PRN tab 03/12/18 Docusate Sodium [Colace] 200 mg PO DAILY #100 cap 03/12/18 Lactobacillus [Culturelle] 1 cap PO BID #100 cap 03/12/18 Polyethylene Glycol 3350 [Miralax] 17 gm PO DAILYP PRN #30 packet 03/12/18 oxygen #1 ea 11/21/19 albuterol sulfate 90 mcg/actuation 1 inh INHALATION Q6HP PRN #18 g 11/25/19 aerosol inhaler budesonide-formoterol HFA 160 2 puff INHALATION BID #1 g 11/25/19 mcg-4.5 mcg/actuation aerosol inhaler tiotropium bromide 1.25 2 puff INHALATION QDAY PRN #1 g 11/25/19 mcg/actuation mist for inhalation ipratropium 0.5 mg-albuterol 3 mg 3 ml INHALATION Q3H PRN #180 ml 01/13/20 (2.5 mg base)/3 mL nebulization soln Amoxicillin 500 mg PO Q8H #30 cap 01/25/20 Allergies Allergy/AdvReac Type Severity Reaction Status Date / Time hydrocodone Allergy Unknown "Sick, Verified 11/25/19 11:19 can't move, went crazy" Review of Systems All systems ED: reviewed and negative except as stated. Past Medical History - Past Medical History [facility] Narrative: Medical History (Last Updated 11/14/19 @ 12:01 by Laurie Nunn) Shortness of breath (Acute) Compression fracture of T10 vertebra (Acute) Gallstones (Chronic) Compression fracture of T9 vertebra (Chronic) Altered level of consciousness (Chronic) Fall from slip, trip, or stumble (Chronic) Skin tear of elbow without complication (Chronic) Skin tear of forearm without complication (Chronic) Encounter for wound care (Chronic) Back pain (Chronic) Generalized weakness (Chronic) Constipation (Chronic) Weakness (Chronic) Confusion (Chronic) Recurrent falls (Chronic) Hydrocephalus in adult (Chronic) Atrial fibrillation by electrocardiography (Chronic) Disorder of epiglottis (Chronic) Shuffling gait (Chronic) Normal pressure hydrocephalus (Chronic) Parkinson disease (Chronic) COPD exacerbation (Chronic) Solitary lung nodule (Chronic) Dyspnea on exertion (Chronic) Diplopia (Chronic) Upper respiratory infection (Chronic) Asthma exacerbation (Chronic) Nephrolithiasis (Chronic) Urinary tract infection (Chronic) Chronic coughing (Chronic) Pneumonia (Chronic) Fecal impaction (Chronic) Urinary retention (Chronic) COPD (chronic obstructive pulmonary disease) (Chronic) Hypoxemia (Chronic) Dysphagia (Chronic) Cough (Chronic) Left shoulder pain (Chronic) Anemia (Chronic) Osteopenia determined by x-ray (Chronic) Kidney stones (Chronic) Community acquired bacterial pneumonia (Chronic) Rib pain on right side (Chronic) History of COPD (Chronic) Aspiration pneumonia (Chronic 05/27/16) Past Surgical History (Last Updated 11/14/19 @ 12:00 by Laurie Nunn) History of hernia surgery (Chronic) History of tonsillectomy and adenoidectomy (Chronic) History of ventriculoperitoneal shunting (Chronic ~08/06/19) Medical history: Reports: asthma, COPD, kidney stones, renal disease, other Surgical history ED: Reports: other - Social History smoking status: Never smoker Alcohol use: Reports: None Drug use: Reports: none Physical Exam Limitations: physical limitation, other General appearance: alert, other ([place], sleepy) Head: atraumatic, normocephalic, normal inspection Eye: Present: normal appearance. Absent: conjunctival injection ENT: Present: mucous membranes moist Neck: Present: normal inspection, full ROM, trachea midline. Absent: tenderness Chest: Present: symmetric chest wall rise Respiratory: Present: normal lung sounds bilaterally, other (Lung sounds s lightly diminished in the bases but otherwise clear. Moist cough present). Absent: respiratory distress, rales/crackles, accessory muscle use Cardiovascular: Present: regular rate, normal heart sounds Extremities: Present: normal inspection. Absent: full ROM (Greatly limited active and passive range of motion and diffuse tenderness to left hip with palpation.) Back: Present: normal inspection. Absent: vertebral tenderness Neurological: Present: alert Psychiatric: Present: flat affect Skin: Present: warm, dry, intact Course Course Narrative: This patient has been seen and admitted multiple times in the past and the always within 24 hours usually has him leave AMA whether is here or a correction facility. She states this time that she cannot handle him at home and so he is going to have to be admitted because he cannot bear weight and she cannot take care of him or manage his pain. Cari was family welfare social work professor involved, please see her note. At 16[address] I did speak with Dr[address] Key. States there is nothing that can be done surgically, etc. with a pelvic fracture and to just manage his pain. At 1740 I did speak with the hospitalist, Dr. Collazo who graciously accept this patient. He would like us to get a urine Vital Signs Temperature 98.9 F 01/29/20 14:29 Respiratory Rate 16 01/29/20 14:29 Blood Pressure 118/74 01/29/20 14:29 Pulse Oximetry (%) 94 01/29/20 14:29 Temperature 98.9 F 01/29/20 14:29 Pulse Rate 74 01/29/20 16:55 Respiratory Rate 18 01/29/20 16:55 Blood Pressure 120/79 01/29/20 16:55 Pulse Oximetry (%) 98 01/29/20 16:55 Extremity Injury, Lower - Lab Data Lab results reviewed: Yes I reviewed the patient's lab results. Result diagrams: 01/29/20 15:58 01/29/20 15:58 Lab Results 01/29/20 01/29/20 Range/Units 15:58 15:58 WBC 9.1 (4.50-11.00) K/mcL RBC 3.45 L (4.63-6.08) M/mcL Hgb 11.4 L (13.7-17.5) g/dL Hct 35.8 L (40.1-51.0) % MCV 103.8 H (80.0-100.0) fL MCH 33.0 (26.0-34.0) pg MCHC 31.8 (31.0-36.0) g/dL RDW 13.9 (11.5-14.5) % Plt Count 175 (140-440) K/mcL MPV 9.6 (7.4-10.4) fL Gran % 74.5 (38.0-78.0) % Lymph % (Auto) 8.9 L (15.5-49.0) % [place] % (Auto) 16.0 H (1.0-12.0) % Eos % (Auto) 0.4 (0.0-7.0) % Baso % (Auto) 0.2 (0.0-2.0) % Gran # 6.77 (1.80-8.00) K/mcL Lymph # (Auto) 0.81 L (1.50-4.80) K/mcL [place] # (Auto) 1.46 H (0.10-0.90) K/mcL Eos # (Auto) 0.04 (0.00-0.70) K/mcL Baso # (Auto) 0.02 (0.00-0.30) K/mcL Sodium 136 (133-145) mmol/L Potassium 4.6 (3.3-5.1) mmol/L Chloride 100 (96-108) mmol/L Carbon Dioxide 29 (22-30) mmol/L Anion Gap 7.0 L (8-16) BUN 34 H (8-23) mg/dl Creatinine 0.9 (0.7-1.2) mg/dl GFR Calculation 76 Glucose 100 (70-105) mg/dL Calcium 8.3 L (8.6-10.4) mg/dl Total Bilirubin 0.4 (0.0-1.0) mg/dL AST 22 (0-37) U/l ALT 33 (0-40) U/l Alkaline Phosphatase 254 H (39-117) U/L Total Protein 5.6 L (5.9-8.4) gm/dL Albumin 3.2 (3.2-5.2) gm/dL Globulin 2.4 (2.2-3.7) gm/dL Albumin/Globulin Ratio 1.3 (1.0-2.3) - Radiology Data Radiology results reviewed: Yes I reviewed the patient's radiology results. Disposition Pt seen by TAPE CUTTER/PA only: Yes Clinical Impression: Fall, Pelvic fracture, Unable to bear weight Disposition: Xfer As Outpt/Obs ([facility]) Condition: Fair Referrals: Kemal Barone DO [Primary Care Provider] - Time of Disposition: 15:57
[2020-01-29 16:46] LABS: Basophils # (Auto) 0.02 K/mcL (0.00-0.30); Basophils % (Auto) 0.2 % (0.0-2.0); Eosinophils # (Auto) 0.04 K/mcL (0.00-0.70); Eosinophils % (Auto) 0.4 % (0.0-7.0); Granulocytes % (Auto) 74.5 % (38.0-78.0); Hematocrit 35.8 % (40.1-51.0); Hemoglobin 11.4 g/dL (13.7-17.5); Lymphocytes # (Auto) 0.81 K/mcL (1.50-4.80); Lymphocytes % (Auto) 8.9 % (15.5-49.0); Mean Cell Volume 103.8 fL (80.0-100.0); Mean Corpuscular HGB Conc 31.8 g/dL (31.0-36.0); Mean Platelet Volume 9.6 fL (7.4-10.4); Monocytes # (Auto) 1.46 K/mcL (0.10-0.90); Platelet Count 175 K/mcL (140-440); RBC 3.45 M/mcL (4.63-6.08); Red Cell Distribution Width 13.9 % (11.5-14.5); WBC 9.1 K/mcL (4.50-11.00)
[2020-01-29 17:02] LABS: ALT/SGPT 33 U/l (0-40); AST/SGOT 22 U/l (0-37); Albumin 3.2 gm/dL (3.2-5.2); Albumin/Globulin Ratio 1.3 (1.0-2.3); Alkaline Phosphatase 254 U/L (39-117); Bilirubin,Total 0.4 mg/dL (0.0-1.0); Calcium 8.3 mg/dl (8.6-10.4); Carbon Dioxide 29 mmol/L (22-30); Chloride 100 mmol/L (96-108); Globulin 2.4 gm/dL (2.2-3.7); Glomerular Filtration Rate 76; Glucose 100 mg/dL (70-105)
[2020-01-29 17:04] LABS: Blood Urea Nitrogen 34 mg/dl (8-23)
--- NOTE | 2020-01-29 18:36 | Internal Med History&Physical ---
Medical - H&P: HPI Patient information: Note initiated : 01/29/20 at 6:32 pm Service Date, if different from initiated Date: [] Patient: Reginald Gonzales a 89 y/o M admitted on for fall left hip pain. Chief Complaint: [] Chief complaint: Hip pain History of present illness: Mr. 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 Patient is accompanied with his who has not been able to take care of him because of his symptoms. He is gotten progressively weak and unable to function. Patient work-up in the ER was consistent with pelvis fracture involving bilateral superior inferior pubic rami. Orthopedic was consulted and advised nonoperative conservative management. Subsequently hospitalist service consulted At the time evaluation patient is alert and able to answer some of the questions. No family members are present. He denies fever chills or lightheadedness dizziness. Endorses to trauma sustained while he tripped and landed on a hard chair. He denies losing consciousness, fever, bloody urine. Review of systems 10 point review system was performed and is negative except for ones cussed above Medical - H&P: PMH Medical history: Shortness of breath (Acute) Per patient's this is acutely worsened compared to his baseline. Vital signs stable and afebrile. 2 view chest x-ray, CBC, CMP, and procalcitonin. Doubt pneumonia, sepsis, or systemic infection clinically, but will reassess or treat if indicated by the above studies. Advised Chelsea to keep oxygen on the patient at all times. Titrate level to maintain O2 sats between 93 to 98%. Compression fracture of T10 vertebra (Acute) New finding on recent x-ray. DEXA scan ordered Follow-up with [facility] later today. Gallstones (Chronic) Compression fracture of T9 vertebra (Chronic) Status post recent vertebroplasty with [facility], requesting records. Altered level of consciousness (Chronic) Fall from slip, trip, or stumble (Chronic) Skin tear of elbow without complication (Chronic) Skin tear of forearm without complication (Chronic) Encounter for wound care (Chronic) Back pain (Chronic) Generalized weakness (Chronic) Constipation (Chronic) MiraLAX daily and Colace as needed Increase fluid intake Weakness (Chronic) Secondary to NPH Confusion (Chronic) Secondary to NPH and dementia Recurrent falls (Chronic) Secondary to NPH and weakness Very high fall risk. Needs full assist with all activities of daily living Admit to life care at group home facility Hydrocephalus in adult (Chronic) NPH Status post COMMERCIAL ANNOUNCER shunt [address] Osorio Continues to follow with Dr. Osorio Atrial fibrillation by electrocardiography (Chronic) Disorder of epiglottis (Chronic) After reported anesthetic complication in the with prolonged intubation, continues to have struggles with maintaining oral Shuffling gait (Chronic) Normal pressure hydrocephalus (Chronic) Parkinson disease (Chronic) COPD exacerbation (Chronic) Solitary lung nodule (Chronic) Dyspnea on exertion (Chronic) Diplopia (Chronic) Upper respiratory infection (Chronic) Asthma exacerbation (Chronic) Nephrolithiasis (Chronic) Urinary tract infection (Chronic) Chronic coughing (Chronic) Pneumonia (Chronic) Fecal impaction (Chronic) continue docusate stool softner and miralax increase activity. Talk to your physician about referral for colonoscopy Urinary retention (Chronic) cont flomax. avoid constipation COPD (chronic obstructive pulmonary disease) (Chronic) Asthma/COPD Managed by Dr. Villatoro Restart Symbicort, Spiriva Continue albuterol Continue IS use at home Hypoxemia (Chronic) Dysphagia (Chronic) Cough (Chronic) Left shoulder pain (Chronic) Anemia (Chronic) Normocytic. History of iron overload. No evidence of GI bleeding, per family. Check iron studies Monitor CBCs Osteopenia determined by x-ray (Chronic) Kidney stones (Chronic) Community acquired bacterial pneumonia (Chronic) Rib pain on right side (Chronic) History of COPD (Chronic) Aspiration pneumonia (Chronic 05/27/16) Surgical History History of hernia surgery (Chronic) 1986 History of tonsillectomy and adenoidectomy (Chronic) History of ventriculoperitoneal shunting (Chronic ~08/06/19) Dr. Robertson Social History marital status: to [place] smoking status: Never smoker alcohol intake frequency: holiday/special occasion only substance use type: does not use Lives at home Medical - H&P: Meds Home Medications Medication Instructions Recorded Confirmed Type Multivitamin With Peak 3 1 cap PO DAILY 05/25/16 01/29/20 History Acetaminophen [Tylenol] 650 mg PO Q6HP PRN tab 03/12/18 01/29/20 Rx Docusate Sodium [Colace] 200 mg PO DAILY #100 cap 03/12/18 01/29/20 Rx Lactobacillus [Culturelle] 1 cap PO BID #100 cap 03/12/18 01/29/20 Rx Polyethylene Glycol 3350 [Miralax] 17 gm PO DAILYP PRN #30 packet 03/12/18 01/29/20 Rx albuterol sulfate 90 mcg/actuation 1 inh INHALATION Q6HP PRN #18 g 11/25/19 01/29/20 Rx aerosol inhaler budesonide-formoterol HFA 160 2 puff INHALATION BID #1 g 11/25/19 01/29/20 Rx mcg-4.5 mcg/actuation aerosol inhaler tiotropium bromide 1.25 2 puff INHALATION QDAY PRN #1 g 11/25/19 01/29/20 Rx mcg/actuation mist for inhalation ipratropium 0.5 mg-albuterol 3 mg 3 ml INHALATION Q3H PRN #180 ml 01/13/20 01/29/20 Rx (2.5 mg base)/3 mL nebulization soln Amoxicillin 500 mg PO Q8H #30 cap 01/25/20 01/29/20 Rx oxygen 2 lf NARES HS 01/29/20 01/29/20 History Allergies Allergy/AdvReac Type Severity Reaction Status Date / Time hydrocodone Allergy Unknown "Sick, Verified 11/25/19 11:19 can't move, went crazy" Medical - H&P: Exam - Constitutional Vitals: Temp Pulse Resp BP Pulse Ox 98.9 F 74 18 120/79 98 01/29/20 14:29 01/29/20 16:55 01/29/20 16:55 01/29/20 16:55 01/29/20 16:55 General appearance: moderate distress (Hip pain) Exam: Alert and respond to commands, mild expressive aphasia Head normocephalic Oral cavity dry No ear nose discharge Neck no lymphadenopathy Eye movement symmetrical Sitting on chair S1-S2 occasionally irregular. Diminished breath sounds bases Abdomen soft nontender Lower extremity no cyanosis clubbing or joint swelling or lymphedema . Restricted passive range of motion lower extremity Psych alert and respond to commands, cooperative Neuro responds to command alert and oriented Medical - H&P: Reslt - Labs CBC & Chem 7: 01/30/20 05:20 01/30/20 05:20 Labs: Short CBC 01/29/20 Range/Units 15:58 WBC 9.1 (4.50-11.00) K/mcL Hgb 11.4 L (13.7-17.5) g/dL Hct 35.8 L (40.1-51.0) % Plt Count 175 (140-440) K/mcL BMP 01/29/20 15:58 Sodium 136 Potassium 4.6 Chloride 100 Carbon Dioxide 29 BUN 34 H Creatinine 0.9 Glucose 100 Calcium 8.3 L Liver Function 01/29/20 Range/Units 15:58 Total Bilirubin 0.4 (0.0-1.0) mg/dL AST 22 (0-37) U/l ALT 33 (0-40) U/l Alkaline Phosphatase 254 H (39-117) U/L Albumin 3.2 (3.2-5.2) gm/dL Medical - H&P: A/P (1) Pelvic fracture Current visit: Yes Status: Acute * Bilateral pubic rami pelvis fracture-admitted inpatient. Continue directed therapies. * Pain management on as needed opioids * Severe weakness/deconditioning continue PT /assisted mobility with continued gait and safety * Mild hypoxia. Supplemental oxygen, possibly secondary to pain medication induced hypoventilation. 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 * History of obstructive hydrocephalus status post COMMERCIAL [employer]OUNCER shunting by Dr. Medina neurosurgery. Shunt functioning. * History of COPD continue bronchodilators * History of advanced dementia -monitor for delirium. Continue dementia care * CHIP stable * BPH continue tamsulosin * Prophylax Heparin Plan * Inpatient admission * Pain management * Pre-existing mental condition management home meds * Maintain fall risk/dementia watch * PT OT nutrition support * Discharge planning per case management
[2020-01-29 19:32] LABS: Appearance,Urine HAZY; Bilirubin,Urine NEG (NEG); Color,Urine YELLOW; Culture Indicated,Urine NO; Glucose,Urine (UA) NEGATIVE (NEG); Ketones,Urine NEG (NEG); Leukocyte Esterase,Urine NEG /uL (NEG); Nitrate,Urine NEG (NEG); Protein,Urine NEG (NEG); Specific Gravity,Urine 1.017 (1.000-1.035); Urine Blood NEG mg/dL (<0.03); Urobilinogen,Urine NEG (NEG)
[2020-01-29] MEDS ORDERED: HYDROmorphone* 2 MG/ML VIAL IV ONE (19:54)
[2020-01-29] MEDS ORDERED: SPIRIVA RESPIMAT PRN (20:45)
[2020-01-29] MEDS ORDERED: ALBUTEROL SULFATE 200 PUFF INHALER INH PRN (20:45)
[2020-01-29] MEDS ORDERED: ONDANSETRON 4 MG ODT TABLET SL PRN (20:45)
[2020-01-29] MEDS ORDERED: MAGNESIUM SULFATE 2 GM/50 ML BAG IV PRN (20:45)
[2020-01-29] MEDS ORDERED: ACETAMINOPHEN 325 MG TABLET PO PRN ×2 (20:45)
[2020-01-29] MEDS ORDERED: BISACODYL 10 MG SUPP.RECT PR PRN (20:45)
[2020-01-29] MEDS ORDERED: POTASSIUM CHLORIDE 20 MEQ PACKET PO PRN (20:45)
[2020-01-29] MEDS ORDERED: MELATONIN 3 MG TABLET PO PRN (20:45)
[2020-01-29] MEDS ORDERED: POLYETHYLENE GLYCOL 3350 17 GM PACKET PO PRN ×2 (20:45)
[2020-01-29] MEDS ORDERED: IPRATROPIUM/ALBUTEROL 3 ML AMPUL.NEB NEB PRN (20:45)
[2020-01-29] MEDS ORDERED: ONDANSETRON 4 MG/2 ML VIAL IV PRN (20:45)
[2020-01-29] MEDS: SENNOSIDES/DOCUSATE SODIUM 1 TAB TABLET PO SCH (22:22)
[2020-01-29] MEDS: DOCUSATE SODIUM 100 MG CAPSULE PO SCH (22:22)
[2020-01-29] MEDS: LACTOBACILLUS 1 CAPSULE PO SCH (22:22)
[2020-01-29] MEDS: AMOXICILLIN 250 MG CAPSULE PO SCH (22:22)
[2020-01-29] MEDS: HEPARIN 5,000 UNIT/ML VIAL SQ SCH (22:22)
[2020-01-29] MEDS: SYMBICORT INH SCH (22:23)
[2020-01-29] MEDS: 0.9 % SODIUM CHLORIDE 10 ML SYRINGE IV SCH (22:24)
[2020-01-30] MEDS: traMADol 50 MG TABLET PO PRN ×2 (00:02→04:44)
[2020-01-30] MEDS: HYDROmorphone 0.5 MG/0.5 ML SYRINGE IV PRN ×2 (00:30→06:03)
[2020-01-30] MEDS: 0.9 % SODIUM CHLORIDE 10 ML SYRINGE IV SCH ×3 (06:03→20:35)
[2020-01-30] MEDS: AMOXICILLIN 250 MG CAPSULE PO SCH (06:03)
[2020-01-30 06:13] LABS: Hematocrit 37.1 % (40.1-51.0); Hemoglobin 11.7 g/dL (13.7-17.5); Mean Cell Volume 102.8 fL (80.0-100.0); Mean Corpuscular HGB Conc 31.5 g/dL (31.0-36.0); Mean Platelet Volume 9.7 fL (7.4-10.4); Platelet Count 167 K/mcL (140-440); RBC 3.61 M/mcL (4.63-6.08); Red Cell Distribution Width 13.6 % (11.5-14.5); WBC 10.9 K/mcL (4.50-11.00)
[2020-01-30 06:34] LABS: ALT/SGPT 31 U/l (0-40); AST/SGOT 23 U/l (0-37); Albumin 3.2 gm/dL (3.2-5.2); Albumin/Globulin Ratio 1.2 (1.0-2.3); Alkaline Phosphatase 258 U/L (39-117); Bilirubin,Direct < 0.2 mg/dL (0.0-0.3); Bilirubin,Total 0.7 mg/dL (0.0-1.0); Blood Urea Nitrogen 31 mg/dl (8-23); Calcium 8.4 mg/dl (8.6-10.4); Carbon Dioxide 28 mmol/L (22-30); Chloride 102 mmol/L (96-108); Globulin 2.7 gm/dL (2.2-3.7); Glomerular Filtration Rate 80; Glucose 108 mg/dL (70-105); Lactate Dehydrogenase 279 U/L (94-250); Phosphorous 3.5 mg/dL (2.7-4.5); Triglycerides 60 mg/dl (<150); Uric Acid 3.5 mg/dL (2.5-8.0)
[2020-01-30 08:03] LABS: Eosinophils % (Manual) 3 % (0-7); Lymphocytes % 19 % (15-49); Macrocytosis 1+ (NONE SEEN); Monocytes % (Manual) 12 % (1-12); Platelet Estimate NORMAL (NORMAL); RBC Morphology ABNORM (NORMAL); Segmented Neutrophils % 66 % (38-78)
[2020-01-30] MEDS ORDERED: DOCUSATE SODIUM 100 MG CAPSULE PO SCH (09:00)
--- NOTE | 2020-01-30 09:03 | Internal Med Progress Note ---
Medical - PN: Subj Patient information: Note initiated : 01/30/20 at 9:00 am Service Date, if different from initiated Date: [] Patient: Reginald Gonzales 89 y/o M admitted on 01/29/20 for fall left hip pain. Chief Complaint: [] Interval history: Mr. 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 Patient is accompanied with his who has not been able to take care of him because of his symptoms. He is gotten progressively weak and unable to function. Patient work-up in the ER was consistent with pelvis fracture involving bilateral superior inferior pubic rami. Orthopedic was consulted and advised nonoperative conservative management. Subsequently hospitalist service consulted At the time evaluation patient is alert and able to answer some of the questions. No family members are present. He denies fever chills or lightheadedness dizziness. Endorses to trauma sustained while he tripped and landed on a hard chair. He denies losing consciousness, fever, bloody urine. 01/29-patient sitting at the edge of bed, intermittently confused. On 2 L oxygen. X-ray chest pending. Afebrile. White count 10,000. Pain well controlled. Continue therapies/nutrition support. Case management coordinate discharge planning. Concern was raised by staff about patient's not following COVID restrictions and visitation policies. - Constitutional Vitals: Vital Signs Temp Pulse Resp BP Pulse Ox 97.7 F 96 H 22 110/76 95 01/30/20 08:23 01/30/20 08:23 01/30/20 08:23 01/30/20 08:23 01/30/20 08:59 Period Temp Pulse Resp BP Sys/Eduardo Pulse Ox Last 24 Hr 97.7 F-98.9 F 72-96 16-28 110-150/65-89 84-98 Intake and Output 01/29/20 01/30/20 01/30/20 21:59 05:59 13:59 Intake Total 0 Output Total 400 300 Balance -400 -300 Weight 138 lb 12.8 oz Intake & Output: Intake & Output 01/29/20 01/30/20 01/30/20 21:59 05:59 13:59 Intake Total 0 Output Total 400 300 Balance -400 -300 Weight 138 lb 12.8 oz Intake: Oral 0 Output: Urine Catheter Amount 400 300 Other: Urine Appearance Clear Clear Uretheral (Matta) Clear Urine Color Bright Yellow Dark Yellow Uretheral (Matta) Bright Yellow Urine Odor Normal Strong Uretheral (Matta) Normal General appearance: no acute distress Exam: Minimally labored breathing Confused No anxiety Nondistended abdomen Medical - PN: Obj Da - Labs CBC & Chem 7: 01/30/20 05:20 01/30/20 05:20 Labs: Abnormal Lab Results 01/30/20 01/30/20 01/29/20 05:20 05:20 15:58 RBC 3.61 L Hgb 11.7 L Hct 37.1 L MCV 102.8 H Lymph % (Auto) [place] % (Auto) Lymph # (Auto) [place] # (Auto) RBC Morphology Abnorm A Macrocytosis 1+ A Anion Gap 7.0 L BUN 31 H 34 H Glucose 108 H Calcium 8.4 L 8.3 L Alkaline Phosphatase 258 H 254 H Lactate Dehydrogenase 279 H Total Protein 5.6 L 01/29/20 15:58 RBC 3.45 L Hgb 11.4 L Hct 35.8 L MCV 103.8 H Lymph % (Auto) 8.9 L [place] % (Auto) 16.0 H Lymph # (Auto) 0.81 L [place] # (Auto) 1.46 H RBC Morphology Macrocytosis Anion Gap BUN Glucose Calcium Alkaline Phosphatase Lactate Dehydrogenase Total Protein Meds: Medications Acetaminophen (Tylenol) 650 mg PO Q4-6HP PRN; Protocol PRN Reason: Per Pain Protocol/Fever > 101 Albuterol Sulfate (Ventolin) 1 puff INH Q6HP PRN PRN Reason: Dyspnea Albuterol/Ipratropium (Duoneb) 3 ml NEB Q3HP PRN PRN Reason: shortness of breath or wheezing Bisacodyl (Dulcolax) 10 mg [place] Q2-3DAYS PRN PRN Reason: Constipation Docusate Sodium (Colace) 100 mg PO BID [facility] Last Admin: 01/29/20 22:22 Dose: 100 mg Documented by: Heparin Sodium (Porcine) (Heparin) 5,000 unit SQ Q12 [facility] Last Admin: 01/29/20 22:22 Dose: 5,000 unit Documented by: Hydromorphone HCl (Dilaudid) 0 mg IV Q4HP PRN; Protocol PRN Reason: Per Pain Protocol Last Admin: 01/30/20 06:03 Dose: 0.5 mg Documented by: Acetaminophen (Ofirmev) 650 mg in 65 mls @ 130 mls/hr IV Q6HP PRN; Protocol PRN Reason: Per Pain Protocol/Fever > 101 Magnesium Sulfate (Magnesium Sulfate) 2 gm in 50 mls @ 50 mls/hr IV UD PRN PRN Reason: MG = or < 1.7 Iron Carb/Multivit/[place]/Folic Acid (Multivitamin W/Minerals) 1 tab PO DAILY [facility] Lactobacillus Rhamnosus (Culturelle) 1 cap PO BID [facility] Last Admin: 01/29/20 22:22 Dose: 1 cap Documented by: Melatonin (Melatonin 3mg Tablet) 3 mg PO HSP PRN PRN Reason: Insomnia Ondansetron HCl (Zofran Odt) 4 mg SL Q4-6HP PRN; Protocol PRN Reason: Nausea And Vomiting Ondansetron HCl (Zofran) 4 mg IV Q4-6HP PRN; Protocol PRN Reason: Nausea And Vomiting [Symbicort 160-4.5 2 dose INH BID [facility] Last Admin: 01/29/20 22:23 Dose: Not Given Documented by: [Spiriva Respimat (Inh) 2 dose INH QDAY PRN PRN Reason: wheezing Polyethylene Glycol (Miralax) 17 gm PO DAILYP PRN PRN Reason: Constipation Potassium Chloride (Klor-Con) 40 meq PO DAILYP PRN PRN Reason: K+ < 3.5 Senna/Docusate Sodium (Senna Plus Tablet) 1 tab PO HS [facility] Last Admin: 01/29/20 22:22 Dose: 1 tab Documented by: Sodium Chloride (Saline Flush) 10 ml IV Q8 [facility] Last Admin: 01/30/20 06:03 Dose: 10 ml Documented by: Tramadol HCl (Ultram) 50 mg PO Q4-6HP PRN; Protocol PRN Reason: Per Pain Protocol Last Admin: 01/30/20 04:44 Dose: 50 mg Documented by: Medical - PN: A/P - Time Spent With Patient Total time spent is greater than 50% in coordination of care (as documented) at patient's floor/unit and/or counseling patient: 25 - 35 minutes (1) Pelvic fracture Status: Acute Assessment and plan: * Bilateral pubic rami pelvis fracture-continue aggressive pain management/mobilization per PT. * Hypoxia is possibly secondary to aspiration. Minimize opioid use. 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 Medina . * History of COPD continue bronchodilators * History of advanced dementia -continue monitoring for delirium. * CHIP stable * BPH continue tamsulosin * Prophylax Heparin Plan * Continue multimodal pain management * Pre-existing medical condition management home meds * Maintain fall risk/dementia watch * PT OT nutrition support * Discharge planning per case management Current Visit: Yes Medical - PN: Qual - Stroke Symptom Onset Unknown: No - VTE Deep Vein Thrombosis/Pulmonary Embolism Present on Admission: No
[2020-01-30] MEDS: DOCUSATE SODIUM 100 MG CAPSULE PO SCH ×2 (09:29→21:00)
[2020-01-30] MEDS: SYMBICORT INH SCH ×2 (09:30→21:00)
[2020-01-30] MEDS: MULTIVIT,THER IRON,CA,FA & MIN 1 TABLET PO SCH (09:30)
[2020-01-30] MEDS: LACTOBACILLUS 1 CAPSULE PO SCH ×2 (09:30→21:00)
[2020-01-30] MEDS ORDERED: IPRATROPIUM/ALBUTEROL 3 ML AMPUL.NEB NEB ONE (09:35)
[2020-01-30] MEDS: HEPARIN 5,000 UNIT/ML VIAL SQ SCH ×2 (09:38→20:55)
--- NOTE | 2020-01-30 10:06 | XRay Report ---
CLINICAL INFORMATION: Hypoxia COMPARISON: 01/25/2020 FINDINGS: Heart size, mediastinum and pulmonary vessels are normal. Small right basilar infiltrate is unchanged. No effusion. A few right lower rib fractures as before IMPRESSION: Small right basilar infiltrate Interpreted and Authenticated by: Kemal Ornelas 01/30/20
[2020-01-30] MEDS: LIDOCAINE PATCH TOPICAL SCH (13:12)
[2020-01-30] MEDS: ACETAMINOPHEN 650 MG/65 ML BOTTLE IV PRN ×2 (13:21→20:53)
--- NOTE | 2020-01-30 14:11 | Cat Scan Report ---
CLINICAL INFORMATION: Trauma COMPARISON: Abdomen and pelvic CT five days prior 01/25/2020. TECHNIQUE: 0.625mm helical slices were obtained from the mid L4 through the subtrochanteric regions. Following reconstruction, 2.5 mm sagittal, coronal and axial reformations were processed. The exam was reviewed in bone and soft tissue windows. The exam was performed using radiation dose optimization techniques including, but not limited to, automated exposure control, adjustment of mA and/or kV according to patient size and use of iterative reconstruction technique. FINDINGS: Obliquely oriented mildly comminuted minimally displaced fractures through the left superior and inferior pubic ramus are new from the CT five days ago. There are is no evidence of acetabular involvement. Both hips including femoral head/neck and proximal diaphyses are normal. Mild sclerosis in the femoral heads seen as before. The SI joints show minimal degeneration. Soft tissue windows a Matta catheter properly placed in urinary bladder which decompressed. Moderate stool present within the rectum. The remaining visualized large bowel, small bowel and appendix are normal. No free air or adenopathy. Small amount of edema is noted in the musculature of the left hemipelvis IMPRESSION: 1. Oblique, minimally displaced acute fractures of the left superior and inferior pubic rami. These are typically managed conservatively. 2. Moderate rectal stool r Interpreted and Authenticated by: Kemal Ornelas 01/30/20
--- NOTE | 2020-01-30 14:37 | Internal Med Progress Note ---
Medical - PN: Subj Patient information: Note initiated : 01/30/20 at 2:34 pm Service Date, if different from initiated Date: [] Patient: Reginald Gonzales 89 y/o M admitted on 01/29/20 for fall left hip pain. Chief Complaint: [] Interval history: Mr. 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 Patient is accompanied with his who has not been able to take care of him because of his symptoms. He is gotten progressively weak and unable to function. Patient work-up in the ER was consistent with pelvis fracture involving bilateral superior inferior pubic rami. Orthopedic was consulted and advised nonoperative conservative management. Subsequently hospitalist service consulted At the time evaluation patient is alert and able to answer some of the questions. No family members are present. He denies fever chills or lightheadedness dizziness. Endorses to trauma sustained while he tripped and landed on a hard chair. He denies losing consciousness, fever, bloody urine. 01/29-patient sitting at the edge of bed, intermittently confused. On 2 L oxygen. X-ray chest pending. Afebrile. White count 10,000. Pain well controlled. Continue therapies/nutrition support. Case management coordinate discharge planning. Concern was raised by staff about patient's not following COVID restrictions and visitation policies. Family requested further imaging, and if a fracture noted that needed surgery, then wanted transfer to Dr. Batista. *CT pelvis showed pubic rami fractures but nothing operable as previously noted per Ortho discussion with ED provider. 01/30 - Constitutional Vitals: Vital Signs Temp Pulse Resp BP Pulse Ox 98.7 F 85 22 114/79 95 01/30/20 13:22 01/30/20 13:22 01/30/20 13:22 01/30/20 13:22 01/30/20 13:22 Period Temp Pulse Resp BP Sys/Eduardo Pulse Ox Last 24 Hr 97.7 F-98.7 F 72-96 16-28 110-150/65-89 84-98 Intake and Output 01/30/20 01/30/20 01/30/20 05:59 13:59 21:59 Intake Total 0 65 Output Total 300 Balance -300 65 Intake & Output: Intake & Output 01/30/20 01/30/20 01/30/20 05:59 13:59 21:59 Intake Total 0 65 Output Total 300 Balance -300 65 Intake: IV 65 Oral 0 Output: Urine Catheter Amount 300 Other: Urine Appearance Clear Clear Uretheral (Matta) Clear Urine Color Dark Yellow Dark Yellow Uretheral (Matta) Dark Yellow Urine Odor Strong Strong Uretheral (Matta) Strong Exam: General: Alert, Awake, No acute Distress Eyes/N/T: EOMI, Head/Neck: neck supple, CV: RRR, No murmurs, Pulm: Clear b/l, no wheezing/rhonchi/rales Abd: soft, nontender, +BS x4 Ext: no clubbing/cyanosis/edema Neuro: awake, moves all extremities, dementia Skin: warm/dry Medical - PN: Obj Da - Labs CBC & Chem 7: 01/30/20 05:20 01/30/20 05:20 Labs: Abnormal Lab Results 01/30/20 01/30/20 01/29/20 05:20 05:20 15:58 RBC 3.61 L Hgb 11.7 L Hct 37.1 L MCV 102.8 H Lymph % (Auto) [place] % (Auto) Lymph # (Auto) [place] # (Auto) RBC Morphology Abnorm A Macrocytosis 1+ A Anion Gap 7.0 L BUN 31 H 34 H Glucose 108 H Calcium 8.4 L 8.3 L Alkaline Phosphatase 258 H 254 H Lactate Dehydrogenase 279 H Total Protein 5.6 L 01/29/20 15:58 RBC 3.45 L Hgb 11.4 L Hct 35.8 L MCV 103.8 H Lymph % (Auto) 8.9 L [place] % (Auto) 16.0 H Lymph # (Auto) 0.81 L [place] # (Auto) 1.46 H RBC Morphology Macrocytosis Anion Gap BUN Glucose Calcium Alkaline Phosphatase Lactate Dehydrogenase Total Protein Meds: Medications Acetaminophen (Tylenol) 650 mg PO Q4-6HP PRN; Protocol PRN Reason: Per Pain Protocol/Fever > 101 Albuterol Sulfate (Ventolin) 1 puff INH Q6HP PRN PRN Reason: Dyspnea Albuterol/Ipratropium (Duoneb) 3 ml NEB Q3HP PRN PRN Reason: shortness of breath or wheezing Bisacodyl (Dulcolax) 10 mg [place] Q2-3DAYS PRN PRN Reason: Constipation Budesonide (Pulmicort) 0.5 mg NEB Q12 [facility] Docusate Sodium (Colace) 100 mg PO BID [facility] Last Admin: 01/30/20 09:29 Dose: Not Given Documented by: Heparin Sodium (Porcine) (Heparin) 5,000 unit SQ Q12 [facility] Last Admin: 01/30/20 09:38 Dose: 5,000 unit Documented by: Acetaminophen (Ofirmev) 650 mg in 65 mls @ 130 mls/hr IV Q6HP PRN; Protocol PRN Reason: Per Pain Protocol/Fever > 101 Last Infusion: 01/30/20 13:58 Dose: Infused Documented by: Magnesium Sulfate (Magnesium Sulfate) 2 gm in 50 mls @ 50 mls/hr IV UD PRN PRN Reason: MG = or < 1.7 Iron Carb/Multivit/[place]/Folic Acid (Multivitamin W/Minerals) 1 tab PO DAILY [facility] Last Admin: 01/30/20 09:30 Dose: Not Given Documented by: Lactobacillus Rhamnosus (Culturelle) 1 cap PO BID [facility] Last Admin: 01/30/20 09:30 Dose: Not Given Documented by: Lidocaine (Lidoderm) 1 patch TOPICAL DAILY@1000 [facility] Last Admin: 01/30/20 13:12 Dose: 1 patch Documented by: Melatonin (Melatonin 3mg Tablet) 3 mg PO HSP PRN PRN Reason: Insomnia Ondansetron HCl (Zofran Odt) 4 mg SL Q4-6HP PRN; Protocol PRN Reason: Nausea And Vomiting Ondansetron HCl (Zofran) 4 mg IV Q4-6HP PRN; Protocol PRN Reason: Nausea And Vomiting [Symbicort 160-4.5 2 dose INH BID [facility] Last Admin: 01/30/20 09:30 Dose: Not Given Documented by: [Spiriva Respimat (Inh) 2 dose INH QDAY PRN PRN Reason: wheezing Polyethylene Glycol (Miralax) 17 gm PO DAILYP PRN PRN Reason: Constipation Potassium Chloride (Klor-Con) 40 meq PO DAILYP PRN PRN Reason: K+ < 3.5 Senna/Docusate Sodium (Senna Plus Tablet) 1 tab PO HS [facility] Last Admin: 01/29/20 22:22 Dose: 1 tab Documented by: Sodium Chloride (Saline Flush) 10 ml IV Q8 [facility] Last Admin: 01/30/20 13:12 Dose: 10 ml Documented by: Medical - PN: A/P - Time Spent With Patient Total time spent is greater than 50% in coordination of care (as documented) at patient's floor/unit and/or counseling patient: - Narrative A/P Narrative: A: *Bilateral pubic rami pelvis fracture: conservative mgmt with pain management/mobilization per PT, Case d/w Ortho in ED. *Pain management: *Hypoxia is possibly secondary to aspiration vs sedation from pain meds: Minimize opioid use. *Oropharyngeal Dysphagia: follows with ST outpt *COPD (not on home O2): *CHIP: *Severe weakness/Deconditioning: continue PT /assisted mobility with continued gait and safety *Advanced dementia: continue monitoring for delirium. *Chronic back: 2/2 chronic vertebral fracture T4-L3: *h/o obstructive hydrocephalus status post E[employer] EX[employer]IMENT[employer]CH[employer]IC shunting by Dr. Medina in past. *BPH continue tamsulosin Plan -continue Tylenol/tramadol/opioids as needed -Maintain fall risk/dementia watch -PT OT nutrition support -on amoxicillin outpt recently started for possible RLL PNA -cont home IH's -Discharge planning per case management -ppx: heparin Medical - PN: Qual - Stroke Symptom Onset Unknown: No - VTE Deep Vein Thrombosis/Pulmonary Embolism Present on Admission: No
[2020-01-30] MEDS ORDERED: BISACODYL 10 MG SUPP.RECT PR ONE (15:09)
[2020-01-30] MEDS ORDERED: traMADol 50 MG TABLET PO PRN (15:13)
[2020-01-30] MEDS: cefTRIAXone 1 GM VIAL IV SCH (17:44)
[2020-01-30] MEDS: 0.45 % SODIUM CHLORIDE 1,000 ML IV SCH (20:32)
[2020-01-30] MEDS: SENNOSIDES/DOCUSATE SODIUM 1 TAB TABLET PO SCH (21:00)
[2020-01-30] MEDS: BUDESONIDE 0.5 MG/2 ML AMPUL.NEB NEB SCH (21:26)
[2020-01-31] MEDS: 0.9 % SODIUM CHLORIDE 10 ML SYRINGE IV SCH ×2 (05:53→13:16)
[2020-01-31 06:20] LABS: Hematocrit 32.5 % (40.1-51.0); Hemoglobin 10.4 g/dL (13.7-17.5); Mean Cell Volume 101.2 fL (80.0-100.0); Mean Platelet Volume 9.7 fL (7.4-10.4); Platelet Count 146 K/mcL (140-440); RBC 3.21 M/mcL (4.63-6.08); Red Cell Distribution Width 13.2 % (11.5-14.5); WBC 9.1 K/mcL (4.50-11.00)
[2020-01-31 06:47] LABS: ALT/SGPT 25 U/l (0-40); AST/SGOT 22 U/l (0-37); Albumin 2.8 gm/dL (3.2-5.2); Albumin/Globulin Ratio 1.1 (1.0-2.3); Alkaline Phosphatase 231 U/L (39-117); Bilirubin,Direct 0.2 mg/dL (0.0-0.3); Bilirubin,Total 0.6 mg/dL (0.0-1.0); Blood Urea Nitrogen 31 mg/dl (8-23); Calcium 7.9 mg/dl (8.6-10.4); Carbon Dioxide 27 mmol/L (22-30); Chloride 100 mmol/L (96-108); Globulin 2.5 gm/dL (2.2-3.7); Glomerular Filtration Rate 84; Glucose 85 mg/dL (70-105); Lactate Dehydrogenase 259 U/L (94-250); Triglycerides 59 mg/dl (<150); Uric Acid 3.8 mg/dL (2.5-8.0)
--- NOTE | 2020-01-31 07:24 | Internal Med Progress Note ---
Medical - PN: Subj Patient information: Note initiated : 01/31/20 at 7:22 am Service Date, if different from initiated Date: [] Patient: Reginald Gonzales 89 y/o M admitted on 01/29/20 for fall left hip pain. Chief Complaint: [] Interval history: Mr. Gonzales is a 89 year old M with a history of dementia, COPD, obstructive hydrocephalus status post [employer] L[employer] shunt who presents to the ER with increasing difficulty ambulating along with hip pain. Patient is accompanied with his who has not been able to take care of him because of his symptoms. He is gotten progressively weak and unable to function. Patient work-up in the ER was consistent with pelvis fracture involving bilateral superior inferior pubic rami. Orthopedic was consulted and advised nonoperative conservative management. Subsequently hospitalist service consulted At the time evaluation patient is alert and able to answer some of the questions. No family members are present. He denies fever chills or lightheadedness dizziness. Endorses to trauma sustained while he tripped and landed on a hard chair. He denies losing consciousness, fever, bloody urine. 01/29-patient sitting at the edge of bed, intermittently confused. On 2 L oxygen. X-ray chest pending. Afebrile. White count 10,000. Pain well controlled. Continue therapies/nutrition support. Case management coordinate discharge planning. Concern was raised by staff about patient's not following COVID restrictions and visitation policies. Family requested further imaging, and if a fracture noted that needed surgery, then wanted transfer to Dr. Batista. *CT pelvis showed pubic rami fractures but nothing operable as previously noted per Ortho discussion with ED provider. 01/30 Drowsiness morning but awakens to voice and opens eyes. Denies any complaints. Other than some pelvis pain. Review of Systems: denies headache/fever/chills/nausea/vomiting/chest or abdominal pain/cough/dyspnea/diarrhea. Otherwise see above. - Constitutional Vitals: Vital Signs Temp Pulse Resp BP Pulse Ox 98.3 F 75 20 107/65 97 01/31/20 04:15 01/31/20 04:15 01/31/20 04:15 01/31/20 04:15 01/31/20 05:55 Period Temp Pulse Resp BP Sys/Eduardo Pulse Ox Last 24 Hr 97.7 F-99.4 F 75-96 20-24 107-122/65-79 84-99 Intake and Output 01/30/20 01/31/20 01/31/20 21:59 05:59 13:59 Intake Total 0 Output Total 375 550 Balance -375 -550 Weight 63.231 kg Intake & Output: Intake & Output 01/30/20 01/31/20 01/31/20 21:59 05:59 13:59 Intake Total 0 Output Total 375 550 Balance -375 -550 Weight 63.231 kg Intake: Oral 0 Output: Urine Catheter Amount 375 550 Other: Urine Appearance Clear Clear Uretheral (Matta) Clear Urine Color Dark Yellow Light Dalila Uretheral (Matta) Light Dalila Urine Odor Strong Exam: General: Awake, No acute Distress Eyes/N/T: EOMI, Head/Neck: neck supple, CV: RRR, No murmurs, Pulm: Clear b/l, no wheezing/rhonchi/rales Abd: soft, nontender, +BS x4 Ext: no clubbing/cyanosis/edema Neuro: awake, moves all extremities, follows commands, dementia Skin: warm/dry Medical - PN: Obj Da - Labs CBC & Chem 7: 01/31/20 05:40 01/31/20 05:40 Labs: Abnormal Lab Results 01/31/20 01/31/20 01/30/20 05:40 05:40 05:20 RBC 3.21 L Hgb 10.4 L Hct 32.5 L MCV 101.2 H Lymph % (Auto) Eddy % (Auto) Lymph # (Auto) Eddy # (Auto) RBC Morphology Macrocytosis Anion Gap BUN 31 H 31 H Glucose 108 H Calcium 7.9 L 8.4 L Alkaline Phosphatase 231 H 258 H Lactate Dehydrogenase 259 H 279 H Total Protein 5.3 L Albumin 2.8 L 01/30/20 01/29/20 01/29/20 05:20 15:58 15:58 RBC 3.61 L 3.45 L Hgb 11.7 L 11.4 L Hct 37.1 L 35.8 L MCV 102.8 H 103.8 H Lymph % (Auto) 8.9 L Eddy % (Auto) 16.0 H Lymph # (Auto) 0.81 L Eddy # (Auto) 1.46 H RBC Morphology Abnorm A Macrocytosis 1+ A Anion Gap 7.0 L BUN 34 H Glucose Calcium 8.3 L Alkaline Phosphatase 254 H Lactate Dehydrogenase Total Protein 5.6 L Albumin Meds: Medications Acetaminophen (Tylenol) 650 mg PO Q4-6HP PRN; Protocol PRN Reason: Per Pain Protocol/Fever > 101 Albuterol Sulfate (Ventolin) 1 puff INH Q6HP PRN PRN Reason: Dyspnea Albuterol/Ipratropium (Duoneb) 3 ml NEB Q3HP PRN PRN Reason: shortness of breath or wheezing Bisacodyl (Dulcolax) 10 mg TX Q2-3DAYS PRN PRN Reason: Constipation Budesonide (Pulmicort) 0.5 mg NEB Q12 [facility] Last Admin: 01/30/20 21:26 Dose: 0.5 mg Documented by: Ceftriaxone Sodium (Rocephin) 1 gm IV Q24H [facility] Last Admin: 01/30/20 17:44 Dose: 1 gm Documented by: Docusate Sodium (Colace) 100 mg PO BID [facility] Last Admin: 01/30/20 21:00 Dose: Not Given Documented by: Heparin Sodium (Porcine) (Heparin) 5,000 unit SQ Q12 [facility] Last Admin: 01/30/20 20:55 Dose: 5,000 unit Documented by: Acetaminophen (Ofirmev) 650 mg in 65 mls @ 130 mls/hr IV Q6HP PRN; Protocol PRN Reason: Per Pain Protocol/Fever > 101 Last Admin: 01/30/20 20:53 Dose: 130 mls/hr Documented by: Magnesium Sulfate (Magnesium Sulfate) 2 gm in 50 mls @ 50 mls/hr IV UD PRN PRN Reason: MG = or < 1.7 Sodium Chloride (Sodium Chloride 0.45%) 1,000 mls @ 60 mls/hr IV .[id number] [facility] Last Admin: 01/30/20 20:32 Dose: 60 mls/hr Documented by: Iron Carb/Multivit/Dietary Aid/Folic Acid (Multivitamin W/Minerals) 1 tab PO DAILY [facility] Last Admin: 01/30/20 09:30 Dose: Not Given Documented by: Lactobacillus Rhamnosus (Culturelle) 1 cap PO BID [facility] Last Admin: 01/30/20 21:00 Dose: Not Given Documented by: Lidocaine (Lidoderm) 1 patch TOPICAL DAILY@1000 [facility] Last Admin: 01/30/20 13:12 Dose: 1 patch Documented by: Melatonin (Melatonin 3mg Tablet) 3 mg PO HSP PRN PRN Reason: Insomnia Ondansetron HCl (Zofran Odt) 4 mg SL Q4-6HP PRN; Protocol PRN Reason: Nausea And Vomiting Ondansetron HCl (Zofran) 4 mg IV Q4-6HP PRN; Protocol PRN Reason: Nausea And Vomiting [Symbicort 160-4.5 2 dose INH BID [facility] Last Admin: 01/30/20 21:00 Dose: Not Given Documented by: [Spiriva Respimat (Inh) 2 dose INH QDAY PRN PRN Reason: wheezing Polyethylene Glycol (Miralax) 17 gm PO DAILYP PRN PRN Reason: Constipation Potassium Chloride (Klor-Con) 40 meq PO DAILYP PRN PRN Reason: K+ < 3.5 Senna/Docusate Sodium (Senna Plus Tablet) 1 tab PO HS [facility] Last Admin: 01/30/20 21:00 Dose: Not Given Documented by: Sodium Chloride (Saline Flush) 10 ml IV Q8 [facility] Last Admin: 01/31/20 05:53 Dose: Not Given Documented by: Tramadol HCl (Ultram) 50 mg PO Q6HP PRN PRN Reason: Pain Medical - PN: A/P - Time Spent With Patient Total time spent is greater than 50% in coordination of care (as documented) at patient's floor/unit and/or counseling patient: - Narrative A/P Narrative: A: *Bilateral pubic rami pelvis fracture: conservative mgmt with pain management/mobilization per PT, Case d/w Ortho in ED. *Pain management: *Hypoxia is possibly secondary to aspiration vs sedation from pain meds: Minimize opioid use -on room air but desatted at night with activity, now back on room air *Oropharyngeal Dysphagia: follows with ST outpt *COPD (not on home O2): *CHIP: *Severe weakness/Deconditioning: continue PT /assisted mobility with continued gait and safety *Advanced dementia: continue monitoring for delirium. 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 Medina in past. *BPH continue tamsulosin Plan -continue Tylenol/tramadol/opioids as needed -IVF's while poor oral intake -Maintain fall risk/dementia watch -PT OT nutrition support -on amoxicillin outpt recently started for possible RLL PNA -cont home IH's -Discharge planning per case management -ppx: heparin Medical - PN: Qual - Stroke Symptom Onset Unknown: No - VTE Deep Vein Thrombosis/Pulmonary Embolism Present on Admission: No
[2020-01-31 07:49] LABS: Lymphocytes % 7 % (15-49); Macrocytosis 1+ (NONE SEEN); Monocytes % (Manual) 9 % (1-12); Platelet Estimate NORMAL (NORMAL); RBC Morphology ABNORM (NORMAL); Segmented Neutrophils % 84 % (38-78)
[2020-01-31] MEDS: HEPARIN 5,000 UNIT/ML VIAL SQ SCH (09:11)
[2020-01-31] MEDS: cefTRIAXone 1 GM VIAL IV SCH (09:11)
[2020-01-31] MEDS: MULTIVIT,THER IRON,CA,FA & MIN 1 TABLET PO SCH (09:12)
[2020-01-31] MEDS: LACTOBACILLUS 1 CAPSULE PO SCH (09:12)
[2020-01-31] MEDS: DOCUSATE SODIUM 100 MG CAPSULE PO SCH (09:12)
[2020-01-31] MEDS: SYMBICORT INH SCH (09:12)
[2020-01-31] MEDS: ACETAMINOPHEN 650 MG/65 ML BOTTLE IV PRN (09:16)
[2020-01-31] MEDS: BUDESONIDE 0.5 MG/2 ML AMPUL.NEB NEB SCH (09:19)
[2020-01-31] MEDS: LIDOCAINE PATCH TOPICAL SCH (10:00)
--- NOTE | 2020-01-31 10:30 | Discharge Summary ---
Medical - DS: Prov Patient information: Note initiated : 01/31/20 at 10:28 am Service Date, if different from initiated Date: [] Patient: Reginald Gonzales 89 y/o M admitted on 01/29/20 for fall left hip pain. Chief Complaint: [] Date of admission: 01/29/20 20:35 Discharge date: 01/31/20 Primary care physician: Kemal Barone DO Consults: 01/29/20 17:26 Consult to Physician [CONS] Stat Comment: Consulting Provider: Ferdinand Hamilton Reason For Exam: Physician to Consult Medical - DS: Meds - Discharge Medications Prescriptions: Lidocaine [Lidoderm] 1 patch TOPICAL DAILY@1000 #7 patch Acetaminophen [Tylenol] 650 mg PO Q6HP PRN #40 tab PRN Reason: Pain/Fever > 101 traMADol [Ultram] 50 mg PO Q6HP PRN #15 tab PRN Reason: Pain Active and Home Medications: Home Medications Multivitamin With [place] 3 1 cap PO DAILY 05/25/16 [History Confirmed 01/29/20 Last Taken 01/29/20 1] Acetaminophen [Tylenol] 650 mg PO Q6HP PRN tab 03/12/18 [Rx Confirmed 01/29/20 Last Taken 01/29/20 650 mg] Docusate Sodium [Colace] 200 mg PO DAILY #100 cap 03/12/18 [Rx Confirmed 01/29/20 Last Taken 01/29/20 200 mg] Lactobacillus [Culturelle] 1 cap PO BID #100 cap 03/12/18 [Rx Confirmed 01/29/20 Last Taken 01/29/20 1 Capsule] Polyethylene Glycol 3350 [Miralax] 17 gm PO DAILYP PRN #30 packet 03/12/18 [Rx Confirmed 01/29/20 Last Taken 01/29/20 17 Grams] albuterol sulfate 90 mcg/actuation aerosol inhaler 1 inh INHALATION Q6HP PRN #18 g 11/25/19 [Rx Confirmed 01/29/20 Last Taken Unknown] budesonide-formoterol HFA 160 mcg-4.5 mcg/actuation aerosol inhaler 2 puff INHALATION BID #1 g 11/25/19 [Rx Confirmed 01/29/20 Last Taken 01/29/20 2 Puffs] tiotropium bromide 1.25 mcg/actuation mist for inhalation 2 puff INHALATION QDAY PRN #1 g 11/25/19 [Rx Confirmed 01/29/20 Last Taken 01/29/20 2 Puffs] ipratropium 0.5 mg-albuterol 3 mg (2.5 mg base)/3 mL nebulization soln 3 ml INHALATION Q3H PRN #180 ml 01/13/20 [Rx Confirmed 01/29/20 Last Taken 01/27/20 1 UD] Amoxicillin 500 mg PO Q8H #30 cap 01/25/20 [Rx Confirmed 01/29/20 Last Taken 01/28/20 500 mg] oxygen 2 lf NARES HS 01/29/20 [History Confirmed 01/29/20 Last Taken 01/28/20 2 LPM] Medical - DS: Hosp Hospital Course: Mr. Gonzales is a 89 year old M with a history of dementia, COPD, obstructive hydrocephalus status post [employer] shunt who presents to the ER with increasing difficulty ambulating along with hip pain. Patient is accompanied with his who has not been able to take care of him because of his symptoms. He is gotten progressively weak and unable to function. Patient work-up in the ER was consistent with pelvis fracture involving bilateral superior inferior pubic rami. Orthopedic was consulted and advised nonoperative conservative management. Subsequently hospitalist service consulted At the time evaluation patient is alert and able to answer some of the questions. No family members are present. He denies fever chills or lightheadedness dizziness. Endorses to trauma sustained while he tripped and landed on a hard chair. He denies losing consciousness, fever, bloody urine. 01/29-patient sitting at the edge of bed, intermittently confused. On 2 L oxygen. X-ray chest pending. Afebrile. White count 10,000. Pain well controlled. Continue therapies/nutrition support. Case management coordinate discharge planning. Concern was raised by staff about patient's not following COVID restrictions and visitation policies. Family requested further imaging, and if a fracture noted that needed surgery, then wanted transfer to Dr. Batista. *CT pelvis showed pubic rami fractures but nothing operable as previously noted per Ortho discussion with ED provider. 01/30 Drowsiness morning but awakens to voice and opens eyes. Denies any complaints. Other than some pelvis pain. Patient waking up more eating throughout the day, increased lunch intake from breakfast. Had several conversations with who wants the patient home today. She has been talking to hospice and wants to get hospice involved in his care. She has caretakers at home throughout the weekend. She is adamant about him coming home today and not going to SNF. Patient has had multiple hospitalizations between [facility] and [facility] since last Fall. He seems to be on a downward spiral and does not have much reserve and thus appears to be deteriorating. I explained this to the and some moments she seems understand and other moments there seems to be a disconnect. A: *Bilateral pubic rami pelvis fracture: conservative mgmt with pain management/mobilization per PT, Case d/w Ortho in ED. *Pain management: *Hypoxia is possibly secondary to aspiration vs sedation from pain meds: Minimize opioid use -on room air but desatted at night with activity, now back on room air *Oropharyngeal Dysphagia: follows with ST outpt *COPD (not on home O2): *CHIP: *Severe weakness/Deconditioning: continue PT /assisted mobility with continued gait and safety *Advanced dementia: continue monitoring for delirium. 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 Medina in past. *BPH continue tamsulosin Discharge diagnosis: Bilateral pubic rami fracture oral pharyngeal dysphagia Secondary discharge diagnosis: Intermittent hypoxia likely related to underlying COPD with possible aspiration or pain medication sedation CHIP severe weakness deconditioning advanced dementia chronic pain obstructive hydrocephalus with a [employer] shunt - Time Spent with Patient Total time spent providing and/or coordinating discharge services: Greater than 30 minutes Medical - DS: Exam - Constitutional Vitals: Vital Signs Temp Pulse Pulse Resp BP BP Pulse Ox 01/31/20 07:44 99 F 89 22 151/88 92 01/31/20 07:15 89 22 92 01/31/20 05:55 97 01/31/20 04:15 98.3 F 75 20 107/65 91 01/31/20 02:10 99 01/30/20 23:35 99.4 F H 83 20 122/73 97 01/30/20 21:31 87 24 H 96 01/30/20 21:29 88 24 H 01/30/20 19:00 99.0 F 84 20 121/76 94 04/30/20 17:41 98.4 F 79 22 114/75 90 01/30/20 13:22 98.7 F 85 22 114/79 95 Intake and Output 01/30/20 01/31/20 01/31/20 21:59 05:59 13:59 Intake Total 65 0 65 Output Total 375 550 Balance -310 -550 65 Intake: IV 65 65 Oral 0 0 Output: Urine Catheter Amount 375 550 Other: Meal Breakfast Percent of Meal Consumed 10% Feeding Ability Total Assistance Urine Appearance Clear Clear Uretheral (Matta) Clear Clear Urine Color Dark Yellow Light Dalila Uretheral (Matta) Light Dalila Light Dalila Urine Odor Strong Uretheral (Matta) Strong Weight 63.231 kg Medical - DS: Data Labs on day of discharge: Labs from last 24 hours 01/31/20 01/31/20 05:40 05:40 WBC 9.1 RBC 3.21 L Hgb 10.4 L Hct 32.5 L MCV 101.2 H MCH 32.4 MCHC 32.0 RDW 13.2 Plt Count 146 MPV 9.7 Total Counted 100 Seg Neutrophils % 84 H Band Neutrophils % Not Reportable Lymphocytes % 7 L Monocytes % (Manual) 9 Platelet Estimate Normal RBC Morphology Abnorm A Macrocytosis 1+ A Sodium 138 Potassium 4.4 Chloride 100 Carbon Dioxide 27 Anion Gap 11.0 BUN 31 H Creatinine 0.7 GFR Calculation 84 Glucose 85 Uric Acid 3.8 Calcium 7.9 L Phosphorus 3.0 Magnesium 2.1 Total Bilirubin 0.6 Direct Bilirubin 0.2 GGT 23 AST 22 ALT 25 Alkaline Phosphatase 231 H Lactate Dehydrogenase 259 H Total Protein 5.3 L Albumin 2.8 L Globulin 2.5 Albumin/Globulin Ratio 1.1 Triglycerides 59 Medical - DS: A/P - Patient/Caregiver Discharge Instructions Activity: as per physical therapy, increase activity as tolerated Diet: Dysphagia Level 6 Soft & Bite-Sized Foods (mildly thick liquids, ensure enlive 8oz three times daily) Additional Instructions: Follow-up with speech therapy outpatient f/u with Hospice Prescriptions: Lidocaine [Lidoderm] 1 patch TOPICAL DAILY@1000 #7 patch Acetaminophen [Tylenol] 650 mg PO Q6HP PRN #40 tab PRN Reason: Pain/Fever > 101 traMADol [Ultram] 50 mg PO Q6HP PRN #15 tab PRN Reason: Pain - Follow up Plan Follow up with: Kemal Barone DO [Primary Care Provider] - Disposition: Hospice - Home Prognosis: Undetermined Rehab Potential: Undetermined Overall status at discharge: patient is progressing back to baseline Medical - DS: Qual - VTE Deep Vein Thrombosis/Pulmonary Embolism Present on Admission: No
[2020-01-31] MEDS: 0.45 % SODIUM CHLORIDE 1,000 ML IV SCH (13:16)
== END 2020-01-31 18:07 | disposition hospice, home (50) | DRG 536 ==
LOC: ED 14:27 → MEDSUR 20:35
PROVIDERS: ADMIT Internal Medicine; ATTEND Internal Medicine

== ENCOUNTER 2020-09-24 13:35 | Inpatient (IN) ==
[2020-09-24] MEDS ORDERED: TERBUTALINE 1 MG/ML VIAL SQ ONE (14:17)
[2020-09-24] MEDS ORDERED: ALBUTEROL SULFATE 200 PUFF INHALER INH ONE (14:17)
[2020-09-24] MEDS ORDERED: 0.9 % SODIUM CHLORIDE 1,000 ML IV ONE (14:17)
[2020-09-24 14:18] LABS: POC Blood Urea Nitrogen 26 mg/dL (6-20); POC CO2 31 mmol/L (22-30); POC Calcium, Ionized 1.17 mmEq/L (1.16-1.32); POC Chloride 98 mEq/L (96-108); POC Creatinine 0.8 mg/dL (0.6-1.2); POC Glucose, Random 109 mg/dL (70-105); POC Hematocrit 38 % (41-55); POC Potassium 4.2 mEql/L (3.3-5.1); POC Sodium 138 mEq/L (133-145)
--- NOTE | 2020-09-24 14:20 | XRay Report ---
CLINICAL INFORMATION: covid COMPARISON: 07/31/2020 FINDINGS: Mild cardiomegaly is unchanged. Mediastinum and pulmonary vessels are normal. Small patchy right basilar infiltrate has developed there is minor atelectasis left base. No definite effusion IMPRESSION: Small patchy right basilar infiltrate. Interpreted and Authenticated by: Kemal Ornelas 09/24/20
--- NOTE | 2020-09-24 14:27 | Emergency Department Note ---
HPI General Chief complaint: Cold/Flu Symptoms Stated complaint: "pos. COVID" Time Seen by Provider: 09/24/20 13:48 Source: family Mode of arrival: wheelchair Limitations: altered mental status History of Present Illness HPI Narrative: Narrative: 89-year-old male comes in with shortness of breath now requiring oxygen [id number]. He tested positive with Covid at the [facility] clinic 2 days ago. Increasing weakness noted. He does have a history of COPD as well as aspiration pneumonia and other chronic medical conditions. He does have oxygen at home but only wears it intermittently. Unclear exactly when he started feeling sick but suspect a week or more. He states he is having some left-sided belly pain. All history from his -he talks very softly and is difficult to understand. He does not answer most questions Related Data Home Medications Medication Instructions Recorded Confirmed Multivitamin With [place] 3 See Rx Instructions PO .COMPLEX 03/27/20 08/12/20 acetaminophen 325 mg tablet See Rx Instructions PO .COMPLEX 03/27/20 08/12/20 PRN tab celecoxib 200 mg capsule See Rx Instructions PO .COMPLEX 03/27/20 08/12/20 ferrous sulfate 140 mg (45 mg See Rx Instructions PO .COMPLEX 03/27/20 08/12/20 iron) tablet,extended release fluticasone furoate 200 See Rx Instructions INHALATION 03/27/20 08/12/20 mcg/actuation blister powder for .COMPLEX inhalation oxygen See Rx Instructions INTRANASAL 03/27/20 08/12/20 .COMPLEX Previous Rx's Medication Instructions Recorded Lactobacillus rhamnosus GG 1 cap PO BID #100 cap 03/12/18 albuterol sulfate 90 mcg/actuation 1 inh INHALATION Q6HP PRN #18 g 11/25/19 aerosol inhaler budesonide-formoterol HFA 160 2 puff INHALATION BID #1 g 11/25/19 mcg-4.5 mcg/actuation aerosol inhaler tiotropium bromide 1.25 2 puff INHALATION QDAY PRN #1 g 11/25/19 mcg/actuation mist for inhalation ipratropium 0.5 mg-albuterol 3 mg 3 ml INHALATION Q3H PRN #180 ml 01/13/20 (2.5 mg base)/3 mL nebulization soln Allergies Allergy/AdvReac Type Severity Reaction Status Date / Time lidocaine AdvReac Severe Difficulty Verified 09/24/20 13:44 Breathing hydrocodone AdvReac Intermediate "Sick, Verified 09/24/20 13:44 can't move, went crazy" prednisolone AdvReac Verified 09/24/20 13:44 Review of Systems ROS ROS Narrative: Narrative: Patient is able to speak but very difficult to communicate with. 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) Fecal impaction in rectum (Acute) Fall (Acute) Pelvic fracture (Acute) Unable to bear weight (Acute) Advance care planning (Acute) Matta catheter in place (Acute) Altered mental status (Chronic) Shortness of breath (Acute) Compression fracture of T10 vertebra (Acute) Gallstones (Chronic) Compression fracture of T9 vertebra (Chronic) Altered level of consciousness (Chronic) Fall from slip, trip, or stumble (Chronic) Skin tear of elbow without complication (Chronic) Skin tear of forearm without complication (Chronic) Encounter for wound care (Chronic) Back pain (Chronic) Generalized weakness (Chronic) Constipation (Chronic) Weakness (Chronic) Confusion (Chronic) Recurrent falls (Chronic) Hydrocephalus in adult (Chronic) Atrial fibrillation by electrocardiography (Chronic) Disorder of epiglottis (Chronic) Shuffling gait (Chronic) Normal pressure hydrocephalus (Chronic) Parkinson disease (Chronic) COPD exacerbation (Chronic) Solitary lung nodule (Chronic) Dyspnea on exertion (Chronic) Diplopia (Chronic) Upper respiratory infection (Chronic) Asthma exacerbation (Chronic) Nephrolithiasis (Chronic) Urinary tract infection (Chronic) Chronic coughing (Chronic) Pneumonia (Chronic) Fecal impaction (Chronic) Urinary retention (Chronic) COPD (chronic obstructive pulmonary disease) (Chronic) Hypoxemia (Chronic) Dysphagia (Chronic) Cough (Chronic) Left shoulder pain (Chronic) Anemia (Chronic) Osteopenia determined by x-ray (Chronic) Kidney stones (Chronic) Community acquired bacterial pneumonia (Chronic) Rib pain on right side (Chronic) History of COPD (Chronic) Aspiration pneumonia (Chronic 05/27/16) Medical History Advance care planning (Acute) Patient and continues to refuse hospice. I do recommend hospice, as a believe that this 89-year-old male is unlikely to recover his mental status. NPH is been present for about 10 months, and it is been about 6 months since the INDUSTRIAL SOCIOLOGIST shunt was placed, with no improvement. Patient has difficulty with speech, so mental status is difficult to assess, especially since his interjects every time I ask a question. He definitely is altered, and per his and caregiver, he is doing well today. I know that his mental status waxes and wanes, meaning that it is worse some days. We will continue closer follow-up with this patient, and try and help guide him and his regarding advance care planning. Currently the patient states he would like full treatment. Greater than 30 minutes spent in counseling, and end-of-life decision-making. 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 History of iron overload. No evidence of GI bleeding, per family. Check iron studies Monitor CBCs Aspiration pneumonia (Chronic 05/27/16) Asthma exacerbation (Chronic) Atrial fibrillation by electrocardiography (Chronic) Back pain (Chronic) Bronchitis, acute (Chronic) Chronic coughing (Chronic) Community acquired bacterial pneumonia (Chronic) Compression fracture of T10 vertebra (Acute) New finding on recent x-ray. DEXA scan ordered Follow-up with [facility] later today. Compression fracture of T9 vertebra (Chronic) Status post recent vertebroplasty with [facility], requesting records. Confusion (Chronic) Secondary to NPH and dementia Constipation (Chronic) MiraLAX daily and Colace as needed Increase fluid intake COPD (chronic obstructive pulmonary disease) (Chronic) Asthma/COPD Managed by Dr. Villatoro Restart Symbicort, Spiriva Continue albuterol Continue IS use at home COPD exacerbation (Chronic) Cough (Chronic) Diplopia (Chronic) Disorder of epiglottis (Chronic) After reported anesthetic complication in the with prolonged intubation, continues to have struggles with maintaining oral Dysphagia (Chronic) Prone to frequent aspiration. Will refer to continue speech therapy. Dyspnea on exertion (Chronic) Encounter for wound care (Chronic) Fall from slip, trip, or stumble (Chronic) Fecal impaction (Chronic) continue docusate stool softner and miralax increase activity. Talk to your physician about referral for colonoscopy Matta catheter in place (Acute) Currently unable to walk due to pelvic fracture pain and lower extremity weakness I strongly recommend that the Matta be removed, but patient's is refusing. Gallstones (Chronic) Generalized weakness (Chronic) History of COPD (Chronic) Hydrocephalus in adult (Chronic) NPH Status post INDUSTRIAL SOCIOLOGIST shunt [address] Osorio Continues to follow with Dr. Osorio Hypoxemia (Chronic) Kidney stones (Chronic) Left shoulder pain (Chronic) Nephrolithiasis (Chronic) Normal pressure hydrocephalus (Chronic) With altered mental status. Status post INDUSTRIAL SOCIOLOGIST shunt with Dr. Robertson, but no improvement of symptoms. Prognosis is poor for recovery of mental status. Osteopenia determined by x-ray (Chronic) Pain in thoracic spine (Chronic) Parkinson disease (Chronic) Pneumonia (Chronic) Recurrent falls (Chronic) Secondary to NPH and weakness Very high fall risk. Needs full assist with all activities of daily living Admit to life care at snf facility Rib pain on right side (Chronic) Shortness of breath (Acute) Per patient's this is acutely worsened compared to his baseline. Vital signs stable and afebrile. 2 view chest x-ray, CBC, CMP, and procalcitonin. Doubt pneumonia, sepsis, or systemic infection clinically, but will reassess or treat if indicated by the above studies. Advised Chelsea to keep oxygen on the patient at all times. Titrate level to maintain O2 sats between 93 to 98%. Shuffling gait (Chronic) Skin tear of elbow without complication (Chronic) Wound was cleaned and dressed per nursing protocol. Skin tear of forearm without complication (Chronic) Solitary lung nodule (Chronic) Unspecified asthma (Chronic) Upper respiratory infection (Chronic) Urinary retention (Chronic) cont flomax. avoid constipation Urinary tract infection (Chronic) Treated with Bactrim. No complaint of symptoms today. Matta removal recommended. Patient's refused Weakness (Chronic) Secondary to NPH Surgical History History of hernia surgery (Chronic) 1985 History of surgery (Chronic) Vertebroplasty T10 w/sed 11/27/19 Vertebroplasty T5, T8, T9 w/sed 10/31/19 History of tonsillectomy and adenoidectomy (Chronic) History of ventriculoperitoneal shunting (Chronic ~08/06/19) Dr. Robertson Family History Sister Breast cancer Father Dementia Mother Heart attack Social History Smoking Status: Never smoker Alcohol Intake Frequency: holiday/special occasion only Substance Use: does not use Exam Narrative Narrative: Normocephalic atraumatic. He does not open his eyes for me although I tried to interact with him several times. His voice is soft and he will answer most questions. Somnolent and lethargic globally weak. No nasal discharge or congestion. Wearing nasal cannula oxygen. Oropharynx is with dry buccal mucosa. Neck is supple without lymphadenopathy or thyromegaly. Heart is regular rate and rhythm no murmur appreciated. Lungs are with subtle crackles bilaterally. Abdomen is soft nontender nondistended. It is unclear if my palpation made his belly worse or not. It is difficult to get him to interact with me but he was able to wiggle his toes and move his feet a little bit on command. I do not see any pedal edema General Limitations: altered mental status Course Vital Signs Vital signs: Vital Signs Temperature 97.8 F 09/24/20 13:36 Pulse Rate 66 09/24/20 13:36 Respiratory Rate 22 09/24/20 13:36 Blood Pressure 156/88 09/24/20 13:36 Pulse Oximetry (%) 94 09/24/20 13:36 Temperature 97.8 F 09/24/20 13:36 Pulse Rate 82 09/24/20 16:10 Respiratory Rate 22 09/24/20 16:10 Blood Pressure 146/64 09/24/20 14:56 Pulse Oximetry (%) 93 09/24/20 16:10 MDM MDM Narrative Medical decision making narrative: Narrative: Chest x-ray 1 view is consistent with a Covid pneumonia. He is now requiring 2 L of oxygen -oxygen levels were 86% on admission. He is globally weak. He will likely require admission. His asked about breathing treatments but because of the Covid status we will do inhaler here with terbutaline injection and see if we can get him breathing better. Labs ordered Laboratories unrevealing-stable chronic findings. However he is requiring significantly more oxygen. I discussed his situation with him and his . Currently he is a full code. I have explained to them that doing CPR on him would be challenging and that further with his chronic conditions he is unlikely to do well in a code type situation. However they are certain they would like him to be a full code. We will reach out to the hospitalist, dr. Chavarria. I discussed the case with Dr. Chavarria and he agreed to accept the patient for further care and evaluation in the hospital Lab Data Lab results reviewed: Yes I reviewed the patient's lab results. Result diagrams: 09/24/20 14:10 Labs: Lab Results 09/24/20 09/24/20 09/24/20 Range/Units 14:10 14:10 14:10 WBC 6.0 (4.5-11.0) K/mcL RBC 4.08 L (4.50-5.90) M/mcL Hgb 12.7 L (13.5-16.5) g/dL Hct 40.1 L (41.0-55.0) % POC Hct 38 L (41-55) % MCV 98.3 (80.0-100.0) fL MCH 31.1 (26.0-34.0) pg MCHC 31.7 (31.0-36.0) g/dL RDW 13.3 (11.5-14.5) % Plt Count 199 (140-440) K/mcL MPV 9.3 (7.4-10.4) fL Neut % (Auto) 62.3 (38.0-78.0) % Lymph % (Auto) 21.0 (15.0-49.0) % Divide % (Auto) 16.2 H (1.0-12.0) % Eos % (Auto) 0.3 (0.0-7.0) % Baso % (Auto) 0.2 (0.0-2.0) % Lymph # (Auto) 1.26 L (1.50-4.80) K/mcL Divide # (Auto) 0.97 H (0.10-0.90) K/mcL Eos # (Auto) 0.02 (0.00-0.70) K/mcL Baso # (Auto) 0.01 (0.00-0.20) K/mcL Absolute Neutrophils 3.73 (1.80-8.00) K/mcL VBG Lactic Acid 1.0 (0.5-2.0) mmol/L POC Sodium 138 (133-145) mEq/L POC Potassium 4.2 (3.3-5.1) mEql/L POC Chloride 98 (96-108) mEq/L POC Total CO2 31 H (22-30) mmol/L POC BUN 26 H (6-20) mg/dL POC Creatinine 0.8 (0.6-1.2) mg/dL POC Glucose 109 H (70-105) mg/dL POC WB Ioniz Calcium 1.17 (1.16-1.32) mmEq/L Radiology Data Radiology results reviewed: Yes I reviewed the patient's radiology results. Discharge Plan Patient/Caregiver Discharge Instructions Pt seen by CLINICAL PROGRAM CONSULTANT/PA only: No Clinical Impression: Pneumonia due to 2019 novel coronavirus Patient Disposition: Xfer As Inpt ([facility]) Condition: Fair Follow up with: Unknown,Unknown [Primary Care Provider] - Prescriptions: No Action ipratropium-albuterol 0.5 mg-3 mg(2.5 mg base)/3 mL solution for nebulization 3 ml INHALATION Q3H PRN (Reason: shortness of breath or wheezing) Qty: 180 RF: 5 celecoxib 200 mg capsule See Rx Instructions PO .COMPLEX RF: 0 ferrous sulfate 140 mg (45 mg iron) tablet extended release See Rx Instructions PO .COMPLEX RF: 0 fluticasone furoate 200 mcg/actuation blister with device See Rx Instructions INHALATION .COMPLEX RF: 0 albuterol sulfate 90 mcg/actuation HFA aerosol inhaler 1 inh INHALATION Q6HP PRN (Reason: Dyspnea) Qty: 18 RF: 1 Symbicort 160-4.5 mcg/actuation HFA aerosol inhaler 2 puff INHALATION BID Qty: 1 RF: 0 Spiriva Respimat 1.25 mcg/actuation mist 2 puff INHALATION QDAY PRN (Reason: wheezing) Qty: 1 RF: 0 acetaminophen 325 mg tablet See Rx Instructions PO .COMPLEX PRN (Reason: Pain/Fever > 101) RF: 0 Multivitamin With [place] 3 See Rx Instructions PO .COMPLEX RF: 0 Lactobacillus rhamnosus GG 1 CAP capsule 1 cap PO BID Qty: 100 RF: 0 oxygen 2 See Rx Instructions intranasal .COMPLEX RF: 0
[2020-09-24 14:46] LABS: Basophils # (Auto) 0.01 K/mcL (0.00-0.20); Basophils % (Auto) 0.2 % (0.0-2.0); Eosinophils # (Auto) 0.02 K/mcL (0.00-0.70); Eosinophils % (Auto) 0.3 % (0.0-7.0); Hematocrit 40.1 % (41.0-55.0); Hemoglobin 12.7 g/dL (13.5-16.5); Lymphocytes # (Auto) 1.26 K/mcL (1.50-4.80); Mean Cell Volume 98.3 fL (80.0-100.0); Mean Corpuscular HGB Conc 31.7 g/dL (31.0-36.0); Mean Platelet Volume 9.3 fL (7.4-10.4); Monocytes # (Auto) 0.97 K/mcL (0.10-0.90); Monocytes % (Auto) 16.2 % (1.0-12.0); Neutrophils % (Auto) 62.3 % (38.0-78.0); Platelet Count 199 K/mcL (140-440); RBC 4.08 M/mcL (4.50-5.90); Red Cell Distribution Width 13.3 % (11.5-14.5)
[2020-09-24] MEDS ORDERED: ACETAMINOPHEN 325 MG TABLET PO PRN (17:05)
[2020-09-24] MEDS ORDERED: HYDROcodone/APAP 5/325MG TABLET PO PRN ×2 (17:05→19:47)
[2020-09-24] MEDS ORDERED: IPRATROPIUM/ALBUTEROL 3 ML AMPUL.NEB NEB PRN (17:11)
[2020-09-24] MEDS ORDERED: PROCHLORPERAZINE 10 MG/2 ML VIAL IV PRN ×2 (17:11→19:47)
[2020-09-24] MEDS ORDERED: MELATONIN 3 MG TABLET PO SCH (17:15)
[2020-09-24] MEDS ORDERED: PIPERACILLIN SODIUM/TAZOBACTAM 3.375 GM in DEXTROSE 5% IN WATER 50 ML IV SCH (17:15)
[2020-09-24] MEDS ORDERED: AZITHROMYCIN 500 MG in DEXTROSE 5% IN WATER 250 ML IV SCH (17:15)
--- NOTE | 2020-09-24 17:44 | Internal Med History&Physical ---
HPI History of Present Illness Patient information: Note initiated : 09/24/20 at 5:35 pm Service Date, if different from initiated Date: [] Patient: Reginald Gonzales 89 y/o M admitted on for "pos. COVID". Chief Complaint: [] History of present illness: Mr. Gonzales is a 89 year old M with a past medical history of COPD and a hypertension who was brought to the ER due to worsening shortness of breath. As per patient, his shortness of breath have been wo rsening. He had a positive Covid test at the [facility] 2 days ago. He also complains of generalized weakness. In the ER, chest x-ray showed small patchy right basilar infiltrate. Normally he intermittently needs home oxygen but he needs a 2 to 3 L oxygen for [id number]. He has a history of aspiration pneumonia. Other than the symptoms mentioned above, he is fine. Review of Systems Review of systems: Positive for shortness of breath and generalized weakness. All other systems were reviewed and are negative. 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) Fecal impaction in rectum (Acute) Fall (Acute) Pelvic fracture (Acute) Unable to bear weight (Acute) Advance care planning (Acute) Matta catheter in place (Acute) Altered mental status (Chronic) Shortness of breath (Acute) Compression fracture of T10 vertebra (Acute) Gallstones (Chronic) Compression fracture of T9 vertebra (Chronic) Altered level of consciousness (Chronic) Fall from slip, trip, or stumble (Chronic) Skin tear of elbow without complication (Chronic) Skin tear of forearm without complication (Chronic) Encounter for wound care (Chronic) Back pain (Chronic) Generalized weakness (Chronic) Constipation (Chronic) Weakness (Chronic) Confusion (Chronic) Recurrent falls (Chronic) Hydrocephalus in adult (Chronic) Atrial fibrillation by electrocardiography (Chronic) Disorder of epiglottis (Chronic) Shuffling gait (Chronic) Normal pressure hydrocephalus (Chronic) Parkinson disease (Chronic) COPD exacerbation (Chronic) Solitary lung nodule (Chronic) Dyspnea on exertion (Chronic) Diplopia (Chronic) Upper respiratory infection (Chronic) Asthma exacerbation (Chronic) Nephrolithiasis (Chronic) Urinary tract infection (Chronic) Chronic coughing (Chronic) Pneumonia (Chronic) Fecal impaction (Chronic) Urinary retention (Chronic) COPD (chronic obstructive pulmonary disease) (Chronic) Hypoxemia (Chronic) Dysphagia (Chronic) Cough (Chronic) Left shoulder pain (Chronic) Anemia (Chronic) Osteopenia determined by x-ray (Chronic) Kidney stones (Chronic) Community acquired bacterial pneumonia (Chronic) Rib pain on right side (Chronic) History of COPD (Chronic) Aspiration pneumonia (Chronic 05/27/16) Medical History Advance care planning (Acute) Patient and continues to refuse hospice. I do recommend hospice, as a believe that this 89-year-old male is unlikely to recover his mental status. NPH is been present for about 10 months, and it is been about 6 months since the VIDEO GAME TESTER shunt was placed, with no improvement. Patient has difficulty with speech, so mental status is difficult to assess, especially since his interjects every time I ask a question. He definitely is altered, and per his and caregiver, he is doing well today. I know that his mental status waxes and wanes, meaning that it is worse some days. We will continue closer follow-up with this patient, and try and help guide him and his regarding advance care planning. Currently the patient states he would like full treatment. Greater than 30 minutes spent in counseling, and end-of-life decision-making. 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 History of iron overload. No evidence of GI bleeding, per family. Check iron studies Monitor CBCs Aspiration pneumonia (Chronic 05/27/16) Asthma exacerbation (Chronic) Atrial fibrillation by electrocardiography (Chronic) Back pain (Chronic) Bronchitis, acute (Chronic) Chronic coughing (Chronic) Community acquired bacterial pneumonia (Chronic) Compression fracture of T10 vertebra (Acute) New finding on recent x-ray. DEXA scan ordered Follow-up with [facility] later today. Compression fracture of T9 vertebra (Chronic) Status post recent vertebroplasty with [facility], requesting records. Confusion (Chronic) Secondary to NPH and dementia Constipation (Chronic) MiraLAX daily and Colace as needed Increase fluid intake COPD (chronic obstructive pulmonary disease) (Chronic) Asthma/COPD Managed by Dr. Villatoro Restart Symbicort, Spiriva Continue albuterol Continue IS use at home COPD exacerbation (Chronic) Cough (Chronic) Diplopia (Chronic) Disorder of epiglottis (Chronic) After reported anesthetic complication in the with prolonged intubation, continues to have struggles with maintaining oral Dysphagia (Chronic) Prone to frequent aspiration. Will refer to continue speech therapy. Dyspnea on exertion (Chronic) Encounter for wound care (Chronic) Fall from slip, trip, or stumble (Chronic) Fecal impaction (Chronic) continue docusate stool softner and miralax increase activity. Talk to your physician about referral for colonoscopy Matta catheter in place (Acute) Currently unable to walk due to pelvic fracture pain and lower extremity weakness I strongly recommend that the Matta be removed, but patient's is refusing. Gallstones (Chronic) Generalized weakness (Chronic) History of COPD (Chronic) Hydrocephalus in adult (Chronic) NPH Status post VIDEO GAME TESTER shunt [address] Osorio Continues to follow with Dr. Osorio Hypoxemia (Chronic) Kidney stones (Chronic) Left shoulder pain (Chronic) Nephrolithiasis (Chronic) Normal pressure hydrocephalus (Chronic) With altered mental status. Status post VIDEO GAME TESTER shunt with Dr. Robertson, but no improvement of symptoms. Prognosis is poor for recovery of mental status. Osteopenia determined by x-ray (Chronic) Pain in thoracic spine (Chronic) Parkinson disease (Chronic) Pneumonia (Chronic) Recurrent falls (Chronic) Secondary to NPH and weakness Very high fall risk. Needs full assist with all activities of daily living Admit to [facility] at [facility] facility Rib pain on right side (Chronic) Shortness of breath (Acute) Per patient's this is acutely worsened compared to his baseline. Vital signs stable and afebrile. 2 view chest x-ray, CBC, CMP, and procalcitonin. Doubt pneumonia, sepsis, or systemic infection clinically, but will reassess or treat if indicated by the above studies. Advised Chelsea to keep oxygen on the patient at all times. Titrate level to maintain O2 sats between 93 to 98%. Shuffling gait (Chronic) Skin tear of elbow without complication (Chronic) Wound was cleaned and dressed per nursing protocol. Skin tear of forearm without complication (Chronic) Solitary lung nodule (Chronic) Unspecified asthma (Chronic) Upper respiratory infection (Chronic) Urinary retention (Chronic) cont flomax. avoid constipation Urinary tract infection (Chronic) Treated with Bactrim. No complaint of symptoms today. Matta removal recommended. Patient's refused Weakness (Chronic) Secondary to NPH Surgical History History of hernia surgery (Chronic) 1986 History of surgery (Chronic) Vertebroplasty T10 w/sed 11/27/19 Vertebroplasty T5, T8, T9 w/sed 10/31/19 History of tonsillectomy and adenoidectomy (Chronic) History of ventriculoperitoneal shunting (Chronic ~08/06/19) Dr. Robertson Family History Sister Breast cancer Father Dementia Mother Heart attack Social History marital status: smoking status: Never smoker alcohol intake frequency: holiday/special occasion only substance use type: does not use MEDS/ALLERGIES Home Medications and Allergies Home Medications Medication Instructions Recorded Confirmed Type Lactobacillus rhamnosus GG 1 cap PO BID #100 cap 03/12/18 08/12/20 Rx albuterol sulfate 90 mcg/actuation 1 inh INHALATION Q6HP PRN #18 g 11/25/19 08/12/20 Rx aerosol inhaler budesonide-formoterol HFA 160 2 puff INHALATION BID #1 g 11/25/19 08/12/20 Rx mcg-4.5 mcg/actuation aerosol inhaler tiotropium bromide 1.25 2 puff INHALATION QDAY PRN #1 g 11/25/19 08/12/20 Rx mcg/actuation mist for inhalation ipratropium 0.5 mg-albuterol 3 mg 3 ml INHALATION Q3H PRN #180 ml 01/13/20 08/12/20 Rx (2.5 mg base)/3 mL nebulization soln Multivitamin With Hensley 3 See Rx Instructions PO .COMPLEX 03/27/20 08/12/20 History acetaminophen 325 mg tablet See Rx Instructions PO .COMPLEX 03/27/20 08/12/20 History PRN tab celecoxib 200 mg capsule See Rx Instructions PO .COMPLEX 03/27/20 08/12/20 History ferrous sulfate 140 mg (45 mg See Rx Instructions PO .COMPLEX 03/27/20 08/12/20 History iron) tablet,extended release fluticasone furoate 200 See Rx Instructions INHALATION 03/27/20 08/12/20 History mcg/actuation blister powder for .COMPLEX inhalation oxygen See Rx Instructions INTRANASAL 03/27/20 08/12/20 History .COMPLEX Allergies Allergy/AdvReac Type Severity Reaction Status Date / Time lidocaine AdvReac Severe Difficulty Verified 09/24/20 13:44 Breathing hydrocodone AdvReac Intermediate "Sick, Verified 09/24/20 13:44 can't move, went crazy" prednisolone AdvReac Verified 09/24/20 13:44 EXAM Constitutional Vitals: Temp Pulse Resp BP Pulse Ox 97.8 F 82 20 146/64 93 09/24/20 13:36 09/24/20 16:10 09/24/20 17:09 09/24/20 14:56 09/24/20 17:09 Additional findings Additional findings: General - No acute distress Eyes - PERRLA, EOM intact ENT no rhinorrhea, no noticeable or palpable swelling Neck supple, no JVD, no thyromegaly Respiratory: Lungs -diminished breathing sounds, bibasilar crackles. No use of accessory muscles Cardiovascular - RRR no m/r/g, GI - Normal bowel sounds, no distended, soft. Extremeties - No edema, cyanosis or clubbing Hemo/lymphatic/immune no lymphadenopathy Neurological Alert and oriented, no focal neurological deficits. Psychiatry flat affect DATA Data Completed and Pending Labs: Labs from last 24 hours 09/24/20 09/24/20 09/24/20 14:10 14:10 14:10 WBC RBC Hgb Hct POC Hct 38 L MCV MCH MCHC RDW Plt Count MPV Neut % (Auto) Lymph % (Auto) Edwards % (Auto) Eos % (Auto) Baso % (Auto) Lymph # (Auto) Edwards # (Auto) Eos # (Auto) Baso # (Auto) Absolute Neutrophils VBG Lactic Acid POC Sodium 138 POC Potassium 4.2 POC Chloride 98 POC Total CO2 31 H POC BUN 26 H POC Creatinine 0.8 POC Glucose 109 H Hemoglobin A1c Pending Estim Average Glucose Pending POC WB Ioniz Calcium 1.17 Phosphorus Pending Magnesium Pending Ferritin Pending C-Reactive Protein Pending NT-Pro-B Natriuret Pep Pending 25-OH Vitamin D Total Pending 09/24/20 09/24/20 14:10 14:10 WBC 6.0 RBC 4.08 L Hgb 12.7 L Hct 40.1 L POC Hct MCV 98.3 MCH 31.1 MCHC 31.7 RDW 13.3 Plt Count 199 MPV 9.3 Neut % (Auto) 62.3 Lymph % (Auto) 21.0 Edwards % (Auto) 16.2 H Eos % (Auto) 0.3 Baso % (Auto) 0.2 Lymph # (Auto) 1.26 L Edwards # (Auto) 0.97 H Eos # (Auto) 0.02 Baso # (Auto) 0.01 Absolute Neutrophils 3.73 VBG Lactic Acid 1.0 POC Sodium POC Potassium POC Chloride POC Total CO2 POC BUN POC Creatinine POC Glucose Hemoglobin A1c Estim Average Glucose POC WB Ioniz Calcium Phosphorus Magnesium Ferritin C-Reactive Protein NT-Pro-B Natriuret Pep 25-OH Vitamin D Total A/P Narrative A/P Narrative: 1. Acute hypoxic respiratory failure Pulse ox Oxygen therapy to keep active saturation greater than 92% 2. Pneumonia, Covid 19, CAP or aspiratoin 3. Positive Covid 19 4. COPD exacerbation Blood culture Sputum culture MRSA screen Influenza AB is negative Azithromycin and Zosyn Inhalers Lovenox 60 mg twice daily Dexamethasone 6 mg p.o. daily Thiamine, vitamin D, melatonin 25 hydroxy vitamin D, CRP, ferritin, lactic acid, calcitonin, troponin Speech pathology consult 5. HTN Continue home medication 6. 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
[2020-09-24 17:49] LABS: proBNP 518.8 pg/mL (<450.0)
[2020-09-24 17:56] LABS: Ferritin 435.5 ng/mL (30.0-400.0)
[2020-09-24 18:00] LABS: Hemoglobin A1C 5.6 % Hgb (4.0-6.0)
[2020-09-24 18:08] LABS: Phosphorous 3.2 mg/dL (2.5-4.5)
[2020-09-24] MEDS ORDERED: DONEPEZIL 5 MG TABLET PO SCH (21:00)
[2020-09-24] MEDS ORDERED: ENOXAPARIN 40 MG/0.4 ML SYRINGE SQ SCH (21:00)
[2020-09-24] MEDS ORDERED: BUDESONIDE 0.5 MG/2 ML AMPUL.NEB NEB SCH ×2 (21:00)
[2020-09-24] MEDS ORDERED: DOCUSATE SODIUM 100 MG CAPSULE PO SCH (21:00)
[2020-09-24] MEDS ORDERED: 0.9 % SODIUM CHLORIDE 10 ML SYRINGE IV SCH (22:00)
[2020-09-24] MEDS: DEXAMETHASONE 4 MG TABLET PO SCH (22:08)
[2020-09-24] MEDS: DOCUSATE SODIUM 100 MG CAPSULE PO SCH (22:40)
[2020-09-24] MEDS: ENOXAPARIN 60 MG/0.6 ML SYRINGE SQ SCH (22:40)
[2020-09-24] MEDS: PIPERACILLIN SODIUM/TAZOBACTAM 3.375 GM in DEXTROSE 5% IN WATER 50 ML IV SCH (22:40)
[2020-09-24] MEDS: 0.9 % SODIUM CHLORIDE 10 ML SYRINGE IV SCH (22:41)
[2020-09-24] MEDS: AZITHROMYCIN 500 MG in DEXTROSE 5% IN WATER 250 ML IV SCH (23:38)
[2020-09-25] MEDS: PIPERACILLIN SODIUM/TAZOBACTAM 3.375 GM in DEXTROSE 5% IN WATER 50 ML IV SCH ×4 (03:49→22:18)
[2020-09-25] MEDS: 0.9 % SODIUM CHLORIDE 10 ML SYRINGE IV SCH ×3 (04:42→20:53)
[2020-09-25 07:19] LABS: Basophils # (Auto) 0.02 K/mcL (0.00-0.20); Basophils % (Auto) 0.4 % (0.0-2.0); Eosinophils # (Auto) 0.04 K/mcL (0.00-0.70); Eosinophils % (Auto) 0.8 % (0.0-7.0); Hematocrit 38.5 % (41.0-55.0); Hemoglobin 12.1 g/dL (13.5-16.5); Lymphocytes # (Auto) 1.58 K/mcL (1.50-4.80); Lymphocytes % (Auto) 31.8 % (15.0-49.0); Mean Cell Volume 97.7 fL (80.0-100.0); Mean Corpuscular HGB Conc 31.4 g/dL (31.0-36.0); Mean Platelet Volume 9.7 fL (7.4-10.4); Monocytes # (Auto) 0.69 K/mcL (0.10-0.90); Monocytes % (Auto) 13.9 % (1.0-12.0); Neutrophils % (Auto) 53.1 % (38.0-78.0); Platelet Count 199 K/mcL (140-440); RBC 3.94 M/mcL (4.50-5.90); Red Cell Distribution Width 13.1 % (11.5-14.5)
[2020-09-25] MEDS ORDERED: PANTOPRAZOLE 40 MG TABLET PO SCH (07:30)
[2020-09-25] MEDS ORDERED: VITAMIN D3 1,000 UNIT TABLET PO SCH (09:00)
[2020-09-25] MEDS ORDERED: THIAMINE 100 MG TABLET PO SCH (09:00)
[2020-09-25] MEDS ORDERED: DEXTROSE 31 GM ORAL.SUSP PO PRN (09:02)
[2020-09-25] MEDS ORDERED: DEXTROSE 50% 50 ML VIAL IV PRN (09:02)
[2020-09-25] MEDS: DOCUSATE SODIUM 100 MG CAPSULE PO SCH ×2 (10:05→20:53)
[2020-09-25] MEDS: THIAMINE 100 MG TABLET PO SCH (10:06)
[2020-09-25] MEDS: PANTOPRAZOLE 40 MG TABLET PO SCH (10:06)
[2020-09-25] MEDS: ENOXAPARIN 60 MG/0.6 ML SYRINGE SQ SCH ×2 (10:10→20:53)
[2020-09-25] MEDS: VITAMIN D3 1,000 UNIT TABLET PO SCH (10:10)
--- NOTE | 2020-09-25 11:32 | Internal Med Progress Note ---
SUBJECTIVE Subjective Patient information: Note initiated : 09/25/20 at 11:28 am Service Date, if different from initiated Date: [] Patient: Reginald Gonzales 89 y/o M admitted on 09/24/20 for "pos. COVID". Chief Complaint: [] Mr. Gonzales is a 89 year old M with a past medical history of COPD and a hypert ension who was brought to the ER due to worsening shortness of breath. As per patient, his shortness of breath have been worsening. He had a positive Covid test at the [facility] 2 days ago. He also complains of generalized weakness. In the ER, chest x-ray showed small patchy right basilar infiltrate. Normally he intermittently needs home oxygen but he needs a 2 to 3 L oxygen for [id number]. He has a history of aspiration pneumonia. Other than the symptoms mentioned above, he is fine. 09/25 Patient is alert and awake but he does not answer my questions. He is now on 3 L oxygen Ferritin 435.5 CRP 3.0 BNP 519 Vitamin D 80 Continue current treatment. I may increase steroid and repeat CRP tomorrow. Review of Systems Review of systems: Positive for shortness of breath and generalized weakness. All other systems were reviewed and are negative. Constitutional Vitals: Vital Signs Temp Pulse Resp BP Pulse Ox 97.8 F 72 19 140/95 91 09/25/20 04:01 09/24/20 20:01 09/25/20 08:01 09/25/20 08:01 09/25/20 08:01 Period Temp Pulse Resp BP Sys/Eduardo Pulse Ox Last 24 Hr 97.8 F-98.4 F 59-82 14-22 137-158/48-98 91-100 Intake and Output 09/24/20 09/25/20 09/25/20 21:59 05:59 13:59 Intake Total 1000 450 Output Total 300 675 Balance 700 -225 Weight 59.738 kg Intake & Output: Intake & Output 09/24/20 09/25/20 09/25/20 21:59 05:59 13:59 Intake Total 1000 450 Output Total 300 675 Balance 700 -225 Weight 59.738 kg Intake: IV 1000 350 Sodium Chloride 0.9% 1,000 ml @ 1000 Wide Open IV .Q0M ONE Rx#: [id number] Zithromax 500 mg In Dextrose 5% 250 in Water 250 ml @ 250 mls/hr IV DAILY [facility] Rx#:[id number] Zosyn 3.375 gm In Dextrose 5% 100 in Water 50 ml @ 100 mls/hr IV Q6H [facility] Rx#:[id number] Oral 100 Output: Void Amount 300 675 Other: Urine Appearance Clear Clear Urine Color Bright Yellow Straw # Bowel Movements 0 Additional findings Additional findings: General - No acute distress Eyes -no conjunctiva injection ENT no rhinorrhea, no noticeable or palpable swelling Neck no JVD, no thyromegaly Respiratory: Lungs -diminished breathing sounds, bibasilar crackles. No use of accessory muscles Cardiovascular - RRR no m/r/g, GI - Normal bowel sounds, no distended, soft. Extremeties - No edema, cyanosis or clubbing Hemo/lymphatic/immune no lymphadenopathy Neurological Alert and oriented. Psychiatry does not answer questions OBJ DATA Labs CBC & Chem 7: 09/25/20 04:59 Labs: Abnormal Lab Results 09/25/20 09/24/20 09/24/20 04:59 14:10 14:10 RBC 3.94 L Hgb 12.1 L Hct 38.5 L POC Hct 38 L Duval % (Auto) 13.9 H Lymph # (Auto) Duval # (Auto) POC Total CO2 31 H POC BUN 26 H POC Glucose 109 H Ferritin 435.5 H C-Reactive Protein 3.00 H NT-Pro-B Natriuret Pep 518.8 H 09/24/20 14:10 RBC 4.08 L Hgb 12.7 L Hct 40.1 L POC Hct Duval % (Auto) 16.2 H Lymph # (Auto) 1.26 L Duval # (Auto) 0.97 H POC Total CO2 POC BUN POC Glucose Ferritin C-Reactive Protein NT-Pro-B Natriuret Pep Meds: Medications Acetaminophen (Tylenol) 650 mg PO Q6HP PRN; Protocol PRN Reason: Per Pain Protocol/Fever > 101 Hydrocodone Bitart/Acetaminophen ([place] 5/325mg) 1 tab PO Q6HP PRN; Protocol PRN Reason: Per Pain Protocol Albuterol/Ipratropium (Duoneb) 3 ml NEB Q6HRT PRN PRN Reason: Shortness Of Breath Or Wheezing Dexamethasone (Decadron) 6 mg PO DAILY [facility] Last Admin: 09/24/20 22:08 Dose: Not Given Documented by: Dextrose (Dextrose 50%) 0 ml IV UD PRN PRN Reason: Hypoglycemia Diagnostic Test (Pha) (Accu-Chek) 1 each FS [facility] Docusate Sodium (Colace) 100 mg PO BID [facility] Last Admin: 09/25/20 10:05 Dose: 100 mg Documented by: Donepezil HCl (Aricept) 5 mg PO HS [facility] Enoxaparin Sodium (Lovenox) 60 mg SQ BID [facility] Last Admin: 09/25/20 10:10 Dose: 60 mg Documented by: Glucose (Insta-Glucose) 15 gm PO PRN PRN PRN Reason: Hypoglycemia Azithromycin 500 mg/ Dextrose 250 mls @ 250 mls/hr IV DAILY [facility]; Protocol Stop: 09/26/20 09:59 Last Infusion: 09/25/20 00:38 Dose: Infused Documented by: Piperacillin Sod/Tazobactam (Sod 3.375 gm/ Dextrose) 50 mls @ 100 mls/hr IV Q6H [facility]; Protocol Last Admin: 09/25/20 10:05 Dose: 100 mls/hr Documented by: Insulin Human Lispro (Humalog) 0 unit SQ [facility]; Protocol Melatonin (Melatonin 3mg Tablet) 3 mg PO HSP [facility] Pantoprazole Sodium (Protonix) 40 mg PO QAMAC [facility] Last Admin: 09/25/20 10:06 Dose: 40 mg Documented by: Pneumococcal Polyvalent Vaccine (Pneumovax 23) 0.5 ml IM .ONCE ONE Stop: 09/27/20 10:01 Prochlorperazine (Compazine) 5 mg IV Q6HP PRN PRN Reason: Nausea And Vomiting Sodium Chloride (Saline Flush) 10 ml IV Q8 [facility] Last Admin: 09/25/20 04:42 Dose: 10 ml Documented by: Tamsulosin HCl (Flomax) 0.4 mg PO HS [facility] Thiamine HCl (Vitamin B1) 100 mg PO DAILY [facility] Last Admin: 09/25/20 10:06 Dose: 100 mg Documented by: Vitamin D (Vitamin D3) 2,000 unit PO DAILY [facility] Last Admin: 09/25/20 10:10 Dose: 2,000 unit Documented by: A/P Narrative A/P Narrative: 1. Acute hypoxic respiratory failure Pulse ox Oxygen therapy to keep active saturation greater than 92% 2. Pneumonia, Covid 19, CAP or aspiratoin 3. Positive Covid 19 4. COPD exacerbation Blood culture Sputum culture MRSA screen Influenza AB is negative Azithromycin and Zosyn Inhalers Lovenox 60 mg twice daily Dexamethasone 6 mg p.o. daily Thiamine, vitamin D, melatonin 25 hydroxy vitamin D, CRP, ferritin, lactic acid, calcitonin, troponin Speech pathology consult 5. HTN Continue home medication 6. DVT prophylaxis: Lovenox 7. CODE STATUS: Rn Office Spent With Patient Time: Total time spent is greater than 50% in coordination of care (as documented) at patient's floor/unit and/or counseling patient: QUALITY VTE Deep Vein Thrombosis/Pulmonary Embolism Present on Admission: No
--- NOTE | 2020-09-25 11:42 | Event Note ---
Event Note Event Note: Advanced Care Planning Documents: Pt's decisional Capacity: No POLST form completed: not. I called his (Chelsea at [phone], POA) and explained CPR and intubation in detail to her. She agreed with CPR and intubation.
[2020-09-25] MEDS: INSULIN LISPRO 1 UNIT/0.01 ML UNIT SQ SCH ×3 (13:07→22:31)
[2020-09-25] MEDS: DEXAMETHASONE 4 MG TABLET PO SCH (13:07)
[2020-09-25] MEDS: AZITHROMYCIN 500 MG in DEXTROSE 5% IN WATER 250 ML IV SCH (13:09)
[2020-09-25] MEDS: DONEPEZIL 10 MG TABLET PO SCH (20:53)
[2020-09-25] MEDS: TAMSULOSIN 0.4 MG CAPSULE PO SCH (20:53)
[2020-09-25] MEDS ORDERED: DEXAMETHASONE 4 MG TABLET PO SCH (21:00)
[2020-09-26] MEDS: PIPERACILLIN SODIUM/TAZOBACTAM 3.375 GM in DEXTROSE 5% IN WATER 50 ML IV SCH ×4 (02:42→21:56)
[2020-09-26] MEDS: 0.9 % SODIUM CHLORIDE 10 ML SYRINGE IV SCH ×3 (05:43→21:56)
[2020-09-26 06:02] LABS: Basophils # (Auto) 0.01 K/mcL (0.00-0.20); Basophils % (Auto) 0.2 % (0.0-2.0); Eosinophils # (Auto) 0 K/mcL (0.00-0.70); Eosinophils % (Auto) 0 % (0.0-7.0); Hematocrit 40.3 % (41.0-55.0); Hemoglobin 12.8 g/dL (13.5-16.5); Lymphocytes # (Auto) 0.76 K/mcL (1.50-4.80); Lymphocytes % (Auto) 14.3 % (15.0-49.0); Mean Cell Volume 96.9 fL (80.0-100.0); Mean Corpuscular HGB Conc 31.8 g/dL (31.0-36.0); Mean Platelet Volume 9.5 fL (7.4-10.4); Monocytes # (Auto) 0.26 K/mcL (0.10-0.90); Monocytes % (Auto) 4.9 % (1.0-12.0); Neutrophils % (Auto) 80.6 % (38.0-78.0); Platelet Count 230 K/mcL (140-440); RBC 4.16 M/mcL (4.50-5.90); WBC 5.3 K/mcL (4.5-11.0)
[2020-09-26 06:30] LABS: CRP,High Sensitivity 14.9 mg/L (1.0-3.0)
[2020-09-26] MEDS: INSULIN LISPRO 1 UNIT/0.01 ML UNIT SQ SCH ×4 (08:13→21:57)
[2020-09-26] MEDS: THIAMINE 100 MG TABLET PO SCH (08:18)
[2020-09-26] MEDS: PANTOPRAZOLE 40 MG TABLET PO SCH (08:18)
[2020-09-26] MEDS: POLYETHYLENE GLYCOL 3350 17 GM PACKET PO SCH (08:18)
[2020-09-26] MEDS: DOCUSATE SODIUM 100 MG CAPSULE PO SCH ×2 (08:18→21:55)
[2020-09-26] MEDS: AZITHROMYCIN 500 MG in DEXTROSE 5% IN WATER 250 ML IV SCH (08:33)
[2020-09-26] MEDS: DEXAMETHASONE 10 MG/ML VIAL IV SCH ×3 (08:34→21:58)
[2020-09-26] MEDS: ENOXAPARIN 60 MG/0.6 ML SYRINGE SQ SCH ×2 (08:34→21:55)
[2020-09-26] MEDS: VITAMIN D3 1,000 UNIT TABLET PO SCH (08:34)
[2020-09-26] MEDS: TERBINAFINE CRM 1% TUBE 15GM TOPICAL SCH ×2 (08:36→21:56)
[2020-09-26] MEDS: LACTOBACILLUS 1 CAPSULE PO SCH (08:39)
--- NOTE | 2020-09-26 13:33 | Internal Med Progress Note ---
SUBJECTIVE Subjective Patient information: Note initiated : 09/26/20 at 1:28 pm Service Date, if different from initiated Date: [] Patient: Reginald Gonzales 89 y/o M admitted on 09/24/20 for "pos. COVID". Chief Complaint: [] Mr. Gonzales is a 89 year old M with a past medical history of COPD and a hypert ension who was brought to the ER due to worsening shortness of breath. As per patient, his shortness of breath have been worsening. He had a positive Covid test at the [facility] clinic 2 days ago. He also complains of generalized weakness. In the ER, chest x-ray showed small patchy right basilar infiltrate. Normally he intermittently needs home oxygen but he needs a 2 to 3 L oxygen for [id number]. He has a history of aspiration pneumonia. Other than the symptoms mentioned above, he is fine. 09/25 Patient is alert and awake but he does not answer my questions. He is now on 3 L oxygen Ferritin 435.5 CRP 3.0 BNP 519 Vitamin D 80 Continue current treatment. I may increase steroid and repeat CRP tomorrow. 09/26 Patient does not have any new complaints. He still has mild cough. He is now on 2.5 L CRP 14.9. I will increased dexamethasone to 5 mg IV q 6. hours Review of Systems Review of systems: Positive for shortness of breath and generalized weakness. All other systems were reviewed and are negative. Constitutional Vitals: Vital Signs Temp Pulse Resp BP Pulse Ox 98.6 F 71 18 132/90 99 09/26/20 12:01 09/26/20 03:40 09/26/20 12:01 09/26/20 12:01 09/26/20 12:01 Period Temp Pulse Resp BP Sys/Eduardo Pulse Ox Last 24 Hr 97.6 F-98.6 F 71-85 - 126-169/74-110 92-100 Intake and Output 09/25/20 09/26/20 09/26/20 21:59 05:59 13:59 Intake Total 420 460 340 Output Total 1 226 350 Balance 419 234 -10 Weight 58.831 kg Intake & Output: Intake & Output 09/25/20 09/26/20 09/26/20 21:59 05:59 13:59 Intake Total 420 460 340 Output Total 1 226 350 Balance 419 234 -10 Weight 58.831 kg Intake: IV 300 100 Zithromax 500 mg In Dextrose 5% 250 in Water 250 ml @ 250 mls/hr IV DAILY [facility] Rx#:[id number] Zosyn 3.375 gm In Dextrose 5% 50 100 in Water 50 ml @ 100 mls/hr IV Q6H [facility] Rx#:[id number] Oral 120 360 340 Output: Void Amount 225 350 # of times incontinent of urine 1 1 Other: Meal Breakfast Percent of Meal Consumed 100% Urine Appearance Clear Clear Clear Urine Color Pale Pale Urine Odor Normal Normal # Voids 1 Additional findings Additional findings: General - No acute distress Eyes -no conjunctiva injection ENT no rhinorrhea, no noticeable or palpable swelling Neck no JVD, no thyromegaly Respiratory: Lungs -diminished breathing sounds, bibasilar crackles. No use of accessory muscles Cardiovascular - RRR no m/r/g, GI - Normal bowel sounds, no distended, soft. Extremeties - No edema, cyanosis or clubbing Hemo/lymphatic/immune no lymphadenopathy Neurological Alert and oriented. Psychiatry does not answer questions OBJ DATA Labs CBC & Chem 7: 09/26/20 04:20 Labs: Abnormal Lab Results 09/26/20 09/26/20 09/25/20 04:20 04:20 04:59 RBC 4.16 L 3.94 L Hgb 12.8 L 12.1 L Hct 40.3 L 38.5 L POC Hct Neut % (Auto) 80.6 H Lymph % (Auto) 14.3 L [place] % (Auto) 13.9 H Lymph # (Auto) 0.76 L [place] # (Auto) POC Total CO2 POC BUN POC Glucose Ferritin C-Reactive Protein C-React Prot High Sens 14.9 H NT-Pro-B Natriuret Pep 09/24/20 09/24/20 09/24/20 14:10 14:10 14:10 RBC 4.08 L Hgb 12.7 L Hct 40.1 L POC Hct 38 L Neut % (Auto) Lymph % (Auto) [place] % (Auto) 16.2 H Lymph # (Auto) 1.26 L [place] # (Auto) 0.97 H POC Total CO2 31 H POC BUN 26 H POC Glucose 109 H Ferritin 435.5 H C-Reactive Protein 3.00 H C-React Prot High Sens NT-Pro-B Natriuret Pep 518.8 H Meds: Medications Acetaminophen (Tylenol) 650 mg PO Q6HP PRN; Protocol PRN Reason: Per Pain Protocol/Fever > 101 Hydrocodone Bitart/Acetaminophen ([place] 5/325mg) 1 tab PO Q6HP PRN; Protocol PRN Reason: Per Pain Protocol Albuterol/Ipratropium (Duoneb) 3 ml NEB Q6HRT PRN PRN Reason: Shortness Of Breath Or Wheezing Dexamethasone (Decadron) 5 mg IV Q6H [facility] Last Admin: 09/26/20 08:34 Dose: 5 mg Documented by: Dextrose (Dextrose 50%) 0 ml IV UD PRN PRN Reason: Hypoglycemia Diagnostic Test (Pha) (Accu-Chek) 1 each FS [facility] Last Admin: 09/26/20 11:20 Dose: 1 each Documented by: Docusate Sodium (Colace) 100 mg PO BID [facility] Last Admin: 09/26/20 08:18 Dose: 100 mg Documented by: Donepezil HCl (Aricept) 5 mg PO HS [facility] Last Admin: 09/25/20 20:53 Dose: 5 mg Documented by: Enoxaparin Sodium (Lovenox) 60 mg SQ BID [facility] Last Admin: 09/26/20 08:34 Dose: 60 mg Documented by: Glucose (Insta-Glucose) 15 gm PO PRN PRN PRN Reason: Hypoglycemia Piperacillin Sod/Tazobactam (Sod 3.375 gm/ Dextrose) 50 mls @ 100 mls/hr IV Q6H [facility]; Protocol Last Admin: 09/26/20 08:31 Dose: 100 mls/hr Documented by: Insulin Human Lispro (Humalog) 0 unit SQ [facility]; Protocol Last Admin: 09/26/20 11:20 Dose: Not Given Documented by: Lactobacillus Rhamnosus (Culturelle) 1 cap PO DAILY [facility] Last Admin: 09/26/20 08:39 Dose: 1 cap Documented by: Melatonin (Melatonin 3mg Tablet) 3 mg PO HSP [facility] Pantoprazole Sodium (Protonix) 40 mg PO QAMAC [facility] Last Admin: 09/26/20 08:18 Dose: 40 mg Documented by: Pneumococcal Polyvalent Vaccine (Pneumovax 23) 0.5 ml IM .ONCE ONE Stop: 09/27/20 10:01 Polyethylene Glycol (Miralax) 17 gm PO DAILY [facility] Last Admin: 09/26/20 08:18 Dose: 17 gm Documented by: Prochlorperazine (Compazine) 5 mg IV Q6HP PRN PRN Reason: Nausea And Vomiting Sodium Chloride (Saline Flush) 10 ml IV Q8 [facility] Last Admin: 09/26/20 05:43 Dose: 10 ml Documented by: Tamsulosin HCl (Flomax) 0.4 mg PO HS [facility] Last Admin: 09/25/20 20:53 Dose: 0.4 mg Documented by: Terbinafine HCl (Lamisil Crm 1%) 1 dose TOPICAL BID [facility] Last Admin: 09/26/20 08:36 Dose: Not Given Documented by: Thiamine HCl (Vitamin B1) 100 mg PO DAILY [facility] Last Admin: 09/26/20 08:18 Dose: 100 mg Documented by: Vitamin D (Vitamin D3) 2,000 unit PO DAILY [facility] Last Admin: 09/26/20 08:34 Dose: 2,000 unit Documented by: A/P Narrative A/P Narrative: 1. Acute hypoxic respiratory failure Pulse ox Oxygen therapy to keep active saturation greater than 92% he Is now on 2.5 L 2. Pneumonia, Covid 19, CAP or aspiratoin 3. Positive Covid 19 4. COPD exacerbation Blood culture pending Sputum culture - Gram Positive Cocci in Chains MRSA screen negative Influenza AB is negative Azithromycin and Zosyn Inhalers Lovenox 60 mg twice daily Increased dexamethasone to 5 mg IV every 6 hours. Thiamine, vitamin D, melatonin 25 hydroxy vitamin D CRP 14.9 ferritin 435.5 lactic acid 1.6 troponin < 0.01 x 2 Speech pathology consult 5. HTN Continue home medication 6. 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
[2020-09-26] MEDS: IPRATROPIUM/ALBUTEROL 3 ML AMPUL.NEB NEB PRN (19:59)
[2020-09-26] MEDS: TAMSULOSIN 0.4 MG CAPSULE PO SCH (21:55)
[2020-09-26] MEDS: DONEPEZIL 10 MG TABLET PO SCH (21:55)
[2020-09-26] MEDS: MELATONIN 3 MG TABLET PO SCH (22:14)
[2020-09-27] MEDS: PIPERACILLIN SODIUM/TAZOBACTAM 3.375 GM in DEXTROSE 5% IN WATER 50 ML IV SCH ×4 (03:12→20:51)
[2020-09-27] MEDS: DEXAMETHASONE 10 MG/ML VIAL IV SCH ×4 (03:13→20:53)
[2020-09-27] MEDS: 0.9 % SODIUM CHLORIDE 10 ML SYRINGE IV SCH ×3 (06:02→20:54)
[2020-09-27 07:01] LABS: Basophils # (Auto) 0.01 K/mcL (0.00-0.20); Basophils % (Auto) 0.1 % (0.0-2.0); Eosinophils # (Auto) 0.14 K/mcL (0.00-0.70); Eosinophils % (Auto) 1.7 % (0.0-7.0); Hematocrit 40.6 % (41.0-55.0); Hemoglobin 13.1 g/dL (13.5-16.5); Lymphocytes # (Auto) 0.75 K/mcL (1.50-4.80); Mean Cell Volume 96.4 fL (80.0-100.0); Mean Corpuscular HGB Conc 32.3 g/dL (31.0-36.0); Mean Platelet Volume 9.4 fL (7.4-10.4); Monocytes # (Auto) 0.35 K/mcL (0.10-0.90); Monocytes % (Auto) 4.2 % (1.0-12.0); Platelet Count 238 K/mcL (140-440); RBC 4.21 M/mcL (4.50-5.90); WBC 8.3 K/mcL (4.5-11.0)
[2020-09-27 07:53] LABS: ALT/SGPT 33 U/L (<40); AST/SGOT 27 U/L (<40); Albumin 2.8 gm/dL (3.2-5.2); Albumin/Globulin Ratio 0.9 (1.0-2.3); Alkaline Phosphatase 243 U/L (39-117); Bilirubin,Total 0.6 mg/dL (0.1-1.0); Blood Urea Nitrogen 27 mg/dL (8-23); Calcium 8.5 mg/dL (8.6-10.4); Carbon Dioxide 23 mmol/L (22-30); Chloride 100 mmol/L (96-108); Globulin 3.1 gm/dL (2.2-3.7); Glomerular Filtration Rate 66; Glucose 121 mg/dL (70-105)
[2020-09-27] MEDS ORDERED: PNEUMOCOCCAL 23-VAL P-SAC VAC 0.5 ML SYRINGE IM ONE (10:00)
[2020-09-27] MEDS: PANTOPRAZOLE 40 MG TABLET PO SCH (10:09)
[2020-09-27] MEDS: LACTOBACILLUS 1 CAPSULE PO SCH (10:09)
[2020-09-27] MEDS: VITAMIN D3 1,000 UNIT TABLET PO SCH (10:10)
[2020-09-27] MEDS: THIAMINE 100 MG TABLET PO SCH (10:10)
[2020-09-27] MEDS: DOCUSATE SODIUM 100 MG CAPSULE PO SCH ×2 (10:10→20:53)
[2020-09-27] MEDS: TERBINAFINE CRM 1% TUBE 15GM TOPICAL SCH ×2 (10:11→20:51)
[2020-09-27] MEDS: POLYETHYLENE GLYCOL 3350 17 GM PACKET PO SCH (10:12)
[2020-09-27] MEDS: ENOXAPARIN 60 MG/0.6 ML SYRINGE SQ SCH ×2 (10:26→20:51)
[2020-09-27] MEDS: INSULIN LISPRO 1 UNIT/0.01 ML UNIT SQ SCH ×4 (11:14→21:50)
--- NOTE | 2020-09-27 14:38 | Internal Med Progress Note ---
SUBJECTIVE Subjective Patient information: Note initiated : 09/27/20 at 2:35 pm Service Date, if different from initiated Date: [] Patient: Reginald Gonzales 89 y/o M admitted on 09/24/20 for "pos. COVID". Chief Complaint: [] Mr. Gonzales is a 89 year old M with a past medical history of COPD and a hyperte nsion who was brought to the ER due to worsening shortness of breath. As per patient, his shortness of breath have been worsening. He had a positive Covid test at the [facility] clinic 2 days ago. He also complains of generalized weakness. In the ER, chest x-ray showed small patchy right basilar infiltrate. Normally he intermittently needs home oxygen but he needs a 2 to 3 L oxygen for [id number]. He has a history of aspiration pneumonia. Other than the symptoms mentioned above, he is fine. 09/25 Patient is alert and awake but he does not answer my questions. He is now on 3 L oxygen Ferritin 435.5 CRP 3.0 BNP 519 Vitamin D 80 Continue current treatment. I may increase steroid and repeat CRP tomorrow. 09/26 Patient does not have any new complaints. He still has mild cough. He is now on 2.5 L CRP 14.9. I will increased dexamethasone to 5 mg IV q 6. hours 09/27 No overnight acute events. Heart rate 50, he is on 2.5 L Creatinine 1.0 CRP went down to 8.0 from 14.9 yesterday. Continue current dose of dexamethasone Review of Systems Review of systems: Positive for shortness of breath and generalized weakness. All other systems were reviewed and are negative. Constitutional Vitals: Vital Signs Temp Pulse Resp BP Pulse Ox 98.6 F 57 L 14 95/69 93 09/27/20 12:01 09/27/20 12:01 09/27/20 08:01 09/27/20 12:01 09/27/20 12:01 Period Temp Pulse Resp BP Sys/Eduardo Pulse Ox Last 24 Hr 96.8 F-98.6 F 50-62 13-29 95-145/69-122 84-100 Intake and Output 09/27/20 09/27/20 09/27/20 05:59 13:59 21:59 Intake Total 100 290 Output Total 300 300 Balance -200 -10 Intake & Output: Intake & Output 09/27/20 09/27/20 09/27/20 05:59 13:59 21:59 Intake Total 100 290 Output Total 300 300 Balance -200 -10 Intake: IV 100 50 Zosyn 3.375 gm In Dextrose 5% 100 50 in Water 50 ml @ 100 mls/hr IV Q6H [facility] Rx#:[id number] Oral 240 Output: Void Amount 300 300 Other: Meal Lunch Percent of Meal Consumed 100% Urine Appearance Clear Urine Color Bright Yellow Dark Yellow Additional findings Additional findings: General - No acute distress Eyes -no conjunctiva injection ENT no rhinorrhea, no noticeable or palpable swelling Neck no JVD, no thyromegaly Respiratory: Lungs -diminished breathing sounds, bibasilar crackles. No use of accessory muscles Cardiovascular - RRR no m/r/g, GI - Normal bowel sounds, no distended, soft. Extremeties - No edema, cyanosis or clubbing Hemo/lymphatic/immune no lymphadenopathy Neurological Alert and oriented. Psychiatry does not answer questions OBJ DATA Labs CBC & Chem 7: 09/27/20 04:21 09/27/20 04:21 Labs: Abnormal Lab Results 09/27/20 09/27/20 09/27/20 04:21 04:21 04:21 RBC 4.21 L Hgb 13.1 L Hct 40.6 L Neut % (Auto) 85.0 H Lymph % (Auto) 9.0 L [place] % (Auto) Lymph # (Auto) 0.75 L [place] # (Auto) BUN 27 H Glucose 121 H Calcium 8.5 L Ferritin Alkaline Phosphatase 243 H C-Reactive Protein C-React Prot High Sens 8.0 H NT-Pro-B Natriuret Pep Albumin 2.8 L Albumin/Globulin Ratio 0.9 L 09/26/20 09/26/20 09/25/20 04:20 04:20 04:59 RBC 4.16 L 3.94 L Hgb 12.8 L 12.1 L Hct 40.3 L 38.5 L Neut % (Auto) 80.6 H Lymph % (Auto) 14.3 L [place] % (Auto) 13.9 H Lymph # (Auto) 0.76 L [place] # (Auto) BUN Glucose Calcium Ferritin Alkaline Phosphatase C-Reactive Protein C-React Prot High Sens 14.9 H NT-Pro-B Natriuret Pep Albumin Albumin/Globulin Ratio 09/24/20 09/24/20 14:10 14:10 RBC 4.08 L Hgb 12.7 L Hct 40.1 L Neut % (Auto) Lymph % (Auto) [place] % (Auto) 16.2 H Lymph # (Auto) 1.26 L [place] # (Auto) 0.97 H BUN Glucose Calcium Ferritin 435.5 H Alkaline Phosphatase C-Reactive Protein 3.00 H C-React Prot High Sens NT-Pro-B Natriuret Pep 518.8 H Albumin Albumin/Globulin Ratio Meds: Medications Acetaminophen (Tylenol) 650 mg PO Q6HP PRN; Protocol PRN Reason: Per Pain Protocol/Fever > 101 Hydrocodone Bitart/Acetaminophen ([place] 5/325mg) 1 tab PO Q6HP PRN; Protocol PRN Reason: Per Pain Protocol Albuterol/Ipratropium (Duoneb) 3 ml NEB Q6HRT PRN PRN Reason: Shortness Of Breath Or Wheezing Last Admin: 09/26/20 19:59 Dose: 3 ml Documented by: Dexamethasone (Decadron) 5 mg IV Q6H [facility] Last Admin: 09/27/20 10:35 Dose: 5 mg Documented by: Dextrose (Dextrose 50%) 0 ml IV UD PRN PRN Reason: Hypoglycemia Diagnostic Test (Pha) (Accu-Chek) 1 each FS [facility] Last Admin: 09/27/20 11:13 Dose: 1 each Documented by: Docusate Sodium (Colace) 100 mg PO BID [facility] Last Admin: 09/27/20 10:10 Dose: 100 mg Documented by: Donepezil HCl (Aricept) 5 mg PO HS [facility] Last Admin: 09/26/20 21:55 Dose: 5 mg Documented by: Enoxaparin Sodium (Lovenox) 60 mg SQ BID [facility] Last Admin: 09/27/20 10:26 Dose: 60 mg Documented by: Glucose (Insta-Glucose) 15 gm PO PRN PRN PRN Reason: Hypoglycemia Piperacillin Sod/Tazobactam (Sod 3.375 gm/ Dextrose) 50 mls @ 100 mls/hr IV Q6H [facility]; Protocol Last Infusion: 09/27/20 10:45 Dose: Infused Documented by: Insulin Human Lispro (Humalog) 0 unit SQ [facility]; Protocol Last Admin: 09/27/20 11:14 Dose: 1 unit Documented by: Lactobacillus Rhamnosus (Culturelle) 1 cap PO DAILY [facility] Last Admin: 09/27/20 10:09 Dose: 1 cap Documented by: Melatonin (Melatonin 3mg Tablet) 3 mg PO HSP [facility] Last Admin: 09/26/20 22:14 Dose: 3 mg Documented by: Pantoprazole Sodium (Protonix) 40 mg PO QAMAC [facility] Last Admin: 09/27/20 10:09 Dose: 40 mg Documented by: Polyethylene Glycol (Miralax) 17 gm PO DAILY [facility] Last Admin: 09/27/20 10:12 Dose: 17 gm Documented by: Prochlorperazine (Compazine) 5 mg IV Q6HP PRN PRN Reason: Nausea And Vomiting Sodium Chloride (Saline Flush) 10 ml IV Q8 [facility] Last Admin: 09/27/20 06:02 Dose: 10 ml Documented by: Tamsulosin HCl (Flomax) 0.4 mg PO HS [facility] Last Admin: 09/26/20 21:55 Dose: 0.4 mg Documented by: Terbinafine HCl (Lamisil Crm 1%) 1 dose TOPICAL BID [facility] Last Admin: 09/27/20 10:11 Dose: 1 dose Documented by: Thiamine HCl (Vitamin B1) 100 mg PO DAILY [facility] Last Admin: 09/27/20 10:10 Dose: 100 mg Documented by: Vitamin D (Vitamin D3) 2,000 unit PO DAILY [facility] Last Admin: 09/27/20 10:10 Dose: 2,000 unit Documented by: A/P Narrative A/P Narrative: 1. Acute hypoxic respiratory failure Pulse ox Oxygen therapy to keep active saturation greater than 92% he Is now on 2.5 L 2. Pneumonia, Covid 19, CAP or aspiratoin 3. Positive Covid 19 4. COPD exacerbation Blood culture pending Sputum culture - Gram Positive Cocci in Chains MRSA screen negative Influenza AB is negative Azithromycin and Zosyn Inhalers Lovenox 60 mg twice daily Increased dexamethasone to 5 mg IV every 6 hours. Thiamine, vitamin D, melatonin 25 hydroxy vitamin D CRP 14.9 went down to 8.0 today ferritin 435.5 lactic acid 1.6 troponin < 0.01 x 2 Speech pathology consult 5. HTN Continue home medication 6. 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
[2020-09-27] MEDS: DONEPEZIL 10 MG TABLET PO SCH (20:52)
[2020-09-27] MEDS: MELATONIN 3 MG TABLET PO SCH (20:52)
[2020-09-27] MEDS: ACETAMINOPHEN 325 MG TABLET PO PRN (20:52)
[2020-09-27] MEDS: TAMSULOSIN 0.4 MG CAPSULE PO SCH (20:53)
[2020-09-28] MEDS: PIPERACILLIN SODIUM/TAZOBACTAM 3.375 GM in DEXTROSE 5% IN WATER 50 ML IV SCH ×4 (03:18→20:24)
[2020-09-28] MEDS: DEXAMETHASONE 10 MG/ML VIAL IV SCH (03:18)
[2020-09-28] MEDS: 0.9 % SODIUM CHLORIDE 10 ML SYRINGE IV SCH ×3 (05:24→22:13)
[2020-09-28 05:47] LABS: Basophils # (Auto) 0.01 K/mcL (0.00-0.20); Basophils % (Auto) 0.1 % (0.0-2.0); Eosinophils # (Auto) 0 K/mcL (0.00-0.70); Eosinophils % (Auto) 0 % (0.0-7.0); Hemoglobin 13.5 g/dL (13.5-16.5); Lymphocytes # (Auto) 0.67 K/mcL (1.50-4.80); Lymphocytes % (Auto) 7.1 % (15.0-49.0); Mean Cell Volume 96.1 fL (80.0-100.0); Mean Corpuscular HGB Conc 32.1 g/dL (31.0-36.0); Mean Platelet Volume 9.9 fL (7.4-10.4); Monocytes # (Auto) 0.42 K/mcL (0.10-0.90); Monocytes % (Auto) 4.4 % (1.0-12.0); Neutrophils % (Auto) 88.4 % (38.0-78.0); Platelet Count 233 K/mcL (140-440); RBC 4.37 M/mcL (4.50-5.90); WBC 9.5 K/mcL (4.5-11.0)
[2020-09-28 06:33] LABS: ALT/SGPT 56 U/L (<40); AST/SGOT 45 U/L (<40); Albumin/Globulin Ratio 1.1 (1.0-2.3); Alkaline Phosphatase 220 U/L (39-117); Bilirubin,Total 0.6 mg/dL (0.1-1.0); Blood Urea Nitrogen 40 mg/dL (8-23); Calcium 8.5 mg/dL (8.6-10.4); Carbon Dioxide 26 mmol/L (22-30); Chloride 97 mmol/L (96-108); Globulin 2.8 gm/dL (2.2-3.7); Glomerular Filtration Rate 75; Glucose 122 mg/dL (70-105)
[2020-09-28] MEDS: VITAMIN D3 1,000 UNIT TABLET PO SCH (08:10)
[2020-09-28] MEDS: ENOXAPARIN 60 MG/0.6 ML SYRINGE SQ SCH ×2 (08:11→20:24)
[2020-09-28] MEDS: DOCUSATE SODIUM 100 MG CAPSULE PO SCH ×2 (08:13→20:24)
[2020-09-28] MEDS: LACTOBACILLUS 1 CAPSULE PO SCH (08:13)
[2020-09-28] MEDS: PANTOPRAZOLE 40 MG TABLET PO SCH (08:13)
[2020-09-28] MEDS: POLYETHYLENE GLYCOL 3350 17 GM PACKET PO SCH (08:13)
[2020-09-28] MEDS: THIAMINE 100 MG TABLET PO SCH (08:13)
[2020-09-28] MEDS: TERBINAFINE CRM 1% TUBE 15GM TOPICAL SCH ×2 (08:14→21:23)
[2020-09-28] MEDS: INSULIN LISPRO 1 UNIT/0.01 ML UNIT SQ SCH ×4 (09:20→21:04)
[2020-09-28] MEDS: LACTULOSE 20 GM/30 ML ORAL.SOL PO PRN (15:20)
[2020-09-28] MEDS: IPRATROPIUM/ALBUTEROL 3 ML AMPUL.NEB NEB PRN (19:00)
[2020-09-28] MEDS ORDERED: AMIODARONE 150 MG in DEXTROSE 5% IN WATER 50 ML IV ONE (19:39)
--- NOTE | 2020-09-28 19:49 | Internal Med Progress Note ---
SUBJECTIVE Subjective Patient information: Note initiated : 09/28/20 at 7:44 pm Service Date, if different from initiated Date: [] Patient: Reginald Gonzales 89 y/o M admitted on 09/24/20 for "pos. COVID". Chief Complaint: [] Interval history: Mr. Gonzales is a 89 year old M with a past medical history of COPD and a hypertension who was brought to the ER due to worsening shortness of breath. As per patient, his shortness of breath have been worsening. He had a positive Covid test at the [facility] clinic 2 days ago. He also complains of generalized weakness. In the ER, chest x-ray showed small patchy right basilar infiltrate. Normally he intermittently needs home oxygen but he needs a 2 to 3 L oxygen for [id number]. He has a history of aspiration pneumonia. Other than the symptoms mentioned above, he is fine. 09/25 Patient is alert and awake but he does not answer my questions. He is now on 3 L oxygen Ferritin 435.5 CRP 3.0 BNP 519 Vitamin D 80 Continue current treatment. I may increase steroid and repeat CRP tomorrow. 09/26 Patient does not have any new complaints. He still has mild cough. He is now on 2.5 L CRP 14.9. I will increased dexamethasone to 5 mg IV q 6. hours 09/27 No overnight acute events. Heart rate 50, he is on 2.5 L Creatinine 1.0 CRP went down to 8.0 from 14.9 yesterday. Continue current dose of dexamethasone 09/28- Nurse call, pt in [facility], NO CP however systolics around mid 80s. Remains confused, lasting 30 seconds, Started on amiodarone load/drip, ECHO, Crd enzymes. No family at bedside Constitutional Vitals: Vital Signs Temp Pulse Resp BP Pulse Ox 97.6 F 67 20 147/100 100 09/28/20 16:00 09/28/20 04:00 09/28/20 16:00 09/28/20 16:00 09/28/20 16:00 Period Temp Pulse Resp BP Sys/Eduardo Pulse Ox Last 24 Hr 96.9 F-98.1 F 47-72 15-35 108-152/82-105 91-100 Intake and Output 09/28/20 09/28/20 09/28/20 05:59 13:59 21:59 Intake Total 50 50 Output Total 280 530 Balance -230 -480 Weight 56.79 kg Patient Weight 09/29/20 05:59 Weight 56.79 kg Confused nonlabored breathing Ventricular tachycardia on telemetry No anxiety Intake & Output: Intake & Output 09/28/20 09/28/20 09/28/20 05:59 13:59 21:59 Intake Total 50 50 Output Total 280 530 Balance -230 -480 Weight 56.79 kg Intake: IV 50 50 Zosyn 3.375 gm In Dextrose 5% 50 50 in Water 50 ml @ 100 mls/hr IV Q6H [facility] Rx#:[id number] Output: Void Amount 280 530 Other: Meal [place]/butter Lunch Percent of Meal Consumed 100% 100% Feeding Ability Needs Supervision Assist with Tray Set Up Urine Appearance Clear Clear Urine Color Dark Yellow Pale Urine Odor Normal OBJ DATA Labs CBC & Chem 7: 09/29/20 04:57 09/29/20 04:56 Labs: Abnormal Lab Results 09/28/20 09/28/20 09/28/20 04:43 04:43 04:43 RBC 4.37 L Hgb Hct Neut % (Auto) 88.4 H Lymph % (Auto) 7.1 L Lymph # (Auto) 0.67 L Absolute Neutrophils 8.38 H BUN 40 H Glucose 122 H Calcium 8.5 L AST 45 H ALT 56 H Alkaline Phosphatase 220 H C-React Prot High Sens 4.8 H Total Protein 5.8 L Albumin 3.0 L Albumin/Globulin Ratio 09/27/20 09/27/20 09/27/20 04:21 04:21 04:21 RBC 4.21 L Hgb 13.1 L Hct 40.6 L Neut % (Auto) 85.0 H Lymph % (Auto) 9.0 L Lymph # (Auto) 0.75 L Absolute Neutrophils BUN 27 H Glucose 121 H Calcium 8.5 L AST ALT Alkaline Phosphatase 243 H C-React Prot High Sens 8.0 H Total Protein Albumin 2.8 L Albumin/Globulin Ratio 0.9 L 09/26/20 09/26/20 04:20 04:20 RBC 4.16 L Hgb 12.8 L Hct 40.3 L Neut % (Auto) 80.6 H Lymph % (Auto) 14.3 L Lymph # (Auto) 0.76 L Absolute Neutrophils BUN Glucose Calcium AST ALT Alkaline Phosphatase C-React Prot High Sens 14.9 H Total Protein Albumin Albumin/Globulin Ratio Meds: Medications Acetaminophen (Tylenol) 650 mg PO Q6HP PRN; Protocol PRN Reason: Per Pain Protocol/Fever > 101 Last Admin: 09/27/20 20:52 Dose: 650 mg Documented by: Hydrocodone Bitart/Acetaminophen ([place] 5/325mg) 1 tab PO Q6HP PRN; Protocol PRN Reason: Per Pain Protocol Albuterol/Ipratropium (Duoneb) 3 ml NEB Q6HRT PRN PRN Reason: Shortness Of Breath Or Wheezing Last Admin: 09/28/20 19:00 Dose: 3 ml Documented by: Dexamethasone (Decadron) 6 mg PO DAILY [facility] Dextrose (Dextrose 50%) 0 ml IV UD PRN PRN Reason: Hypoglycemia Diagnostic Test (Pha) (Accu-Chek) 1 each FS [facility] Last Admin: 09/28/20 17:47 Dose: 1 each Documented by: Docusate Sodium (Colace) 100 mg PO BID [facility] Last Admin: 09/28/20 08:13 Dose: 100 mg Documented by: Donepezil HCl (Aricept) 5 mg PO HS [facility] Last Admin: 09/27/20 20:52 Dose: 5 mg Documented by: Enoxaparin Sodium (Lovenox) 60 mg SQ BID [facility] Last Admin: 09/28/20 08:11 Dose: 60 mg Documented by: Glucose (Insta-Glucose) 15 gm PO PRN PRN PRN Reason: Hypoglycemia Piperacillin Sod/Tazobactam (Sod 3.375 gm/ Dextrose) 50 mls @ 100 mls/hr IV Q6H [facility]; Protocol Last Admin: 09/28/20 15:18 Dose: 100 mls/hr Documented by: Amiodarone HCl 150 mg/ (Dextrose) 53 mls @ 300 mls/hr IV ONCE ONE Stop: 09/28/20 19:49 Insulin Human Lispro (Humalog) 0 unit SQ [facility]; Protocol Last Admin: 09/28/20 17:47 Dose: Not Given Documented by: Lactobacillus Rhamnosus (Culturelle) 1 cap PO DAILY [facility] Last Admin: 09/28/20 08:13 Dose: 1 cap Documented by: Lactulose (Cephulac) 10 gm PO DAILYP PRN PRN Reason: Constipation Last Admin: 09/28/20 15:20 Dose: 10 gm Documented by: Melatonin (Melatonin 3mg Tablet) 3 mg PO HSP [facility] Last Admin: 09/27/20 20:52 Dose: 3 mg Documented by: Pantoprazole Sodium (Protonix) 40 mg PO QAMAC [facility] Last Admin: 09/28/20 08:13 Dose: 40 mg Documented by: Polyethylene Glycol (Miralax) 17 gm PO DAILY [facility] Last Admin: 09/28/20 08:13 Dose: 17 gm Documented by: Prochlorperazine (Compazine) 5 mg IV Q6HP PRN PRN Reason: Nausea And Vomiting Sodium Chloride (Saline Flush) 10 ml IV Q8 [facility] Last Admin: 09/28/20 15:14 Dose: 10 ml Documented by: Tamsulosin HCl (Flomax) 0.4 mg PO HS [facility] Last Admin: 09/27/20 20:53 Dose: 0.4 mg Documented by: Terbinafine HCl (Lamisil Crm 1%) 1 dose TOPICAL BID [facility] Last Admin: 09/28/20 08:14 Dose: 1 dose Documented by: Thiamine HCl (Vitamin B1) 100 mg PO DAILY [facility] Last Admin: 09/28/20 08:13 Dose: 100 mg Documented by: Vitamin D (Vitamin D3) 2,000 unit PO DAILY [facility] Last Admin: 09/28/20 08:10 Dose: 2,000 unit Documented by: A/P Narrative A/P Narrative: * VTACH- Start Amio. check ECHO, card enzymes negative today. No CP. MONTSE 2 * Acute hypoxic respiratory failure. 2/2 COVID PNA. on 3 L o2 * Pneumonia, Covid 19, CAP or aspiration * COPD exacerbationn On ABx/ BD * HTN- Stable * Lovenox 60 mg twice daily * History of dementia on donepezil * BPH on tamsulosin PLAN * Abx/steroids * AMIO load/drip * Troponin * echo * Transfer to PCU Critical time spent in excess of 30 minutes on management of V. tach Time Spent With Patient Time: Total time spent is greater than 50% in coordination of care (as documented) at patient's floor/unit and/or counseling patient: QUALITY VTE Deep Vein Thrombosis/Pulmonary Embolism Present on Admission: No
[2020-09-28] MEDS: AMIODARONE 360 MG in PREMIX 1 BAG IV SCH (20:02)
[2020-09-28] MEDS ORDERED: AMIODARONE 150 MG/3 ML VIAL IV ONE (20:02)
[2020-09-28] MEDS: TAMSULOSIN 0.4 MG CAPSULE PO SCH (20:24)
[2020-09-28] MEDS: ACETAMINOPHEN 325 MG TABLET PO PRN (21:07)
[2020-09-28] MEDS: DONEPEZIL 10 MG TABLET PO SCH (21:24)
[2020-09-29] MEDS: AMIODARONE 360 MG in PREMIX 1 BAG IV SCH ×4 (02:03→13:57)
[2020-09-29] MEDS: PIPERACILLIN SODIUM/TAZOBACTAM 3.375 GM in DEXTROSE 5% IN WATER 50 ML IV SCH ×4 (03:00→17:44)
[2020-09-29] MEDS: 0.9 % SODIUM CHLORIDE 10 ML SYRINGE IV SCH ×3 (04:19→21:40)
[2020-09-29 06:01] LABS: Basophils # (Auto) 0.01 K/mcL (0.00-0.20); Basophils % (Auto) 0.1 % (0.0-2.0); Eosinophils # (Auto) 0.14 K/mcL (0.00-0.70); Eosinophils % (Auto) 1.7 % (0.0-7.0); Hematocrit 39.2 % (41.0-55.0); Hemoglobin 12.5 g/dL (13.5-16.5); Lymphocytes % (Auto) 14.3 % (15.0-49.0); Mean Cell Volume 97.5 fL (80.0-100.0); Mean Corpuscular HGB Conc 31.9 g/dL (31.0-36.0); Mean Platelet Volume 9.9 fL (7.4-10.4); Monocytes % (Auto) 13.1 % (1.0-12.0); Neutrophils % (Auto) 70.8 % (38.0-78.0); Platelet Count 223 K/mcL (140-440); RBC 4.02 M/mcL (4.50-5.90); WBC 8.4 K/mcL (4.5-11.0)
[2020-09-29] MEDS: PANTOPRAZOLE 40 MG TABLET PO SCH (07:12)
[2020-09-29] MEDS: INSULIN LISPRO 1 UNIT/0.01 ML UNIT SQ SCH ×4 (07:12→21:16)
[2020-09-29] MEDS: DOCUSATE SODIUM 100 MG CAPSULE PO SCH ×2 (08:35→21:16)
[2020-09-29] MEDS: VITAMIN D3 1,000 UNIT TABLET PO SCH (08:35)
[2020-09-29] MEDS: THIAMINE 100 MG TABLET PO SCH (08:35)
[2020-09-29] MEDS: TERBINAFINE CRM 1% TUBE 15GM TOPICAL SCH ×2 (08:36→21:39)
[2020-09-29] MEDS: LACTULOSE 20 GM/30 ML ORAL.SOL PO PRN (08:36)
[2020-09-29] MEDS: LACTOBACILLUS 1 CAPSULE PO SCH (08:36)
[2020-09-29 08:42] LABS: ALT/SGPT 96 U/L (<40); AST/SGOT 62 U/L (<40); Albumin 2.7 gm/dL (3.2-5.2); Albumin/Globulin Ratio 1.2 (1.0-2.3); Alkaline Phosphatase 175 U/L (39-117); Bilirubin,Direct < 0.2 mg/dL (<0.3); Bilirubin,Total 0.2 mg/dL (0.1-1.0); Blood Urea Nitrogen 45 mg/dL (8-23); Calcium 7.8 mg/dL (8.6-10.4); Carbon Dioxide 27 mmol/L (22-30); Chloride 102 mmol/L (96-108); Globulin 2.3 gm/dL (2.2-3.7); Glomerular Filtration Rate 59; Glucose 223 mg/dL (70-105); Lactate Dehydrogenase 186 U/L (135-225); Triglycerides 89 mg/dL (<150); Uric Acid 2.8 mg/dL (2.5-8.0)
[2020-09-29] MEDS ORDERED: DEXAMETHASONE 4 MG TABLET PO SCH (09:00)
[2020-09-29] MEDS: ENOXAPARIN 60 MG/0.6 ML SYRINGE SQ SCH ×2 (09:01→21:38)
[2020-09-29] MEDS: POLYETHYLENE GLYCOL 3350 17 GM PACKET PO SCH (09:01)
--- NOTE | 2020-09-29 09:11 | Internal Med Progress Note ---
SUBJECTIVE Subjective Patient information: Note initiated : 09/29/20 at 9:08 am Service Date, if different from initiated Date: [] Patient: Reginald Gonzales 89 y/o M admitted on 09/24/20 for "pos. COVID". Chief Complaint: [] Interval history: Mr. Gonzales is a 89 year old M with a past medical history of COPD and a hypertension who was brought to the ER due to worsening shortness of breath. As per patient, his shortness of breath have been worsening. He had a positive Covid test at the [facility] 2 days ago. He also complains of generalized weakness. In the ER, chest x-ray showed small patchy right basilar infiltrate. Normally he intermittently needs home oxygen but he needs a 2 to 3 L oxygen for [id number]-hsetc. He has a history of aspiration pneumonia. Other than the symptoms mentioned above, he is fine. 09/25 Patient is alert and awake but he does not answer my questions. He is now on 3 L oxygen Ferritin 435.5 CRP 3.0 BNP 519 Vitamin D 80 Continue current treatment. I may increase steroid and repeat CRP tomorrow. 09/26 Patient does not have any new complaints. He still has mild cough. He is now on 2.5 L CRP 14.9. I will increased dexamethasone to 5 mg IV q 6. hours 09/27 No overnight acute events. Heart rate 50, he is on 2.5 L Creatinine 1.0 CRP went down to 8.0 from 14.9 yesterday. Continue current dose of dexamethasone 09/28- [facility] however systolics around mid 80s. Remains confused, lasting 30 seconds, Started on amiodarone load/drip, ECHO, Crd enzymes. No family at bedside 09/29-continuing on amiodarone. V. tach resolved. Now in A. fib rate controlled. Remains confused. White count 8.4. Creatinine 1.1, LFTs stable, phosphorus 2 start replacement. Troponin negative. Echocardiogram pending Constitutional Vitals: Vital Signs Temp Pulse Resp BP Pulse Ox 97.1 F 88 16 130/90 95 09/29/20 08:00 09/29/20 04:00 09/29/20 08:00 09/29/20 08:00 09/29/20 08:00 Period Temp Pulse Resp BP Sys/Eduardo Pulse Ox Last 24 Hr 97.1 F-98.8 F 48-128 14-33 82-152/46-100 94-100 Intake and Output 09/28/20 09/29/20 09/29/20 21:59 05:59 13:59 Intake Total 50 553 Output Total 225 Balance 50 328 Weight 58.604 kg Intermittently confused Nonlabored breathing A. fib now rate controlled, V. tach resolved Intake & Output: Intake & Output 09/28/20 09/29/20 09/29/20 21:59 05:59 13:59 Intake Total 50 553 Output Total 225 Balance 50 328 Weight 58.604 kg Intake: IV 50 353 Cordarone 150 mg In Dextrose 5% 53 in Water 50 ml @ 300 mls/hr IV ONCE ONE Rx#:[id number] Nexterone 360 mg In Premix 1 200 Bag @ 1 MG/MIN 33.333 mls/hr IV .Q6H SUSIE Rx#:[id number] Zosyn 3.375 gm In Dextrose 5% 50 100 in Water 50 ml @ 100 mls/hr IV Q6H [facility] Rx#:[id number] Oral 200 Output: Void Amount 225 Other: Meal Lunch Wheat [place] (1)/butter Percent of Meal Consumed 100% 100% Feeding Ability Assist with Tray Set Up Independent Urine Appearance Clear Urine Color Dark Yellow OBJ DATA Labs CBC & Chem 7: 09/29/20 04:57 09/29/20 04:56 Labs: Abnormal Lab Results 09/29/20 09/29/20 09/28/20 04:57 04:56 04:43 RBC 4.02 L Hgb 12.5 L Hct 39.2 L Neut % (Auto) Lymph % (Auto) 14.3 L [place] % (Auto) 13.1 H Lymph # (Auto) 1.20 L [place] # (Auto) 1.10 H Absolute Neutrophils BUN 45 H 40 H Glucose 223 H 122 H Calcium 7.8 L 8.5 L Phosphorus 2.0 L AST 62 H 45 H ALT 96 H 56 H Alkaline Phosphatase 175 H 220 H C-React Prot High Sens Total Protein 5.0 L 5.8 L Albumin 2.7 L 3.0 L Albumin/Globulin Ratio 09/28/20 09/28/20 09/27/20 04:43 04:43 04:21 RBC 4.37 L Hgb Hct Neut % (Auto) 88.4 H Lymph % (Auto) 7.1 L [place] % (Auto) Lymph # (Auto) 0.67 L [place] # (Auto) Absolute Neutrophils 8.38 H BUN 27 H Glucose 121 H Calcium 8.5 L Phosphorus AST ALT Alkaline Phosphatase 243 H C-React Prot High Sens 4.8 H Total Protein Albumin 2.8 L Albumin/Globulin Ratio 0.9 L 09/27/20 09/27/20 04:21 04:21 RBC 4.21 L Hgb 13.1 L Hct 40.6 L Neut % (Auto) 85.0 H Lymph % (Auto) 9.0 L [place] % (Auto) Lymph # (Auto) 0.75 L [place] # (Auto) Absolute Neutrophils BUN Glucose Calcium Phosphorus AST ALT Alkaline Phosphatase C-React Prot High Sens 8.0 H Total Protein Albumin Albumin/Globulin Ratio Meds: Medications Acetaminophen (Tylenol) 650 mg PO Q6HP PRN; Protocol PRN Reason: Per Pain Protocol/Fever > 101 Last Admin: 09/28/20 21:07 Dose: 650 mg Documented by: Hydrocodone Bitart/Acetaminophen (Waldo 5/325mg) 1 tab PO Q6HP PRN; Protocol PRN Reason: Per Pain Protocol Albuterol/Ipratropium (Duoneb) 3 ml NEB Q6HRT PRN PRN Reason: Shortness Of Breath Or Wheezing Last Admin: 09/28/20 19:00 Dose: 3 ml Documented by: Dexamethasone (Decadron) 6 mg PO DAILY [facility] Last Admin: 09/29/20 08:35 Dose: 6 mg Documented by: Dextrose (Dextrose 50%) 0 ml IV UD PRN PRN Reason: Hypoglycemia Diagnostic Test (Pha) (Accu-Chek) 1 each FS ACHS [facility] Last Admin: 09/29/20 07:11 Dose: 1 each Documented by: Docusate Sodium (Colace) 100 mg PO BID [facility] Last Admin: 09/29/20 08:35 Dose: 100 mg Documented by: Donepezil HCl (Aricept) 5 mg PO HS [facility] Last Admin: 09/28/20 21:24 Dose: Not Given Documented by: Enoxaparin Sodium (Lovenox) 60 mg SQ BID [facility] Last Admin: 09/29/20 09:01 Dose: 60 mg Documented by: Glucose (Insta-Glucose) 15 gm PO PRN PRN PRN Reason: Hypoglycemia Piperacillin Sod/Tazobactam (Sod 3.375 gm/ Dextrose) 50 mls @ 100 mls/hr IV Q6H [facility]; Protocol Last Admin: 09/29/20 08:36 Dose: 100 mls/hr Documented by: AMIODARONE 360 mg/ Premix 200 mls @ 33.333 mls/hr IV .Q6H [facility]; Protocol Stop: 09/29/20 20:00 Last Admin: 09/29/20 09:01 Dose: Not Given Documented by: Insulin Human Lispro (Humalog) 0 unit SQ ACHS [facility]; Protocol Last Admin: 09/29/20 07:12 Dose: Not Given Documented by: Lactobacillus Rhamnosus (Culturelle) 1 cap PO DAILY [facility] Last Admin: 09/29/20 08:36 Dose: 1 cap Documented by: Lactulose (Cephulac) 10 gm PO DAILYP PRN PRN Reason: Constipation Last Admin: 09/29/20 08:36 Dose: 10 gm Documented by: Melatonin (Melatonin 3mg Tablet) 3 mg PO HSP [facility] Last Admin: 09/27/20 20:52 Dose: 3 mg Documented by: Pantoprazole Sodium (Protonix) 40 mg PO QAMAC [facility] Last Admin: 09/29/20 07:12 Dose: 40 mg Documented by: Polyethylene Glycol (Miralax) 17 gm PO DAILY [facility] Last Admin: 09/29/20 09:01 Dose: 17 gm Documented by: Prochlorperazine (Compazine) 5 mg IV Q6HP PRN PRN Reason: Nausea And Vomiting Sodium Chloride (Saline Flush) 10 ml IV Q8 [facility] Last Admin: 09/29/20 04:19 Dose: 10 ml Documented by: Tamsulosin HCl (Flomax) 0.4 mg PO HS [facility] Last Admin: 09/28/20 20:24 Dose: 0.4 mg Documented by: Terbinafine HCl (Lamisil Crm 1%) 1 dose TOPICAL BID [facility] Last Admin: 09/29/20 08:36 Dose: 1 dose Documented by: Thiamine HCl (Vitamin B1) 100 mg PO DAILY [facility] Last Admin: 09/29/20 08:35 Dose: 100 mg Documented by: Vitamin D (Vitamin D3) 2,000 unit PO DAILY [facility] Last Admin: 09/29/20 08:35 Dose: 2,000 unit Documented by: A/P Narrative A/P Narrative: * VTACH-resolved on amiodarone. Echocardiogram pending. Troponins negative. No chest pain or hypertension. Clinically stable. * A. fib RVR now rate controlled on amiodarone. * Acute hypoxic respiratory failure. 2/2 COVID PNA. on 3 L o2 * Pneumonia, Covid 19, CAP or aspiration on dexamethasone. Clinically improved. * COPD exacerbationn On ABx/ BD/steroids * HTN- Stable * Lovenox 60 mg twice daily * History of dementia on donepezil * BPH on tamsulosin PLAN * Abx/steroids * Continue amiodarone * Start beta-raya * Await echo * PCU care Critical time spent in excess of 30 minutes on management of V. tach Time Spent With Patient Time: Total time spent is greater than 50% in coordination of care (as documented) at patient's floor/unit and/or counseling patient: QUALITY VTE Deep Vein Thrombosis/Pulmonary Embolism Present on Admission: No
[2020-09-29] MEDS ORDERED: HYDROcodone/APAP 5/325MG TABLET PO PRN (09:36)
[2020-09-29] MEDS ORDERED: DEXTROSE 50% 50 ML VIAL IV PRN (09:36)
[2020-09-29] MEDS ORDERED: DEXTROSE 31 GM ORAL.SUSP PO PRN (09:36)
[2020-09-29] MEDS ORDERED: LACTULOSE 20 GM/30 ML ORAL.SOL PO PRN (09:36)
[2020-09-29] MEDS ORDERED: MELATONIN 3 MG TABLET PO SCH (09:36)
[2020-09-29] MEDS ORDERED: IPRATROPIUM/ALBUTEROL 3 ML AMPUL.NEB NEB PRN (09:36)
[2020-09-29] MEDS ORDERED: PROCHLORPERAZINE 10 MG/2 ML VIAL IV PRN (09:36)
[2020-09-29] MEDS ORDERED: ACETAMINOPHEN 325 MG TABLET PO PRN (09:36)
[2020-09-29] MEDS ORDERED: TAMSULOSIN 0.4 MG CAPSULE PO SCH (21:00)
[2020-09-29] MEDS ORDERED: DONEPEZIL 10 MG TABLET PO SCH ×2 (21:00)
[2020-09-30] MEDS: PIPERACILLIN SODIUM/TAZOBACTAM 3.375 GM in DEXTROSE 5% IN WATER 50 ML IV SCH ×3 (05:01→12:39)
[2020-09-30] MEDS: 0.9 % SODIUM CHLORIDE 10 ML SYRINGE IV SCH (06:02)
[2020-09-30 06:42] LABS: Basophils # (Auto) 0.01 K/mcL (0.00-0.20); Basophils % (Auto) 0.1 % (0.0-2.0); Eosinophils # (Auto) 0 K/mcL (0.00-0.70); Eosinophils % (Auto) 0 % (0.0-7.0); Hemoglobin 12.5 g/dL (13.5-16.5); Lymphocytes # (Auto) 1.48 K/mcL (1.50-4.80); Lymphocytes % (Auto) 16.4 % (15.0-49.0); Mean Cell Volume 98.3 fL (80.0-100.0); Mean Corpuscular HGB Conc 31.3 g/dL (31.0-36.0); Mean Platelet Volume 10.1 fL (7.4-10.4); Monocytes # (Auto) 1.08 K/mcL (0.10-0.90); Neutrophils % (Auto) 71.5 % (38.0-78.0); Platelet Count 218 K/mcL (140-440); RBC 4.07 M/mcL (4.50-5.90); Red Cell Distribution Width 13.2 % (11.5-14.5)
[2020-09-30 07:08] LABS: ALT/SGPT 98 U/L (<40); AST/SGOT 42 U/L (<40); Albumin 2.7 gm/dL (3.2-5.2); Alkaline Phosphatase 173 U/L (39-117); Bilirubin,Direct < 0.2 mg/dL (<0.3); Bilirubin,Total 0.5 mg/dL (0.1-1.0); Blood Urea Nitrogen 40 mg/dL (8-23); Calcium 8.3 mg/dL (8.6-10.4); Carbon Dioxide 27 mmol/L (22-30); Chloride 105 mmol/L (96-108); Globulin 2.7 gm/dL (2.2-3.7); Glomerular Filtration Rate 75; Glucose 83 mg/dL (70-105); Lactate Dehydrogenase 220 U/L (135-225); Phosphorous 3.2 mg/dL (2.5-4.5); Triglycerides 84 mg/dL (<150); Uric Acid 2.5 mg/dL (2.5-8.0)
[2020-09-30] MEDS ORDERED: PANTOPRAZOLE 40 MG TABLET PO SCH (07:30)
[2020-09-30] MEDS: INSULIN LISPRO 1 UNIT/0.01 ML UNIT SQ SCH ×2 (08:24→12:48)
[2020-09-30] MEDS ORDERED: [UNRECOGNIZED DRUG - OTHER] SL PRN (08:27)
--- NOTE | 2020-09-30 08:37 | XRay Report ---
HISTORY: Short of breath and possible COVID pneumonia FINDINGS: A thick wedge-shaped zone of consolidated lung parenchyma is present posteriorly medially in the right lower lobe. This is a new finding since the prior x-ray done on 07/31/20. At that time there was an obliquely oriented band of discoid atelectasis extending superior and lateral from the right lower hilum. That band of atelectasis has since resolved. There is chronic stable mild interstitial fibrosis centrally in the right lung. The remainder of the lung clemons are clear. No pleural effusion is present. The heart size is normal. The aorta is tortuous. There are multiple old healed bilateral rib fractures and multiple old compression fractures in the spine. IMPRESSION: New large band of atelectasis in the right lower lobe. There is no radiographic evidence of Covid pneumonia. Interpreted and Authenticated by: Ramon Mendosa 09/30/20
[2020-09-30] MEDS ORDERED: LACTOBACILLUS 1 CAPSULE PO SCH (09:00)
[2020-09-30] MEDS ORDERED: POLYETHYLENE GLYCOL 3350 17 GM PACKET PO SCH (09:00)
[2020-09-30] MEDS ORDERED: DEXAMETHASONE 4 MG TABLET PO SCH (09:00)
[2020-09-30] MEDS ORDERED: PREVAGEN PO SCH (09:00)
[2020-09-30] MEDS: ENOXAPARIN 60 MG/0.6 ML SYRINGE SQ SCH (12:39)
[2020-09-30] MEDS: DOCUSATE SODIUM 100 MG CAPSULE PO SCH ×2 (12:40→13:18)
[2020-09-30] MEDS: VITAMIN D3 1,000 UNIT TABLET PO SCH ×2 (12:41→13:17)
[2020-09-30] MEDS: THIAMINE 100 MG TABLET PO SCH ×2 (12:42→13:17)
--- NOTE | 2020-09-30 12:43 | Discharge Summary ---
Discharge Provider Provider Patient information: Note initiated : 09/30/20 at 12:30 pm Service Date, if different from initiated Date: [] Patient: Reginald Gonzales 89 y/o M admitted on 09/24/20 for "pos. COVID". Discharge diagnosis * A. fib RVR -now rate controlled. Patient's refused treatment with amiodarone. * Acute hypoxic respiratory failure. 11/03 COVID PNA. Clinically resolved. Now on 2 L oxygen. * COVID-19 pneumonia managed on dexamethasone. Clinically improved. Continue additional 4 days dexamethasone * Failure to thrive in the setting of advanced dementia. Patient was on hospice earlier this year however now is a full code due to Chelsea's wishes. However going through the documentation there has been a steady decline in cognition/quality of life over the past few months. 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 No evidence of shunt malfunction. 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 * COPD exacerbationn On ABx/ BD/steroids * HTN- Stable * History of dementia with gradual progression. Continued on home dose donepezil * BPH managed on tamsulosin Brief hospital course Mr. Gonzales is a 89 year old M with a past medical history of COPD and a hypertensio n who was brought to the ER due to worsening shortness of breath. As per patient, his shortness of breath have been worsening. He had a positive Covid test at the [place] [facility] 2 days ago. He also complains of generalized weakness. In the ER, chest x-ray showed small patchy right basilar infiltrate. Normally he intermittently needs home oxygen but he needs a 2 to 3 L oxygen for [id number]. He has a history of aspiration pneumonia. Other than the symptoms mentioned above, he is fine. 09/25 Patient is alert and awake but he does not answer my questions. He is now on 3 L oxygen Ferritin 435.5 CRP 3.0 BNP 519 Vitamin D 80 Continue current treatment. I may increase steroid and repeat CRP tomorrow. 09/26 Patient does not have any new complaints. He still has mild cough. He is now on 2.5 L CRP 14.9. I will increased dexamethasone to 5 mg IV q 6. hours 09/27 No overnight acute events. Heart rate 50, he is on 2.5 L Creatinine 1.0 CRP went down to 8.0 from 14.9 yesterday. Continue current dose of dexamethasone 09/28- Nurse call, pt in [facility], NO CP however systolics around mid 80s. Remains confused, lasting 30 seconds, Started on amiodarone load/drip, ECHO, Crd enzymes. No family at bedside 09/29-continuing on amiodarone. V. tach resolved. Now in A. fib rate controlled. Remains confused. White count 8.4. Creatinine 1.1, LFTs stable, phosphorus 2 start replacement. Troponin negative. Echocardiogram pending Nursing staff called regarding patient's 's concerns and request for callback. Extended discussion with patient's Chelsea on telephone. Chelsea expressed specific concerns about nursing care and patient's behavior consistent with prior episodes of seizures. She endorsed that she has been evaluated by neurology and neurosurgery and has a shunt in place. The last time the shunt was evaluated by Dr. Mervin cloud at [facility] was in August. Per Chelsea antiseizure medications in the past has not helped and therefore she now uses an [id number] health supplement prevention that has kept him seizure- free. Also she expressed concern about possible shunt failure and the need for neuroimaging and consulting Dr. Mervin cloud and possible transfer to [facility]. I assured her that we will touch base with neurosurgeon for an opinion however transfer to tertiary center/[facility] is contingent to neurosurgeon accepting a transfer if deemed necessary for further management. Patient's also expressed concerns about amiodarone due to timing of patient's inappropriate behavior/cross leg/inappropriate remarks towards nursing staff which Chelsea felt is consistent with prior seizure episodes. She felt that the symptoms were triggered due to amiodarone. Amiodarone will be discontinued at this time as request. She clearly understands the risk of atrial fibrillation/frequent PVCs and ventricular tachycardia. She confirmed the patient remains a full code and should neuroimaging is necessary for stent evaluation he should be intubated as he was unable to tolerate MRI in the past 3 attempts and required general anesthesia. Call was placed to [facility] for consultation with neurosurgeon Dr. Willard 09/30-Case discussed with Dr. Mervin cloud neurosurgery at [facility]. Patient is well-known to the neurosurgery office. Dr. Mervin cloud provide information about the [employer] shunt but has been working perfectly. He recently followed up the patient and the shunt has been functioning perfectly. He did not think the current symptoms are due to the shunt malfunction. He was also of the opinion that patient's concerns and repeated insistence for shunt evaluation have led to numerous wasteful neuroimagings in the past. Also Dr. Aguilar confirmed that patient was offered antiseizure medication in the past by neurologist however Chelsea refused antiseizure medications and opted to use an [id number] health supplement for his seizure-like episodes. At this time there is no further treatment possible to improve patient's cognition or quality of life. reviewing prior documentation patient's current status appears a progression of advanced dementia/gradual failure to thrive with gradual decline in cognition and dementia associated intermittent psychosis. There were no observable seizure-like episodes during this hospitalization. His vitals, imaging and lab work are all within normal limits. He is close to his baseline oxygen needs. At this time patient is ready for discharge. I discussed the case with patient's Chelsea on phone. SHe indicated that SNF is not an option for her . She would want her discharged home where she has caregivers to provide help. She however was unable to arrange transport. Case management will coordinate an ambulance transfer back to home. Date of admission: 09/24/20 19:05 Discharge date: 09/30/20 Primary care physician: Unknown Unknown Consults: 09/24/20 Consult to Physician [CONS] Stat Comment: Consulting Provider: Conrad Chavarria Reason For Exam: Physician to Consult Discharge Meds Discharge Medications Home Medications donepezil 5 mg PO QHS 09/24/20 [History Confirmed 09/25/20 Last Taken 09/23/20 21:00] tamsulosin 0.4 mg PO HS 09/24/20 [History Confirmed 09/25/20 Last Taken 09/23/20 21:00] Herbalife Cell Activator 1 cap PO DAILY 09/25/20 [History Confirmed 09/25/20 Last Taken Unknown] Herbalife Formula 2 Mvi 1 tab PO DAILY 09/25/20 [History Confirmed 09/25/20 Last Taken Unknown] Metamucil 1 tbsp PO QDAY 09/25/20 [History Confirmed 09/25/20 Last Taken Unknown] Prevagen 1 cap PO DAILY 09/25/20 [History Confirmed 09/25/20 Last Taken Unknown] Probiotic Pearls Complete 1 cap PO QDAY 09/25/20 [History Confirmed 09/25/20 Last Taken Unknown] azithromycin See Rx Instructions .ROUTE .COMPLEX 09/25/20 [History Confirmed 09/25/20 Last Taken Unknown] ibuprofen 100 mg PO Q6HP PRN 09/25/20 [History Confirmed 09/25/20 Last Taken 09/22/20 21:00] ipratropium-albuterol 3 ml INHALATION Q6HP PRN 09/25/20 [History Confirmed 09/25/20 Last Taken Unknown] polyethylene glycol 3350 [Miralax] 17 g PO QDAY 09/25/20 [History Confirmed 09/25/20 Last Taken Unknown] terbinafine HCl 1 applic TOPICAL BID 09/25/20 [History Confirmed 09/25/20 Last Taken Unknown] Neilmed Sinus Rinse Complete 1 ea TID 09/27/20 [History Confirmed 09/27/20 Last Taken Unknown] dexamethasone 6 mg PO DAILY #4 tab 09/30/20 [Rx Last Taken Unknown] COURSE Hospital Course Hospital course: . Discharge diagnosis: . Time Spent with Patient Time attestation: Total time spent providing and/or coordinating discharge services: EXAM Constitutional Vitals: Temp Pulse Resp BP Pulse Ox 97.8 F 54 L 20 133/79 93 09/30/20 08:00 09/30/20 00:01 09/30/20 08:00 09/30/20 08:00 09/30/20 08:00 Discharge Data Data Completed and Pending Labs on day of discharge: Labs from last 24 hours 09/30/20 09/30/20 04:59 04:59 WBC 9.0 RBC 4.07 L Hgb 12.5 L Hct 40.0 L MCV 98.3 MCH 30.7 MCHC 31.3 RDW 13.2 Plt Count 218 MPV 10.1 Neut % (Auto) 71.5 Lymph % (Auto) 16.4 [place] % (Auto) 12.0 Eos % (Auto) 0 Baso % (Auto) 0.1 Lymph # (Auto) 1.48 L [place] # (Auto) 1.08 H Eos # (Auto) 0 Baso # (Auto) 0.01 Absolute Neutrophils 6.44 Sodium 139 Potassium 4.3 Chloride 105 Carbon Dioxide 27 Anion Gap 7.0 L BUN 40 H Creatinine 0.9 GFR Calculation 75 Glucose 83 Uric Acid 2.5 Calcium 8.3 L Phosphorus 3.2 Magnesium 2.2 Total Bilirubin 0.5 Direct Bilirubin < 0.2 GGT 54 AST 42 H ALT 98 H Alkaline Phosphatase 173 H Lactate Dehydrogenase 220 Total Protein 5.4 L Albumin 2.7 L Globulin 2.7 Albumin/Globulin Ratio 1.0 Triglycerides 84 Discharge Plan Patient/Caregiver Discharge Instructions Activity: increase activity as tolerated Diet: Regular Diet Activity Restrictions/Additional Instructions: Follow-up primary care physician Soledad العراقي at [facility] clinic in 5 to 7 days Follow-up with neurosurgery as scheduled Diet and activity as advised Continue dexamethasone for additional 4 days for Covid pneumonia Prescriptions: New dexamethasone 4 mg Tablet 6 mg PO DAILY Qty: 4 RF: 0 Continued tamsulosin 0.4 mg Capsule 0.4 mg PO HS RF: 0 donepezil 5 mg Tablet 5 mg PO QHS RF: 0 ibuprofen 100 mg Tablet 100 mg PO Q6HP PRN (Reason: pain) RF: 0 azithromycin 250 mg Tablet See Rx Instructions .ROUTE .COMPLEX RF: 0 polyethylene glycol 3350 [Miralax] 17 gram/dose Powder 17 g PO QDAY RF: 0 Metamucil 3.4 gram/5.4 gram Powder 1 tbsp PO QDAY RF: 0 Prevagen 1 cap PO DAILY RF: 0 Herbalife Cell Activator 1 cap PO DAILY RF: 0 Herbalife Formula 2 Mvi 1 tab PO DAILY RF: 0 ipratropium-albuterol 0.5 mg-3 mg(2.5 mg base)/3 mL solution for nebulization 3 ml INHALATION Q6HP PRN (Reason: shortness of breath or wheezing) RF: 0 terbinafine HCl 1 % Cream 1 applic TOPICAL BID RF: 0 Probiotic Pearls Complete 1 billion cell Capsule,Delayed Release(Dr/Ec) 1 cap PO QDAY RF: 0 Neilmed Sinus Rinse Complete Packet With Rinse Device 1 ea TID RF: 0 Follow Up Plan Follow up with: Debby Hooks PA-C [Physician Foam Tank Laminator] - 10/05/20 11:20 am (This will be a video visit. If not able to do this, they will call you.) Patient Disposition: Home Health Service Prognosis: Fair Rehab Potential: Undetermined I certify that the patient requires SNF services: No Overall status at discharge: patient is progressing back to baseline Discharge Orders: Discharge Order (Routine); Ordered 09/30/20 Ordered By: Ferdinand DE LEON VTE Deep Vein Thrombosis/Pulmonary Embolism Present on Admission: No
[2020-09-30] MEDS: TERBINAFINE CRM 1% TUBE 15GM TOPICAL SCH ×2 (12:50→13:17)
[2020-09-30] MEDS ORDERED: [UNRECOGNIZED DRUG - OTHER] SL SCH (21:00)
== END 2020-09-30 17:07 | disposition home health service (06) | DRG 177 ==
LOC: ED 13:35 → ICU 19:02
PROVIDERS: ADMIT Internal Medicine; ATTEND Internal Medicine